=== PATIENT | female | born 1940 | race Caucasian/White ===

== ENCOUNTER 2020-03-09 10:21 | Outpatient (CLI) | payer MEDICARE, SELFPAY ==
[2020-03-09 11:07] LABS: Basophils Percent Auto 0.4 % (0.2-1.2); Eosinophils Absolute Auto 0.3 K/mm3 (0-0.3); Eosinophils Percent Auto 4.8 % (0-4.4); Hematocrit 39.4 % (37.0-47.0); Hemoglobin 12.9 g/dL (12.0-15.0); Hemoglobin A1C 6.4 % (<5.7); Immature Granulocyte Absolute 0.06 K/mm3 (0.00-0.031); Immature Granulocyte Percent A 0.9 % (0-0.5); Lymphocytes Absolute Auto 1.57 K/mm3 (0.9-3.2); Lymphocytes Percent Auto 22.4 % (18.3-44.2); Mean Corpuscular HGB Conc 32.7 g/dl (32-36); Mean Corpuscular Volume 91.6 fl (80-100); Mean Platelet Volume 9.8 fl (7.4-10.4); Monocytes Absolute Auto 0.6 K/mm3 (0.1-0.6); Monocytes Percent Auto 8.8 % (2.6-8.5); Neutrophils Absolute Auto 4.4 K/mm3 (1.3-6.7); Neutrophils Percent Auto 62.7 % (45.5-73.1); Platelet Count Result 184 k/mm3 (150-375)
[2020-03-09 11:09] LABS: Alanine Aminotransferase 14 U/L (4-35); Albumin Level 4.1 g/dL (3.5-5.1); Alkaline Phosphatase 95 U/L (38-126); Aspartate Amino Transferase 22 U/L (14-36); Bilirubin,Total 0.6 mg/dL (0.2-1.3); Blood Urea Nitrogen 15 mg/dL (7-17); Calcium 8.7 mg/dL (8.4-10.2); Carbon Dioxide 26 mmol/L (22-30); Chloride 107 mmol/L (98-107); Cholesterol 147 mg/dL (0-200); Estimated Glomerular Filt Rate > 60; Glucose 124 mg/dL (65-105); HDL Direct 57 mg/dL; Sodium 139 mmol/L (137-145); Triglycerides 93 mg/dL (<150)
[2020-03-09 11:20] LABS: LDL Cholesterol Direct 61 mg/dL
[2020-03-09 11:26] LABS: Creatinine Urine 50.3 mg/dL
[2020-03-09 11:30] LABS: MALB Creatinine Ratio 49.9 mg/g (0-30); Microalbumin Urine Random 25.1 mg/L (0-16.7)
== END 2020-03-09 10:22 | disposition home or self-care (01) ==
PROVIDERS: PCP Family Medicine; Visit Provider Family Medicine
DX: J44.9 Chronic obstructive pulmonary disease, unspecified (principal); E78.5 Hyperlipidemia, unspecified; E11.9 Type 2 diabetes mellitus without complications; I95.1 Orthostatic hypotension; E53.8 Deficiency of other specified B group vitamins; D50.9 Iron deficiency anemia, unspecified
CPT/HCPCS: 36415; 80053; 80061; 82043; 82607; 83036; 84443; 85025

== ENCOUNTER 2020-06-30 15:39 | Outpatient (CLI) | payer MEDICARE, SELFPAY ==
[2020-06-30 16:20] LABS: Basophils Percent Auto 0.3 % (0.2-1.2); Eosinophils Absolute Auto 0.4 K/mm3 (0-0.3); Eosinophils Percent Auto 4.8 % (0-4.4); Hematocrit 39.6 % (37.0-47.0); Immature Granulocyte Absolute 0.01 K/mm3 (0.00-0.031); Immature Granulocyte Percent A 0.1 % (0-0.5); Lymphocytes Absolute Auto 1.55 K/mm3 (0.9-3.2); Mean Corpuscular HGB Conc 32.8 g/dl (32-36); Mean Corpuscular Hemoglobin 29.3 pg (26-34); Mean Corpuscular Volume 89.4 fl (80-100); Mean Platelet Volume 10.3 fl (7.4-10.4); Monocytes Absolute Auto 0.8 K/mm3 (0.1-0.6); Monocytes Percent Auto 9.3 % (2.6-8.5); Neutrophils Absolute Auto 5.8 K/mm3 (1.3-6.7); Neutrophils Percent Auto 67.5 % (45.5-73.1); Platelet Count Result 194 k/mm3 (150-375); Red Blood Count 4.43 M/mm3 (4.2-5.4); Red Cell Distribution Width 14.1 % (11.5-14.5); White Blood Count 8.6 K/mm3 (4.5-10.0)
== END 2020-06-30 15:40 | disposition home or self-care (01) ==
PROVIDERS: PCP Family Medicine; Visit Provider Internal Medicine Medical Oncology
DX: D50.9 Iron deficiency anemia, unspecified (principal)
CPT/HCPCS: 36415; 82728; 85025

== ENCOUNTER 2020-09-26 14:06 | Outpatient (CLI) | payer MEDICARE, SELFPAY ==
[2020-09-26 15:02] LABS: Basophils Percent Auto 0.3 % (0.2-1.2); Eosinophils Absolute Auto 0.3 K/mm3 (0-0.3); Eosinophils Percent Auto 2.1 % (0-4.4); Hematocrit 42.9 % (37.0-47.0); Hemoglobin 14.3 g/dL (12.0-15.0); Immature Granulocyte Absolute 0.06 K/mm3 (0.00-0.031); Immature Granulocyte Percent A 0.5 % (0-0.5); Lymphocytes Absolute Auto 1.47 K/mm3 (0.9-3.2); Lymphocytes Percent Auto 12.1 % (18.3-44.2); Mean Corpuscular HGB Conc 33.3 g/dl (32-36); Mean Corpuscular Hemoglobin 29.7 pg (26-34); Mean Platelet Volume 9.7 fl (7.4-10.4); Monocytes Percent Auto 7.8 % (2.6-8.5); Neutrophils Absolute Auto 9.3 K/mm3 (1.3-6.7); Neutrophils Percent Auto 77.2 % (45.5-73.1); Platelet Count Result 188 k/mm3 (150-375); Red Blood Count 4.82 M/mm3 (4.2-5.4); Red Cell Distribution Width 14.8 % (11.5-14.5); White Blood Count 12.1 K/mm3 (4.5-10.0)
[2020-09-26 15:15] LABS: Alanine Aminotransferase 17 U/L (4-35); Albumin Level 4.1 g/dL (3.5-5.1); Alkaline Phosphatase 83 U/L (38-126); Anion Gap 9 mmol/L (8-16); Aspartate Amino Transferase 25 U/L (14-36); Bilirubin,Total 0.6 mg/dL (0.2-1.3); Blood Urea Nitrogen 14 mg/dL (7-17); Calcium 9.1 mg/dL (8.4-10.2); Carbon Dioxide 28 mmol/L (22-30); Chloride 105 mmol/L (98-107); Cholesterol 153 mg/dL (0-200); Estimated Glomerular Filt Rate > 60; Glucose 123 mg/dL (65-105); HDL Direct 68 mg/dL; Potassium 3.9 mmol/L (3.4-5.0); Sodium 142 mmol/L (137-145); Triglycerides 155 mg/dL (<150)
[2020-09-26 15:26] LABS: LDL Cholesterol Direct 50 mg/dL
[2020-09-26 16:28] LABS: Vitamin D 25 Hydroxy 16.1 ng/mL
[2020-09-26 17:18] LABS: Ferritin 9.79 ng/mL (11.1-264)
== END 2020-09-26 14:07 | disposition home or self-care (01) ==
PROVIDERS: PCP Family Medicine; Referring Provider Internal Medicine Medical Oncology; Visit Provider Nurse Practitioner
DX: E78.5 Hyperlipidemia, unspecified (principal); E11.9 Type 2 diabetes mellitus without complications; E55.9 Vitamin D deficiency, unspecified; E53.8 Deficiency of other specified B group vitamins; D50.9 Iron deficiency anemia, unspecified
CPT/HCPCS: 36415; 80053; 80061; 82306; 82607; 82728; 85025

== ENCOUNTER 2021-03-20 14:18 | Outpatient (CLI) | payer MEDICARE, SELFPAY ==
[2021-03-20 14:59] LABS: Basophils Percent Auto 0.4 % (0.2-1.2); Eosinophils Absolute Auto 0.3 K/mm3 (0-0.3); Hematocrit 39.6 % (37.0-47.0); Hemoglobin 12.9 g/dL (12.0-15.0); Immature Granulocyte Absolute 0.04 K/mm3 (0.00-0.031); Immature Granulocyte Percent A 0.4 % (0-0.5); Lymphocytes Absolute Auto 1.46 K/mm3 (0.9-3.2); Mean Corpuscular HGB Conc 32.6 g/dl (32-36); Mean Corpuscular Hemoglobin 29.3 pg (26-34); Mean Corpuscular Volume 89.8 fl (80-100); Mean Platelet Volume 9.9 fl (7.4-10.4); Monocytes Absolute Auto 0.7 K/mm3 (0.1-0.6); Neutrophils Absolute Auto 6.6 K/mm3 (1.3-6.7); Neutrophils Percent Auto 72.2 % (45.5-73.1); Platelet Count Result 191 k/mm3 (150-375); Red Blood Count 4.41 M/mm3 (4.2-5.4); Red Cell Distribution Width 14.1 % (11.5-14.5); White Blood Count 9.2 K/mm3 (4.5-10.0)
[2021-03-20 15:10] LABS: Alanine Aminotransferase 15 U/L (4-35); Albumin Level 4.1 g/dL (3.5-5.1); Alkaline Phosphatase 73 U/L (38-126); Anion Gap 9 mmol/L (8-16); Aspartate Amino Transferase 25 U/L (14-36); Bilirubin,Total 0.6 mg/dL (0.2-1.3); Blood Urea Nitrogen 15 mg/dL (7-17); Calcium 9.2 mg/dL (8.4-10.2); Carbon Dioxide 26 mmol/L (22-30); Chloride 107 mmol/L (98-107); Cholesterol 147 mg/dL (0-200); Estimated Glomerular Filt Rate > 60; Glucose 145 mg/dL (65-105); HDL Direct 73 mg/dL; Potassium 4.1 mmol/L (3.4-5.0); Sodium 142 mmol/L (137-145); Triglycerides 110 mg/dL (<150)
[2021-03-20 15:21] LABS: LDL Cholesterol Direct 43 mg/dL
[2021-03-20 16:06] LABS: Vitamin B12 > 1000.0 pg/mL (239-931)
[2021-03-20 16:34] LABS: Vitamin D 25 Hydroxy 54.7 ng/mL
== END 2021-03-20 14:19 | disposition home or self-care (01) ==
PROVIDERS: PCP Nurse Practitioner; Referring Provider Internal Medicine Medical Oncology; Visit Provider Nurse Practitioner
DX: E78.5 Hyperlipidemia, unspecified (principal); I10 Essential (primary) hypertension; E55.9 Vitamin D deficiency, unspecified; E53.8 Deficiency of other specified B group vitamins; D50.9 Iron deficiency anemia, unspecified
CPT/HCPCS: 36415; 80053; 80061; 82306; 82607; 82728; 85025

== ENCOUNTER 2021-03-29 16:08 | Outpatient (CLI) | payer MEDICARE, SELFPAY ==
[2021-03-29 16:35] LABS: Hemoglobin A1C 6.3 % (<5.7)
== END 2021-03-29 16:09 | disposition home or self-care (01) ==
PROVIDERS: PCP Nurse Practitioner; Visit Provider Nurse Practitioner
DX: R73.9 Hyperglycemia, unspecified (principal)
CPT/HCPCS: 36415; 83036

== ENCOUNTER 2021-04-05 15:28 | Outpatient (CLI) | payer MEDICARE, SELFPAY ==
--- NOTE | ~2021-04-05 | MM_ITS ---
EXAMINATION: MM screening reuben BI w shyla HISTORY: Screening mammogram TECHNIQUE: Craniocaudal and mediolateral oblique 3-D tomosynthesis images were obtained and synthetic 2-D images were generated. CAD analysis was submitted and interpreted. COMPARISON: 09/01/2019 diagnostic right mammogram and limited right breast ultrasound 08/13/2019, 03/03/2018, 02/27/2017 bilateral digital screening mammogram examinations BREAST PARENCHYMAL COMPOSITION: There are scattered areas of fibroglandular density. FINDINGS: Scattered bilateral benign calcifications. There is no evidence of suspicious mass, calcifi cation, or architectural distortion to suggest malignancy in either breast. There has been no suspici ous interval change. IMPRESSION: 1. No mammographic evidence of malignancy. 2. Recommend routine screening mammography in one year. BI-RADS Category 2: Benign finding(s). Reviewed, dictated and finalized at location A.
== END 2021-04-05 15:29 | disposition home or self-care (01) ==
LOC: ANHIMG 15:31
PROVIDERS: PCP Nurse Practitioner; Visit Provider Family Medicine
DX: Z12.31 Encounter for screening mammogram for malignant neoplasm of breast (principal)
CPT/HCPCS: 77063; 77067

== ENCOUNTER 2021-07-26 10:48 | Outpatient (CLI) | payer MEDICARE, SELFPAY ==
[2021-07-26 11:43] LABS: Alanine Aminotransferase 16 U/L (4-35); Albumin Level 4.5 g/dL (3.5-5.1); Alkaline Phosphatase 76 U/L (38-126); Anion Gap 8 mmol/L (8-16); Aspartate Amino Transferase 27 U/L (14-36); Bilirubin,Total 0.8 mg/dL (0.2-1.3); Blood Urea Nitrogen 13 mg/dL (7-17); Calcium 9.3 mg/dL (8.4-10.2); Carbon Dioxide 26 mmol/L (22-30); Chloride 107 mmol/L (98-107); Estimated Glomerular Filt Rate > 60; Glucose 137 mg/dL (65-110); Potassium 4.2 mmol/L (3.4-5.0); Sodium 141 mmol/L (137-145)
[2021-07-26 13:23] LABS: Hemoglobin A1C 6.2 % (<5.7)
== END 2021-07-26 10:49 | disposition home or self-care (01) ==
LOC: ANHLAB 10:49
PROVIDERS: PCP Nurse Practitioner; Visit Provider Family Medicine
DX: E11.9 Type 2 diabetes mellitus without complications (principal); I10 Essential (primary) hypertension
CPT/HCPCS: 36415; 80053; 83036

== ENCOUNTER 2021-08-02 15:31 | Outpatient (CLI) | payer MEDICARE, SELFPAY ==
--- NOTE | ~2021-08-02 | XR_ITS ---
XR chest 2V 08/02/2021 16:02 Indication: Chronic cough Procedure: 2 view chest Comparison: Comparison to multiple prior studies sequentially, with oldest reviewed study dated Andre rison to multiple prior studies sequentially, with oldest reviewed study dated 08/09/2008. . Findings: Heart size is normal. Bibasilar atelectasis/scarring. Heart size normal. Status post median sternotomy for CABG. No edema or pneumothorax. No acute osseous abnormality. There is a prosthetic h eart valve. Impression: 1: Linear bibasilar subsegmental atelectasis/scarring. Reviewed, dictated and finalized at location B. Impression: 1: Linear bibasilar subsegmental atelectasis/scarring.
== END 2021-08-02 15:32 | disposition home or self-care (01) ==
PROVIDERS: PCP Family Medicine; Visit Provider Family Medicine
DX: R05.3 Chronic cough (principal); Z95.2 Presence of prosthetic heart valve
CPT/HCPCS: 71046

== ENCOUNTER 2021-09-04 16:29 | Emergency (ER) | payer MEDICARE, SELFPAY ==
[2021-09-04 16:38] VITALS: BP 145/66; PULSE 86; RESP 16; TEMP 36.7; O2SAT 95
--- NOTE | 2021-09-04 16:46 | ED.FEMALEGU ---
HPI - Female Genitourinary General Chief complaint: Urogenital-Female Stated complaint: Female Urogenital Time Seen by Provider: 09/04/21 16:46 Source: patient Mode of arrival: ambulatory Limitations: no limitations History of Present Illness HPI Narrative: Mary Ann Reyes is a 80 yo female with a PMH of COPD, high cholesterol, GERD, HTN, difficulty sleeping, Ms. to [facility] with complaints of urinary tract infection which include frequency burning and spasm after urinating since Saturday. She has been drinking a lot of water, has taken Azo [facility] try and treat symptoms. She has urologist but called the office and so this holiday week and they would not be able to fit her into the schedule Related Data Home Medications Medication Instructions Recorded Confirmed Lactobacillus acidophilus 10 cell PO DAILY cap 11/19/19 02/21/21 billion cell capsule acetaminophen 500 mg tablet 500 mg PO Q6H PRN 11/19/19 02/21/21 aspirin 81 mg tablet,delayed 81 mg PO DAILY 11/19/19 02/21/21 release atorvastatin 20 mg tablet 20 mg PO DAILY 11/19/19 02/21/21 esomeprazole magnesium 20 mg 20 mg PO DAILY 11/19/19 02/21/21 capsule,delayed release cholecalciferol (vitamin D3) 50 50 mcg PO DAILY 07/24/21 07/24/21 mcg (2,000 unit) capsule mirabegron [Myrbetriq] mg PO 09/04/21 zolpidem 09/04/21 Allergies Allergy/AdvReac Type Severity Reaction Status Date / Time Penicillins Allergy Unknown Unknown Verified 02/25/20 13:07 Review of Systems Review of Systems: CONSTITUTIONAL: Denies fever, chills, sweats. EYES: Denies visual changes, redness, discharge. ENT: Denies rhinorrhea, congestion, sore throat, otalgia. CARDIOVASCULAR: Denies chest pain, palpitations, edema. RESPIRATORY: Denies dyspnea, wheezing, cough GASTROINTESTINAL: Denies abdominal pain, nausea, vomiting, diarrhea. GENITOURINARY: Has dysuria, hematuria, abnormal discharge SKIN: Denies rash or itching. NEUROLOGIC: Denies numbness, or focal weakness. PSYCHIATRIC: Denies anxiety or depression. [facility] Past Medical History Medical History Aortic stenosis 03/2014 Benign brain tumor COPD (chronic obstructive pulmonary disease) Diastolic dysfunction Dyslipidemia Essential (primary) hypertension External hemorrhoid GERD without esophagitis Hypertension Insomnia Iron deficiency Moderate aortic stenosis OAB (overactive bladder) Type 2 diabetes mellitus without complication, without long-term current use of insulin Vitamin B12 deficiency Surgical History Surgical History History of aortic valve replacement 04/2019 History of cataract surgery History of cholecystectomy 04/2014 History of right hemicolectomy 07/2008 Social History Social History Smoking status: Former smoker Tobacco type: cigarettes Second hand tobacco smoke exposure: No Smoking end date: 10/14/86 Alcohol intake: current Alcohol use details: 1 beer consumed weekly Substance use: never Substance use type: does not use Comments At time of signature, I agree with nursing past medical, surgical, social and family history. There is no relevant family history pertinent to the presenting complaint. Exam Narrative: GENERAL: This is a well-nourished, well-developed patient, in mild distress. HEAD: normocephalic, atraumatic. EYES: Sclera clear/white. Vision is grossly intact. EARS: External ears normal. Hearing grossly intact. NOSE: External nose normal without nasal discharge, nares without redness, no rhinorrhea. THROAT: Mucous membranes moist, NECK: Neck supple, CARDIOVASCULAR: Regular rate and rhythm without murmurs, gallops, or rubs. RESPIRATORY: Clear to auscultation. Breath sounds equal bilaterally. rhonchi on expiration. GASTROINTESTINAL: Abdomen soft, SKIN: warm, intact with no rodriguez
== END 2021-09-04 17:18 | disposition home or self-care (01) ==
PROVIDERS: Emergency Provider Nurse Practitioner; PCP Family Medicine
DX: N30.01 Acute cystitis with hematuria (principal); Z87.891 Personal history of nicotine dependence; J44.9 Chronic obstructive pulmonary disease, unspecified; E78.5 Hyperlipidemia, unspecified; I10 Essential (primary) hypertension; K21.9 Gastro-esophageal reflux disease without esophagitis; I35.0 Nonrheumatic aortic (valve) stenosis; E11.9 Type 2 diabetes mellitus without complications; Z79.4 Long term (current) use of insulin; E53.8 Deficiency of other specified B group vitamins
CPT/HCPCS: 81003; 87086; 87088; 99213; G0463

== ENCOUNTER 2022-01-24 13:55 | Emergency (ER) | payer MEDICARE, SELFPAY ==
[2022-01-24] VITALS (10 sets, daily range): BP systolic 116–156; BP diastolic 59–88; PULSE 78–80; RESP 16; TEMP 36.6; O2SAT 97–100
--- NOTE | 2022-01-24 14:46 | ED.RECABL ---
HPI - Recheck/Abnormal Lab/Rx General Chief Complaint: Recheck/Abnormal Lab/Rx Stated Complaint: abnormal kidney function Time Seen by Provider: 01/24/22 14:03 Source: patient, RN notes reviewed and old records reviewed Mode of arrival: ambulatory Limitations: no limitations History of Present Illness HPI narrative: This is an 81 year old female with history of anemia, COPD, and hypertension who presents for evaluation of abnormal labs. Patient was evaluated by PCP and she had routine labs 2 days ago. She was called today by PCP, and she was told to come to ER for decreased renal function. She denies any nausea, vomiting, diarrhea, chest pain, shortness of breath, weakness or dizziness. She states she was also told her hemoglobin in her labs were 8. She states she has only had 2 small episodes over past several months in which she had bright red blood with bowel movements. She denies melena. She reports he has had multiple colonscopies in the past for evaluation of anemia. She was cleared by her eyeglass frames inspector, Dr. Brandon, 1 year ago. Related Data Home Medications Medication Instructions Recorded Confirmed Lactobacillus acidophilus 10 cell PO DAILY cap 11/19/19 01/22/22 billion cell capsule acetaminophen 500 mg tablet 500 mg PO Q6H PRN 11/19/19 01/22/22 aspirin 81 mg tablet,delayed 81 mg PO DAILY 11/19/19 01/22/22 release cholecalciferol (vitamin D3) 50 50 mcg PO DAILY 07/24/21 01/22/22 mcg (2,000 unit) capsule esomeprazole magnesium 20 mg 40 mg PO DAILY cap 01/22/22 01/22/22 capsule,delayed release mecobalamin (vitamin B12) 1,000 1,000 mcg SUBLINGUAL 01/22/22 01/22/22 mcg disintegrating .everyotherday tablet tablet,sublingual Allergies Allergy/AdvReac Type Severity Reaction Status Date / Time Penicillins Allergy Unknown Unknown Verified 01/22/22 13:42 Review of Systems Review of Systems: All systems reviewed & are unremarkable except as noted in HPI and below ENT: Reports nasal congestion (chronic) Cardiovascular: Cardiovascular: Denies chest pain, Denies rapid heart rate and Denies radiating jaw, neck or arm pain Respiratory: Respiratory: Reports cough (chronic), Denies dyspnea and Denies wheezing Gastrointestinal: Gastrointestinal: Denies abdominal pain, Denies diarrhea, Denies nausea and Denies vomiting [facility] Past Medical History Medical History Aortic stenosis 03/2014 Benign brain tumor COPD (chronic obstructive pulmonary disease) Diastolic dysfunction Dyslipidemia Essential (primary) hypertension External hemorrhoid GERD without esophagitis Insomnia Iron deficiency Moderate aortic stenosis OAB (overactive bladder) Type 2 diabetes mellitus without complication, without long-term current use of insulin Vitamin B12 deficiency Surgical History Surgical History History of aortic valve replacement 04/2019 History of cataract surgery History of cholecystectomy 04/2014 History of right hemicolectomy 07/2008 Social History Social History Tobacco type: cigarettes Second hand tobacco smoke exposure: No Smoking end date: 10/14/86 Alcohol intake: current Alcohol use details: 1 beer consumed weekly Substance use: never Substance use type: does not use Exam Const: General: no acute distress and alert Orientation/consciousness: patient oriented x3 Eyes: EOM: EOMs intact bilaterally Chest: Chest palpation & inspection: normal inspection of the chest Resp: Effort & Inspection: normal respiratory effort, not labored and not tachypneic Auscultation: wheezes Cardio: Rate: regular rate Rhythm: regular rhythm Heart sounds: Murmur heart sound present systolic GI: GI Palp: Yes Soft to palpation, No Tenderness to palpation present (GI) and No Guarding due to palpation present (GI) Auscu
[2022-01-24 15:01] LABS: Basophils Percent Auto 0.4 % (0.2-1.2); Eosinophils Absolute Auto 0.2 K/mm3 (0-0.3); Eosinophils Percent Auto 2.5 % (0-4.4); Hematocrit 40.3 % (37.0-47.0); Hemoglobin 13.3 g/dL (12.0-15.0); Immature Granulocyte Absolute 0.05 K/mm3 (0.00-0.031); Immature Granulocyte Percent A 0.5 % (0-0.5); Lymphocytes Absolute Auto 1.48 K/mm3 (0.9-3.2); Lymphocytes Percent Auto 15.2 % (18.3-44.2); Mean Corpuscular Hemoglobin 29.4 pg (26-34); Mean Corpuscular Volume 89.2 fl (80-100); Mean Platelet Volume 9.9 fl (7.4-10.4); Monocytes Absolute Auto 0.9 K/mm3 (0.1-0.6); Monocytes Percent Auto 9.5 % (2.6-8.5); Neutrophils Percent Auto 71.9 % (45.5-73.1); Platelet Count Result 217 k/mm3 (150-375); Red Blood Count 4.52 M/mm3 (4.2-5.4); Red Cell Distribution Width 14.4 % (11.5-14.5); White Blood Count 9.7 K/mm3 (4.5-10.0)
[2022-01-24] MEDS: SODIUM CHLORIDE 0.9% IV 1,000 ML 999 ML IV CONT (15:09)
[2022-01-24 15:10] LABS: Alanine Aminotransferase 14 U/L (4-35); Alkaline Phosphatase 77 U/L (38-126); Anion Gap 8 mmol/L (8-16); Aspartate Amino Transferase 24 U/L (14-36); Bilirubin,Total 0.5 mg/dL (0.2-1.3); Blood Urea Nitrogen 15 mg/dL (7-17); Calcium 8.8 mg/dL (8.4-10.2); Carbon Dioxide 27 mmol/L (22-30); Chloride 103 mmol/L (98-107); Estimated CRCL calculation 60 ml/min; Estimated Glomerular Filt Rate > 60; Glucose 102 mg/dL (65-110); Potassium 3.9 mmol/L (3.4-5.0); Sodium 138 mmol/L (137-145)
[2022-01-24 15:14] LABS: INR 1.1; Prothrombin Time 13.3 Seconds (11.1-14.7)
[2022-01-24 15:15] LABS: Partial Thromboplastin Time 30.4 SECONDS (22.3-36.8)
[2022-01-24 15:38] LABS: Iron 75 ug/dL (37-170)
[2022-01-24 15:49] LABS: Percent Iron Saturation 20 % (20-50)
--- NOTE | 2022-01-30 07:46 | PC.NURSE ---
late entry 01/24/22 1609 ns infused
== END 2022-01-24 16:27 | disposition home or self-care (01) ==
PROVIDERS: Emergency Provider General Practice; PCP Family Medicine
DX: R94.4 Abnormal results of kidney function studies (principal); D50.9 Iron deficiency anemia, unspecified; J44.9 Chronic obstructive pulmonary disease, unspecified; E78.5 Hyperlipidemia, unspecified; I10 Essential (primary) hypertension; I35.0 Nonrheumatic aortic (valve) stenosis; E11.9 Type 2 diabetes mellitus without complications; K21.9 Gastro-esophageal reflux disease without esophagitis; E53.8 Deficiency of other specified B group vitamins; Z79.82 Long term (current) use of aspirin; Z95.2 Presence of prosthetic heart valve; Z98.49 Cataract extraction status, unspecified eye; Z90.49 Acquired absence of other specified parts of digestive tract; Z87.891 Personal history of nicotine dependence
CPT/HCPCS: 36415; 80053; 83540; 83550; 85025; 85610; 85730; 96360; 99283; J7030

== ENCOUNTER 2022-08-23 11:05 | Outpatient (CLI) | payer MEDICARE, SELFPAY ==
[2022-08-23 19:40] LABS: Basophils Percent Auto 0.5 % (0.2-1.2); Eosinophils Absolute Auto 0.3 K/mm3 (0-0.3); Eosinophils Percent Auto 2.9 % (0-4.4); Hematocrit 42.1 % (37.0-47.0); Hemoglobin 13.2 g/dL (12.0-15.0); Immature Granulocyte Absolute 0.03 K/mm3 (0.00-0.031); Immature Granulocyte Percent A 0.3 % (0-0.5); Lymphocytes Absolute Auto 1.75 K/mm3 (0.9-3.2); Lymphocytes Percent Auto 20.3 % (18.3-44.2); Mean Corpuscular HGB Conc 31.4 g/dl (32-36); Mean Corpuscular Hemoglobin 28.4 pg (26-34); Mean Corpuscular Volume 90.7 fl (80-100); Mean Platelet Volume 10.7 fl (7.4-10.4); Monocytes Absolute Auto 0.7 K/mm3 (0.1-0.6); Monocytes Percent Auto 7.5 % (2.6-8.5); Neutrophils Absolute Auto 5.9 K/mm3 (1.3-6.7); Neutrophils Percent Auto 68.5 % (45.5-73.1); Platelet Count Result 227 k/mm3 (150-375); Red Blood Count 4.64 M/mm3 (4.2-5.4); Red Cell Distribution Width 14.7 % (11.5-14.5); White Blood Count 8.6 K/mm3 (4.5-10.0)
[2022-08-23 19:43] LABS: Alanine Aminotransferase 17 U/L (6-35); Albumin Level 4.3 g/dL (3.5-5.1); Alkaline Phosphatase 74 U/L (38-126); Anion Gap 10 mmol/L (8-16); Aspartate Amino Transferase 24 U/L (14-36); Bilirubin,Total 0.6 mg/dL (0.2-1.3); Blood Urea Nitrogen 12 mg/dL (7-17); Carbon Dioxide 25 mmol/L (22-30); Chloride 105 mmol/L (98-107); Cholesterol 192 mg/dL (0-200); Estimated Glomerular Filt Rate > 60; Glucose 102 mg/dL (65-110); HDL Direct 63 mg/dL; Potassium 4.2 mmol/L (3.4-5.0); Sodium 140 mmol/L (137-145); Triglycerides 88 mg/dL (<150)
[2022-08-23 19:54] LABS: LDL Cholesterol Direct 89 mg/dL
[2022-08-23 20:01] LABS: Hemoglobin A1C 6.2 % (<5.7)
[2022-08-23 20:03] LABS: Vitamin D 25 Hydroxy 51.9 ng/mL
[2022-08-23 20:40] LABS: Vitamin B12 > 1000.0 pg/mL (239-931)
== END 2022-08-23 11:06 | disposition home or self-care (01) ==
LOC: ANHGOSHLAB 11:10
PROVIDERS: PCP Family Medicine; Visit Provider Family Medicine
DX: G47.00 Insomnia, unspecified (principal); E55.9 Vitamin D deficiency, unspecified; E78.5 Hyperlipidemia, unspecified; I10 Essential (primary) hypertension; R73.03 Prediabetes
CPT/HCPCS: 36415; 80053; 80061; 82306; 82607; 83036; 84443; 85025

== ENCOUNTER 2023-02-19 14:25 | Outpatient (CLI) | payer MEDICARE, SELFPAY ==
[2023-02-19 19:25] LABS: Basophils Absolute Auto 0.1 K/mm3 (0.0-0.1); Basophils Percent Auto 0.6 % (0.2-1.2); Eosinophils Absolute Auto 0.3 K/mm3 (0-0.3); Hematocrit 40.1 % (37.0-47.0); Hemoglobin 12.5 g/dL (12.0-15.0); Immature Granulocyte Absolute 0.05 K/mm3 (0.00-0.031); Immature Granulocyte Percent A 0.4 % (0-0.5); Lymphocytes Absolute Auto 1.79 K/mm3 (0.9-3.2); Lymphocytes Percent Auto 14.3 % (18.3-44.2); Mean Corpuscular HGB Conc 31.2 g/dl (32-36); Mean Corpuscular Hemoglobin 28.2 pg (26-34); Mean Corpuscular Volume 90.3 fl (80-100); Mean Platelet Volume 10.2 fl (7.4-10.4); Monocytes Absolute Auto 1.1 K/mm3 (0.1-0.6); Monocytes Percent Auto 9.1 % (2.6-8.5); Neutrophils Absolute Auto 9.2 K/mm3 (1.3-6.7); Neutrophils Percent Auto 73.6 % (45.5-73.1); Platelet Count Result 246 k/mm3 (150-375); Red Blood Count 4.44 M/mm3 (4.2-5.4); Red Cell Distribution Width 15.6 % (11.5-14.5); White Blood Count 12.5 K/mm3 (4.5-10.0)
[2023-02-19 20:06] LABS: Alanine Aminotransferase 17 U/L (6-35); Albumin Level 4.1 g/dL (3.5-5.1); Alkaline Phosphatase 76 U/L (38-126); Anion Gap 7 mmol/L (8-16); Aspartate Amino Transferase 41 U/L (14-36); Bilirubin,Total 0.6 mg/dL (0.2-1.3); Blood Urea Nitrogen 13 mg/dL (7-17); Calcium 8.6 mg/dL (8.4-10.2); Carbon Dioxide 29 mmol/L (22-30); Chloride 102 mmol/L (98-107); Estimated Glomerular Filt Rate > 60; Glucose 92 mg/dL (65-110); Potassium 3.8 mmol/L (3.4-5.0); Sodium 138 mmol/L (137-145)
== END 2023-02-19 14:26 | disposition home or self-care (01) ==
LOC: ANHGOSHLAB 14:26
PROVIDERS: PCP Family Medicine; Visit Provider Nurse Practitioner Family
DX: E11.9 Type 2 diabetes mellitus without complications (principal); I10 Essential (primary) hypertension
CPT/HCPCS: 36415; 80053; 83036; 85025

== ENCOUNTER 2023-03-05 14:36 | Outpatient (CLI) | payer MEDICARE, SELFPAY | END 2023-03-05 14:37 | disposition home or self-care (01) | LOC: ANHGOSHLAB 14:37 | PROVIDERS: PCP Family Medicine; Visit Provider Family Medicine | DX: R30.0 Dysuria (principal) | CPT/HCPCS: 87077; 87086; 87186 ==

== ENCOUNTER 2023-08-22 09:30 | Emergency (ER) | payer MEDICARE, SELFPAY ==
[2023-08-22 09:51] VITALS: BP 124/79; PULSE 85; RESP 16; TEMP 37.3; O2SAT 87
--- NOTE | 2023-08-22 10:20 | ED.EXTPRO ---
HPI - Extremity Problem General Chief complaint: Extremity Problem,Nontraumatic Stated complaint: R LEG SWELLING/REDNESS Time Seen by Provider: 08/22/23 10:25 Source: patient Mode of arrival: ambulatory Limitations: no limitations History of Present Illness HPI Narrative: 82-year-old female with hx COPD presented for complaint of right lower leg redness, swelling, and pain over the past week. Pain is to the calf and ozuna with touch. Reports redness to the ozuna has been increasing. Denies chest pain, palpitations, sob, dizziness, n/v/d/f/c. Not taking anything for pain. Hx TAVR, no anticoagulants currently. Related Data Home Medications Medication Instructions Recorded Confirmed Lactobacillus acidophilus 10 1 mmu cells PO DAILY 11/19/19 08/22/23 billion cell capsule (Probiotic) acetaminophen 500 mg tablet 500 mg PO Q6H PRN Pain 11/19/19 08/22/23 aspirin 81 mg tablet,delayed 81 mg PO DAILY 11/19/19 08/22/23 release (Adult Aspirin Regimen) esomeprazole magnesium 20 mg 40 mg PO DAILY 01/22/22 08/22/23 capsule,delayed release mecobalamin (vitamin B12) 1,000 1,000 mcg sublingual .everyotherday 01/22/22 08/22/23 mcg disintegrating tablet,sublingual cholecalciferol (vitamin D3) 25 25 mcg PO DAILY 08/21/22 08/22/23 mcg (1,000 unit) capsule loperamide 2 mg capsule 2 mg PO DAILY 08/21/22 08/22/23 Allergies Allergy/AdvReac Type Severity Reaction Status Date / Time Penicillins Allergy Unknown Unknown Verified 08/22/23 09:46 Review of Systems Review of Systems: CONSTITUTIONAL: Denies body aches, fever, chills EYES: Denies visual changes ENT: Denies rhinorrhea, congestion CARDIOVASCULAR: Reports right leg swelling denies chest pain, palpitations RESPIRATORY: Reports baseline cough, dyspnea. GASTROINTESTINAL: Denies abdominal pain, nausea, vomiting, or diarrhea. SKIN: Denies rash, itching, or wounds. MUSCULOSKELETAL: Reports chronic back pain, joint pain NEUROLOGIC: Denies headache, numbness, tingling, or weakness. All systems reviewed & are unremarkable except as noted in HPI and below PMFSH Past Medical History Medical History Aortic stenosis 03/2014 Benign brain tumor COPD (chronic obstructive pulmonary disease) Diastolic dysfunction Dyslipidemia Essential (primary) hypertension External hemorrhoid GERD without esophagitis Insomnia Iron deficiency Moderate aortic stenosis OAB (overactive bladder) Prediabetes Type 2 diabetes mellitus without complication, without long-term current use of insulin Vitamin B12 deficiency Surgical History Surgical History History of aortic valve replacement 04/2019 History of cataract surgery History of cholecystectomy 04/2014 History of right hemicolectomy 07/2008 Social History Social History Smoking status: Former smoker Tobacco type: cigarettes Second hand tobacco smoke exposure: No Smoking end date: 10/14/86 Alcohol intake: current Alcohol use details: 1 beer consumed weekly Substance use: never Substance use type: does not use Lack of Transportation: No Lack of Food: Never True Current Housing: I Have Housing Concerned About Future Housing: No Difficulty Paying Gas/Electric Bills: No Difficulty Paying for Meds: No Currently Unemployed: No Education: High School Diploma/GED Difficulty w/ Childcare or Family Care: No Living arrangements: with family Occupation/Education: retired Gender identity (if verbalized by the patient): Female Sexual Orientation (if Verbalized by the Patient): Straight or Heterosexual Agree to blood products: Yes Comments At time of signature, I have reviewed and agree with nursing past medical, surgical, social and family history unless otherwise noted. Please see nursing chart for further information. There is n
[2023-08-22 10:40] VITALS: O2SAT 92
[2023-08-22 10:42] VITALS: O2SAT 92
== END 2023-08-22 10:42 | disposition short-term general hospital (02) ==
PROVIDERS: Emergency Provider Nurse Practitioner Family; PCP Family Medicine
DX: M79.661 Pain in right lower leg (principal); R22.41 Localized swelling, mass and lump, right lower limb; Z87.891 Personal history of nicotine dependence; J44.9 Chronic obstructive pulmonary disease, unspecified; I10 Essential (primary) hypertension; K21.9 Gastro-esophageal reflux disease without esophagitis; E11.9 Type 2 diabetes mellitus without complications; E53.8 Deficiency of other specified B group vitamins; Z79.82 Long term (current) use of aspirin
CPT/HCPCS: 99212; G0463

== ENCOUNTER 2023-08-22 11:01 | Emergency (ER) | payer MEDICARE, SELFPAY ==
--- NOTE | ~2023-08-22 | US_ITS ---
EXAMINATION: US venous doppler LE RT DATE: 08/22/2023 12:37 INDICATION: Right lower limb pain and swelling TECHNIQUE: Grayscale ultrasound images without and with compression and Doppler ultrasound images of the right lower extremity veins were obtained. COMPARISON: None. FINDINGS: The visualized portions of right common femoral vein, profunda (deep) femoral vein, femoral vein, pop liteal vein, peroneal trunk, posterior tibial veins, peroneal veins, gastrocnemius vein and greater s aphenous vein outflow are patent. IMPRESSION: 1. No deep venous thrombosis in the right lower limb. Reviewed, dictated and finalized at location A. [employer]
[2023-08-22 11:12] VITALS: BP 117/58; PULSE 87; RESP 19; TEMP 37.3; O2SAT 95
--- NOTE | 2023-08-22 12:05 | ED.GENADULT ---
HPI - General Adult General Chief complaint: Extremity Problem,Nontraumatic Stated complaint: swollen extremity Time Seen by Provider: 08/22/23 11:11 History of Present Illness HPI narrative: Patient is an 82-year-old female who was referred to the ER from urgent care due to swelling to the right lower extremity. Over the last week she has had pain and swelling to the right calf and ozuna. There is mild erythema. No history of DVT. No known trauma. No fevers chills or sweats. She is without any chest pain or shortness of breath. Related Data Home Medications Medication Instructions Recorded Confirmed acetaminophen 500 mg tablet 500 mg PO Q6H PRN Pain 11/19/19 08/22/23 aspirin 81 mg tablet,delayed 81 mg PO DAILY 11/19/19 08/22/23 release (Adult Aspirin Regimen) esomeprazole magnesium 20 mg 40 mg PO DAILY 01/22/22 08/22/23 capsule,delayed release mecobalamin (vitamin B12) 1,000 1,000 mcg sublingual .everyotherday 01/22/22 08/22/23 mcg disintegrating tablet,sublingual cholecalciferol (vitamin D3) 25 25 mcg PO DAILY 08/21/22 08/22/23 mcg (1,000 unit) capsule loperamide 2 mg capsule 2 mg PO DAILY 08/21/22 08/22/23 Lactobacillus rhamnosus-Bifidobac. 1 cap PO DAILY 08/22/23 08/22/23 animalis 3 billion cell capsule ([employer] Allergies Allergy/AdvReac Type Severity Reaction Status Date / Time Penicillins Allergy Unknown Unknown Verified 08/22/23 09:46 Review of Systems Review of Systems: All systems reviewed & are unremarkable except as noted in HPI and below Constitutional: Constitutional: Denies chills and Denies fever(s) Cardiovascular: Cardiovascular: Denies chest pain, Denies rapid heart rate and Denies radiating jaw, neck or arm pain Respiratory: Respiratory: Denies cough, Denies dyspnea and Denies wheezing PMFSH Past Medical History Medical History Aortic stenosis 03/2014 Benign brain tumor COPD (chronic obstructive pulmonary disease) Diastolic dysfunction Dyslipidemia Essential (primary) hypertension External hemorrhoid GERD without esophagitis Insomnia Iron deficiency Moderate aortic stenosis OAB (overactive bladder) Prediabetes Type 2 diabetes mellitus without complication, without long-term current use of insulin Vitamin B12 deficiency Surgical History Surgical History History of aortic valve replacement 04/2019 History of cataract surgery History of cholecystectomy 04/2014 History of right hemicolectomy 07/2008 Social History Social History Smoking status: Former smoker Tobacco type: cigarettes Second hand tobacco smoke exposure: No Smoking end date: 10/14/86 Alcohol intake: current Alcohol use details: 1 beer consumed weekly Substance use: never Substance use type: does not use Lack of Transportation: No Lack of Food: Never True Current Housing: I Have Housing Concerned About Future Housing: No Difficulty Paying Gas/Electric Bills: No Difficulty Paying for Meds: No Currently Unemployed: No Education: High School Diploma/GED Difficulty w/ Childcare or Family Care: No Living arrangements: with family Occupation/Education: retired Gender identity (if verbalized by the patient): Female Sexual Orientation (if Verbalized by the Patient): Straight or Heterosexual Agree to blood products: Yes Exam Narrative: GENERAL: Well-appearing, well-nourished, and in no acute distress. HEAD: Normocephalic, atraumatic. EXTREMITIES: Normal range of motion. 2+ edema right lower extremity when compared to the left. Positive Homans' sign right calf. SKIN: Warm, dry, no rash. Erythema to the right ozuna and posterior calf. NEURO: Alert and oriented x3. PSYCH: Normal mood and affect. Course Course Emergency Course: Patient and son informed of results. D
== END 2023-08-22 13:28 | disposition home or self-care (01) ==
PROVIDERS: Emergency Provider Emergency Medicine; PCP Family Medicine
DX: L03.115 Cellulitis of right lower limb (principal); I35.0 Nonrheumatic aortic (valve) stenosis; J44.9 Chronic obstructive pulmonary disease, unspecified; I10 Essential (primary) hypertension; E78.5 Hyperlipidemia, unspecified; E11.9 Type 2 diabetes mellitus without complications; E53.8 Deficiency of other specified B group vitamins; N32.81 Overactive bladder; K21.9 Gastro-esophageal reflux disease without esophagitis; Z95.2 Presence of prosthetic heart valve; Z87.891 Personal history of nicotine dependence; Z98.49 Cataract extraction status, unspecified eye; Z90.49 Acquired absence of other specified parts of digestive tract; Z79.82 Long term (current) use of aspirin
CPT/HCPCS: 93971; 99284

== ENCOUNTER 2023-08-30 08:52 | Outpatient (CLI) | payer MEDICARE, SELFPAY ==
[2023-08-30 18:39] LABS: Basophils Absolute Auto 0.1 K/mm3 (0.0-0.1); Basophils Percent Auto 0.7 % (0.2-1.2); Eosinophils Absolute Auto 0.3 K/mm3 (0-0.3); Eosinophils Percent Auto 4.2 % (0-4.4); Hematocrit 38.6 % (37.0-47.0); Hemoglobin 12.1 g/dL (12.0-15.0); Immature Granulocyte Absolute 0.03 K/mm3 (0.00-0.031); Immature Granulocyte Percent A 0.4 % (0-0.5); Lymphocytes Absolute Auto 1.21 K/mm3 (0.9-3.2); Lymphocytes Percent Auto 15.8 % (18.3-44.2); Mean Corpuscular HGB Conc 31.3 g/dl (32-36); Mean Corpuscular Hemoglobin 26.4 pg (26-34); Mean Corpuscular Volume 84.3 fl (80-100); Monocytes Percent Auto 12.8 % (2.6-8.5); Neutrophils Absolute Auto 5.1 K/mm3 (1.3-6.7); Neutrophils Percent Auto 66.1 % (45.5-73.1); Platelet Count Result 225 k/mm3 (150-375); Red Blood Count 4.58 M/mm3 (4.2-5.4); Red Cell Distribution Width 16.5 % (11.5-14.5); White Blood Count 7.7 K/mm3 (4.5-10.0)
[2023-08-30 18:54] LABS: Alanine Aminotransferase 12 U/L (6-35); Albumin Level 3.7 g/dL (3.5-5.1); Alkaline Phosphatase 72 U/L (38-126); Anion Gap 10 mmol/L (8-16); Aspartate Amino Transferase 23 U/L (14-36); Bilirubin,Total 0.5 mg/dL (0.2-1.3); Blood Urea Nitrogen 11 mg/dL (7-17); Calcium 9.2 mg/dL (8.4-10.2); Carbon Dioxide 27 mmol/L (22-30); Chloride 102 mmol/L (98-107); Cholesterol 178 mg/dL (0-200); Estimated Glomerular Filt Rate > 60; Glucose 107 mg/dL (65-110); HDL Direct 50 mg/dL; Potassium 3.8 mmol/L (3.4-5.0); Sodium 139 mmol/L (137-145); Triglycerides 82 mg/dL (<150)
[2023-08-30 19:00] LABS: Vitamin D 25 Hydroxy 36.9 ng/mL
[2023-08-30 19:05] LABS: LDL Cholesterol Direct 94 mg/dL
[2023-08-30 20:17] LABS: Hemoglobin A1C 5.8 % (<5.7)
== END 2023-08-30 08:53 | disposition home or self-care (01) ==
PROVIDERS: PCP Family Medicine; Visit Provider Family Medicine
DX: E53.8 Deficiency of other specified B group vitamins (principal); Z00.00 Encounter for general adult medical examination without abnormal findings; I10 Essential (primary) hypertension; E78.5 Hyperlipidemia, unspecified; E55.9 Vitamin D deficiency, unspecified; E11.9 Type 2 diabetes mellitus without complications
CPT/HCPCS: 36415; 80053; 80061; 82306; 82607; 83036; 84443; 85025

== ENCOUNTER 2024-02-26 13:56 | Outpatient (CLI) | payer MEDICARE, SELFPAY ==
[2024-02-26 19:12] LABS: Hematocrit 40.6 % (37.0-47.0); Hemoglobin 12.2 g/dL (12.0-15.0); Mean Corpuscular Hemoglobin 26.2 pg (26-34); Mean Corpuscular Volume 87.3 fl (80-100); Mean Platelet Volume 10.1 fl (7.4-10.4); Platelet Count Result 301 k/mm3 (150-375); Red Blood Count 4.65 M/mm3 (4.2-5.4); Red Cell Distribution Width 17.2 % (11.5-14.5); White Blood Count 11.1 K/mm3 (4.5-10.0)
[2024-02-26 19:16] LABS: Iron 39 ug/dL (37-170)
[2024-02-26 19:25] LABS: Percent Iron Saturation 10 % (20-50)
[2024-02-26 19:30] LABS: Alanine Aminotransferase 12 U/L (6-35); Albumin Level 4.2 g/dL (3.5-5.1); Alkaline Phosphatase 79 U/L (38-126); Anion Gap 4 mmol/L (4-12); Aspartate Amino Transferase 27 U/L (14-36); Bilirubin,Total 0.5 mg/dL (0.2-1.3); Blood Urea Nitrogen 15 mg/dL (7-17); Calcium 8.9 mg/dL (8.4-10.2); Carbon Dioxide 30 mmol/L (22-30); Chloride 106 mmol/L (98-107); Cholesterol 192 mg/dL (0-200); Estimated Glomerular Filt Rate > 60; Glucose 95 mg/dL (65-110); HDL Direct 62 mg/dL; Potassium 3.8 mmol/L (3.4-5.0); Sodium 140 mmol/L (137-145); Triglycerides 109 mg/dL (<150)
[2024-02-26 19:42] LABS: LDL Cholesterol Direct 100 mg/dL
[2024-02-26 21:14] LABS: Hemoglobin A1C 5.9 % (<5.7)
== END 2024-02-26 13:57 | disposition home or self-care (01) ==
LOC: ANHGOSHLAB 13:57
PROVIDERS: PCP Family Medicine; Visit Provider Nurse Practitioner
DX: E55.9 Vitamin D deficiency, unspecified (principal); R73.03 Prediabetes; Z00.00 Encounter for general adult medical examination without abnormal findings; E53.8 Deficiency of other specified B group vitamins; E78.5 Hyperlipidemia, unspecified; I10 Essential (primary) hypertension; E61.1 Iron deficiency
CPT/HCPCS: 36415; 80053; 80061; 82306; 82607; 83036; 83540; 83550; 84443; 85027

== ENCOUNTER 2024-03-02 13:13 | Outpatient (CLI) | payer MEDICARE, SELFPAY ==
[2024-03-02 19:48] LABS: Hemoglobin 11.7 g/dL (12.0-15.0); Mean Corpuscular HGB Conc 30.8 g/dl (32-36); Mean Corpuscular Hemoglobin 26.5 pg (26-34); Mean Platelet Volume 9.8 fl (7.4-10.4); Platelet Count Result 273 k/mm3 (150-375); Red Blood Count 4.42 M/mm3 (4.2-5.4); Red Cell Distribution Width 16.9 % (11.5-14.5); White Blood Count 9.7 K/mm3 (4.5-10.0)
== END 2024-03-02 13:14 | disposition home or self-care (01) ==
PROVIDERS: PCP Family Medicine; Visit Provider Nurse Practitioner
DX: D72.829 Elevated white blood cell count, unspecified (principal)
CPT/HCPCS: 36415; 85027

== ENCOUNTER 2024-08-31 12:44 | Outpatient (CLI) | payer MEDICARE, SELFPAY ==
[2024-08-31 19:59] LABS: Basophils Absolute Auto 0.1 K/mm3 (0.0-0.1); Basophils Percent Auto 0.7 % (0.2-1.2); Eosinophils Absolute Auto 0.3 K/mm3 (0-0.3); Eosinophils Percent Auto 2.2 % (0-4.4); Hematocrit 38.2 % (37.0-47.0); Immature Granulocyte Absolute 0.05 K/mm3 (0.00-0.031); Immature Granulocyte Percent A 0.4 % (0-0.5); Lymphocytes Absolute Auto 1.52 K/mm3 (0.9-3.2); Lymphocytes Percent Auto 12.6 % (18.3-44.2); Mean Corpuscular HGB Conc 31.4 g/dl (32-36); Mean Corpuscular Hemoglobin 26.4 pg (26-34); Mean Platelet Volume 9.8 fl (7.4-10.4); Monocytes Absolute Auto 1.1 K/mm3 (0.1-0.6); Monocytes Percent Auto 9.1 % (2.6-8.5); Platelet Count Result 306 k/mm3 (150-375); Red Blood Count 4.55 M/mm3 (4.2-5.4); Red Cell Distribution Width 17.4 % (11.5-14.5); White Blood Count 12.1 K/mm3 (4.5-10.0)
[2024-08-31 20:35] LABS: Alanine Aminotransferase 11 U/L (6-35); Alkaline Phosphatase 81 U/L (38-126); Aspartate Amino Transferase 20 U/L (14-36); Bilirubin,Total 0.6 mg/dL (0.2-1.3); Blood Urea Nitrogen 10 mg/dL (7-17); Calcium 9.4 mg/dL (8.4-10.2); Carbon Dioxide 30 mmol/L (22-30); Cholesterol 177 mg/dL (0-200); Estimated Glomerular Filt Rate > 60; Glucose 105 mg/dL (65-110); HDL Direct 66 mg/dL; Triglycerides 89 mg/dL (<150)
[2024-08-31 20:41] LABS: LDL Cholesterol Direct 77 mg/dL
[2024-08-31 22:42] LABS: Vitamin D 25 Hydroxy 34.9 ng/mL
[2024-08-31 22:55] LABS: Thyroid Stimulating Hormone Reflex 0.354 uIU/mL (0.465-4.68)
[2024-09-01 00:01] LABS: Free T4 Free Thyroxine Reflex 1.37 ng/dL (0.78-2.19)
[2024-09-01 04:50] LABS: Hemoglobin A1C 6.1 % (<5.7)
[2024-09-01 06:05] LABS: Anion Gap 9 mmol/L (4-12); Chloride 101 mmol/L (98-107); Potassium 4.1 mmol/L (3.4-5.0); Sodium 140 mmol/L (137-145)
[2024-09-01 09:33] LABS: Total Triiodothyronine (T3) 1.15 NG/ML (0.97-1.69)
== END 2024-08-31 12:45 | disposition home or self-care (01) ==
PROVIDERS: PCP Family Medicine; Visit Provider Family Medicine
DX: E78.5 Hyperlipidemia, unspecified (principal); I10 Essential (primary) hypertension; E55.9 Vitamin D deficiency, unspecified; R73.03 Prediabetes; J44.9 Chronic obstructive pulmonary disease, unspecified; E53.8 Deficiency of other specified B group vitamins
CPT/HCPCS: 36415; 80053; 80061; 82306; 82607; 83036; 84439; 84443; 84480; 85025

== ENCOUNTER 2024-09-28 14:38 | Outpatient (RCR) | payer MEDICARE, SELFPAY ==
--- NOTE | 2024-09-28 15:44 | PTOPEVAL1 ---
Assessment and note entered by Benjy Marie, PT, DPT Evaluation Information Assessment Status Evaluation Diagnosis unsteadiness on feet, repeated falls Subjective Information Pt states she has some spinal cord compression affecting her RLE for the last ~5 years. She states she is moving in with her son soon and needs to be able to do the stairs. She reports no falls in the last year. Pt uses a WW and has been for several years. 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 Pt demonstrates decreased LE strength ceci, gait deviations, and decreased static standing balance. Pt relies heavily on her UE support for functional mobility. Her scores on the Tinetti, 2 min walk test, and 5xSTS all place her at an increased risk for falls. Skilled therapy services are indicated to address the deficits noted above , to improve LE strength, and to minimize fall risk. Plan of Care Interventions Electrical Stimulation,Gait Training,Hot Pack/Cold Pack,Manual Therapy,Neuro Re-education,Patient/ Caregiver Education,Therapeutic Activities, Therapeutic Exercise PT Services Indicated Yes Treatment Frequency and 2x/wk for 10 visits Duration These treatments will address the objective and functional deficits as defined above. The patient will be advanced safely and appropriately in order for the patient to progress towards his/her prior level of function. Additional exercises will be introduced and as well as a comprehensive home exercise program upon discharge, if needed, ?to ensure carryover of functional gains achieved in the clinic. This treatment plan has been reviewed and agreement upon by the patient.
--- NOTE | 2024-09-28 15:44 | OPREHPOC ---
Outpatient Therapy Plan of Care This is a Multidisciplinary Plan of Care that may contain components documented by all disciplines (PT, OT, and ST.) PT Problem 1 PT Problem #1 Knowledge Deficit PT Goal 1 Goal / Goal Update 1. Pt to be IND with issued HEP PT Problem 2 PT Problem #2 Impaired Gait PT Goal 1 Goal / Goal Update 1. Pt to improve 2 min walking distance from 140ft to 200ft 2. Pt to demonstrate R foot clearance 90% of the time. Target Visit 10 PT Problem 3 PT Problem #3 Impaired Strength PT Goal 1 Goal / Goal Update 1. Pt to improve 5xSTS time from 34s to 15s with UE support
--- NOTE | 2024-10-21 14:25 | PCPTNOTE ---
Patient called to cancel due to weather for therapy appointments on 10/21/24 and 10/23/24.
--- NOTE | 2024-10-23 08:13 | PCPTNOTE ---
Patient called to cancel all appointments stating she has been doing her home exercises and does not like to get out with the weather. Patient said she would call back with an update of how shes doing.
--- NOTE | 2024-11-03 13:18 | PTOPDC ---
Assessment and note entered by Benjy Marie, PT, DPT Evaluation Information Assessment Status Discharge - Pt Not Present Diagnosis unsteadiness on feet, repeated falls Subjective Information Pt initially cancelled all of her treatments after she was evaluated, states she is doing well and does not need therapy. Called and spoke with pt to follow up, states she is still doing her exercises and does not have any interest of coming back to therapy. Recommended fitness classes at [facility], gym, ect., pt states she will not do those. Assessment PT Clinical Summary Pt was evaluated on 09/28/24 and did not complete any follow up visits. She will be discharged at this time per her request.
== END 2024-11-03 15:23 | disposition home or self-care (01) ==
LOC: ANHGOSHPT 14:38
PROVIDERS: PCP Family Medicine; Visit Provider Family Medicine
DX: R29.6 Repeated falls (principal); R26.81 Unsteadiness on feet; R29.898 Other symptoms and signs involving the musculoskeletal system
CPT/HCPCS: 97110; 97161; 97530

== ENCOUNTER 2024-11-04 10:21 | Outpatient (CLI) | payer MEDICARE, SELFPAY ==
[2024-11-04 19:32] LABS: Basophils Absolute Auto 0.1 K/mm3 (0.0-0.1); Basophils Percent Auto 0.7 % (0.2-1.2); Eosinophils Absolute Auto 0.3 K/mm3 (0-0.3); Eosinophils Percent Auto 3.5 % (0-4.4); Hematocrit 36.2 % (37.0-47.0); Hemoglobin 10.7 g/dL (12.0-15.0); Immature Granulocyte Absolute 0.02 K/mm3 (0.00-0.031); Immature Granulocyte Percent A 0.2 % (0-0.5); Lymphocytes Absolute Auto 1.48 K/mm3 (0.9-3.2); Lymphocytes Percent Auto 17.6 % (18.3-44.2); Mean Corpuscular HGB Conc 29.6 g/dl (32-36); Mean Corpuscular Hemoglobin 24.4 pg (26-34); Mean Corpuscular Volume 82.5 fl (80-100); Mean Platelet Volume 9.5 fl (7.4-10.4); Monocytes Absolute Auto 0.8 K/mm3 (0.1-0.6); Monocytes Percent Auto 9.2 % (2.6-8.5); Neutrophils Absolute Auto 5.8 K/mm3 (1.3-6.7); Neutrophils Percent Auto 68.8 % (45.5-73.1); Platelet Count Result 249 k/mm3 (150-375); Red Blood Count 4.39 M/mm3 (4.2-5.4); Red Cell Distribution Width 17.2 % (11.5-14.5); White Blood Count 8.4 K/mm3 (4.5-10.0)
[2024-11-04 20:04] LABS: Alanine Aminotransferase 10 U/L (6-35); Albumin Level 3.8 g/dL (3.5-5.1); Alkaline Phosphatase 81 U/L (38-126); Anion Gap 9 mmol/L (4-12); Aspartate Amino Transferase 21 U/L (14-36); Bilirubin,Total 0.6 mg/dL (0.2-1.3); Blood Urea Nitrogen 11 mg/dL (7-17); Calcium 9.1 mg/dL (8.4-10.2); Carbon Dioxide 30 mmol/L (22-30); Chloride 101 mmol/L (98-107); Cholesterol 175 mg/dL (0-200); Estimated Glomerular Filt Rate > 60; Glucose 91 mg/dL (65-110); HDL Direct 58 mg/dL; Hypochromasia 1+; Platelet Estimate Adequate (Adequate); Potassium 3.9 mmol/L (3.4-5.0); Schistocytes None Seen; Sodium 140 mmol/L (137-145); Triglycerides 95 mg/dL (<150)
[2024-11-04 20:16] LABS: LDL Cholesterol Direct 88 mg/dL
[2024-11-04 20:58] LABS: Vitamin D 25 Hydroxy 40.7 ng/mL
[2024-11-04 21:12] LABS: Thyroid Stimulating Hormone Reflex 0.858 uIU/mL (0.465-4.68)
== END 2024-11-04 10:22 | disposition home or self-care (01) ==
LOC: ANHGOSHLAB 10:23
PROVIDERS: PCP Family Medicine; Visit Provider Family Medicine
DX: I10 Essential (primary) hypertension (principal); E55.9 Vitamin D deficiency, unspecified; J44.9 Chronic obstructive pulmonary disease, unspecified; Z00.00 Encounter for general adult medical examination without abnormal findings; R73.03 Prediabetes; E78.5 Hyperlipidemia, unspecified; E53.8 Deficiency of other specified B group vitamins
CPT/HCPCS: 36415; 80053; 80061; 82306; 82607; 83036; 84443; 85025

== ENCOUNTER 2024-11-20 10:13 | Outpatient (CLI) | payer MEDICARE, SELFPAY ==
--- NOTE | ~2024-11-20 | CT_ITS ---
Clinical indication:COPD COMPARISON:None TECHNIQUE: Multiple contiguous axial images of the chest were performed following the administration of intravenous contrast. FINDINGS: LUNG:Panlobular emphysematous disease is identified. Bibasilar pleural thickening (right greater than left) with adjacent compressive atelectasis. The remainder of the lungs are clear. MEDIASTINUM:No significant mediastinal lymphadenopathy is appreciated. HEART:The heart is enlarged, without pericardial effusion. SOFT TISSUES OF THE CHEST: Examination is limited secondary to the lack of body fat. BONES OF THE CHEST: Sternal wires and mediastinal clips are identified the wires are midline and inta ct. No acute rib fractures. No acute compression fractures. VISUALIZED PORTION OF THE UPPER ABDOMEN: The gallbladder is surgically absent. IMPRESSION: Panlobular emphysematous disease with bibasilar pleural thickening with adjacent compressive atelecta sis. Panlobular emphysema is also noted. Reviewed, dictated and finalized at location A. SPRING STRIP INSPECTOR IMPRESSION: Panlobular emphysematous disease with bibasilar pleural thickening with adjacen t compressive atelectasis. Panlobular emphysema is also noted.
--- OUTSIDE RECORDS SUMMARY | 2024-11-20 10:58 | XMS_ITS | Clinical Summary ---
Author Organization [facility] Address [address], [facility] [address] [place] [address] Phone Care Team Providers Care Tableau Lead Name Role Phone Jessie Acosta MD Primary Care Provider Moose Miller MD Unavailable [phone] Allergies Active Allergy Reactions Criticality Noted Date Comments Penicillins Anaphylaxis,Rash High 12/02/2017 Medications Fluticasone Furoate-Vilante rol (BREO ELLIPTA IN) take 1 Puff by inhalation daily. Active zolpidem (AMBIEN) 10 MG TabletIndicatio ns:takes one or one half Take 10 mg by mouth nightly as needed for Sleep. Indications: takes one or one half Active Fosinopril Sodium 40 MG Tablet Take 40 mg by mouth daily. Active esomeprazole (NexIUM) 40 MG Pack Take 40 mg by mouth daily as needed for Other (reflux). Active Probiotic Product (PROBIOTIC FORMULA PO) Take 1 Tab by mouth daily. Active IRON PO Take by mouth daily. Active albuterol (PROVENTIL HFA, VENTOLIN HFA) 108 (90 Base) MCG/ACT Aerosol Solution take 2 Puffs by inhalation every 4 hours as needed for Wheezing. Active oxybutynin (DITROPAN-XL) 10 MG TABLET SR 24 HR Take 10 mg by mouth daily. Active cyanocobalamin (VITAMIN B-12) 1000 MCG/ML Solution every 30 days. 2 8 Active chlorthalidone (HYGROTON) 50 MG Tablet Take 50 mg by mouth daily. Active levETIRAcetam (KEPPRA) 250 MG Tablet Take 250 mg by mouth. Active Melatonin 1 MG Tablet Take 10 mg by mouth nightly as needed. Active acetaminophen (TYLENOL) 500 MG Tablet Take 1,000 mg by mouth every 6 hours as needed for Mild or more severe pain. Active atorvastatin (LIPITOR) 20 MG Tablet TAKE 1 TABLET BY MOUTH AT NIGHT 1 Active lisinopril (PRINIVIL, ZESTRIL) 5 MG Tablet Take 5 mg by mouth daily. 1 Active aspirin 81 MG Chewable Tablet Take 81 mg by mouth daily. Active Cholecalciferol (VITAMIN D-3 PO) Take 5,000 mg of elemental calcium by mouth daily. Active Cyanocobalamin (B-12 PO) Take 1,000 mg by mouth. Every other day Active Family History Medical History Relation Name Comments Stroke Father Diabetes Mother Heart Attack Mother Breast Cancer Sister Colon Cancer Sister Diabetes Sister Relation Name Status Comments Father Mother Sister Social History Tobacco Use Types Packs/Day Years Used Date Smoking Tobacco: Former Cigarettes 2 30 0 12/02/1957 - 12/02/1987 Smokeless Tobacco: Never Tobacco Cessation:Counseling Given: Not Answered Comments:Quit 30 years ago Alcohol Use Standard Drinks/Week Comments Yes 0 (1 standard drink = 0.6 oz pur e alcohol) 1 beer monthly Comments No Sex and Gender Information Value Date Recorded Sex Assigned at Not on file Legal Sex Female 10:37 PM CDT Gender Identity Not on file Sexual Orientation Not on file 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 Industry 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 Job 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 Date 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 Not on file Not on file Last Filed Vital Signs Vital Sign Reading Time Taken Comments Blood Pressure 128/70 07/18/2023 2:34 PM CDT Pulse 102 07/18/2023 2:34 PM CDT Temperature 36.2 C (97.2 F) 07/18/2023 2:34 PM CDT Respiratory Rate 17 07/18/2023 2:34 PM CDT Oxygen Saturation 87% 07/18/2023 2:3 4 PM CDT Inhaled Oxygen Concentration - - Weight 61.9 kg (136 lb 8 oz) 07/18/2023 2:34 PM CDT BMI incorrect due to technical error Height 157.5 cm (5' 2 ) 07/18/2023 2:34 PM CDT BMI incorrect due to technical error Body Mass Index 24.97 07/18/2023 2:34 PM CDT Plan of Treatment Health Maintenance Due Date Last Done Comments DEXA Bone Density 1940 Hepatitis C Virus (HCV) Screening 1940 TdaP Immunization 1940 Respiratory Syncytial Virus (RSV) Immunization (Adult) (1 - 1-dose 75+ series) 2016 Zoster Immunization (2 of 2) 07/29/2018 06/03/2018 Influenza Immunization (#1) 06/14/202406/14, 07/24/2021, 06/28/2020, Additional history exists SARS-COV-2 Immunization ( season) 2024 06/27/2022, 01/23/2022, 08/08/2021, Additional history exists Pneumococcal Immunization (50+ years) Completed 07/17/2015, 07/26/2008 Pneumococcal Immunization Combined Discontinued 07/17/2015, 07/26/2008 DTaP/Tdap/Td Immunization Discontinued 10/14/2016, Hepatitis B Immunization Aged Out No longer eligible based on patient's age to complete this topic Meningococcal Immunization (ACWY) Aged Out No longer eligible based on patient's age to complete this topic Rotavirus Immunization Aged Out No lo nger eligible based on patient's age to complete this topic [facility] [place] [id number] Advance Directives * Full Code (Latest Code Status on File) Date Activated Date Inactivated Comments 02/06/2022 11:05 AM Care Teams Tableau Lead Relationship Specialty Start Date End Date Jessie Acosta MD PCP - General Family Medicine 12/05/17 Moose Miller MD [address] [place] [address] Consulting Physician Neurology 08/17/22
--- OUTSIDE RECORDS SUMMARY | 2024-11-20 10:58 | XMS_ITS | Encounter Summary ---
Author Organization [facility] Address [address] [facility] [address] [place] [address] Care Team Providers Care Photography Coordinator Name Role Phone Benjamin Soto Primary Care Provider [phone] Jessie Acosta MD Primary Care Provider Greg Brandon DO Unavailable [phone] Encounter Details Date Type Department Care Team (Late st Contact Info) Description 11/19/2016 Orders Only [facility] ProviderPresley MD [address] [place] [address] Social History Tobacco Use Types Packs/Day Years Used Date Smoking Tobacco: Never Assessed Comments Unknown Sex and Gender Information Value Date Recorded Sex Assigned at Not on file Legal Sex Female 9:43 AM BRUSHER TENDER Gender Identity Not on file Sexual Orientation Not on file documented as of this encounter Plan of Treatment Not on file documented as of this encounter Procedures Procedure Name Priority Date/Time Associated Diagnosis Comments CARDIOLOGY REPORT 11/19/2016 documented in this encounter Results * CARDIOLOGY REPORT (11/19/2016) Anatomical Region Laterality Modality Other Narrative 11/19/2016 Ordered by an unspecified provider. Historical Provider [facility] Final Result documented in this encounter Visit Diagnoses Not on filedocumented in this encounter Care Teams Photography Coordinator Relationship Specialty Start Date End Date Benjamin Soto [address] [place] [address] PCP - General 11/19/16 09/02/18 Jessie Acosta MD [address] [place] [address] [place] [address] PCP - General Family Practice 09/03/18 Greg Brandon DO [address] [place] [address] Medical Oncologist/Hematologis t Hematology and Oncology 06/03/19 documented as of this encounter
--- OUTSIDE RECORDS SUMMARY | 2024-11-20 10:58 | XMS_ITS | Clinical Summary ---
Author Organization [facility] [address] Address [address] [place] [address] Care Team Providers Care Ring Attacher Name Role Phone Jessie Acosta MD Primary Care Provider Greg Brandon DO Unavailable [phone] Allergies Active Allergy Reactions Criticality Noted Date Comments Penicillin G Rash Medium 09/10/2018 Penicillins Anaphylaxis,Rash High 12/02/2017 Medications Lactobac no.41-Bifidobac t no.7 70 mg (3 billion cell) capsule Take 1 tablet by mouth daily. Active zolpidem (AMBIEN) 10 mg tabletIndicatio ns:Sleep-Onset Insomnia Take 0.5-1 tablets (5-10 mg total) by mouth nightly as needed Active cyanocobalamin (Vitamin B-12) 1,000 mcg/mL injection Inject 1 mL (1,000 mcg total) into the muscle as instructed every 30 (thirty) days 8 Active albuterol HFA (PROVENTIL HFA,VENTOLIN HFA,PROAIR HFA) 90 mcg/actuation inhaler Inhale 1 puff every 4 (four) hours as needed Active fluticasone furoate-vilante roL (BREO ELLIPTA) 200-25 mcg/dose diskus inhaler Inhale 1 puff daily [address] (NexIUM) 20 mg capsule Take 2 capsules (40 mg total) by mouth daily before breakfast Active aspirin 81 mg enteric coated tablet Take 1 tablet (81 mg total) by mouth daily 30 tablet 11 9 Active docusate sodium (COLACE) 100 mg capsuleIndicati ons:constipatio n Take 1 capsule (100 mg total) by mouth 2 (two) times a day 9 Active Additional Information Patient not taking.Reported on 02/03/2024 acetaminophen (TYLENOL) 500 mg tablet Take 1 tablet (500 mg total) by mouth every 6 (six) hours as needed for pain Active cetirizine (ZyrTEC) 10 mg tablet Take 1 tablet (10 mg total) by mouth daily Active cholecalciferol (VITAMIN D-3) 50,000 unit capsule TAKE 1 CAPSULE BY MOUTH WEEKLY 0 Active lisinopriL (PRINIVIL,ZESTR [place]) 5 mg tablet 1 Active loperamide (IMODIUM) 2 mg capsule Take 1 capsule (2 mg total) by mouth 4 (four) times a day as needed for diarrhea Active Active Problems Problem Noted Date Diagnosed Date Palpitations 11/30/2019 Encounter for management of implanted device 02/2019 Postprocedural hypotension 06/01/2019 Chronic diastolic heart failure 06/01/2019 Postoperative atrial fibrillation (CMS/HCC) 05/14 S/P AVR 06/01/2019 Iron deficiency anemia 05/27/2019 Nonrheumatic aortic valve stenosis 11/17/2018 Labile hypertension 11/17/2018 COPD (chronic obstructive pulmonary disease) 01/2019 Encounter for other preprocedural examination Resolved Problems Problem Noted Date Diagnosed Date Resolved Date Idiopathic hypotension 11/30/201901/07 Aortic valve stenosis 04/23/20192021 Overview (04/23/2019): Added automatically from request for surgery [id number] Dyspnea on exertion 11/17/2018 01/08/20 22 Immunizations Name Administration Dates Next Due Influenza, Quadrivalent, Hig h Dose, Preservative Free, Intrr 06/28/2020 Influenza, Unspecified 06/14/2018 Moderna SARS-CoV-2 Monovalent Vaccination (12+ Y RS) 12/13/2020,11/10/2020 Pneumococcal Conjugate PCV 13 07/19/2015 Pneumococcal Polysaccharide PPV23 07/26/2008 Td, adsorbed 10/14/2016,11/05/2014 ZOSTER Recombinant 06/04/2018 Surgical History Surgery Date Site/Laterality Comments CHOLECYSTECTOMY APPENDECTOMY BRAIN SURGERY 10/14/2000 - 10/13/2001 for benign tumor TUBAL LIGATION COLONOSCOPY COLECTOMY colon resection d/t large polyps Medical History Medical History Date Comments Hypertension COPD (chronic obstructive pulmonary disease) (HC C) Aortic stenosis Heart murmur Cataract Syncope Dyspnea on exertion Vertigo GERD (gastroesophageal reflux disease) Irritable bowel syndrome Anemia History of transfusion 03/14/2019 Depression Anxiety 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 Family History Medical History Relation Name Comments Hypertension Father Stroke Father Diabetes Mother Heart failure Mother Hypertension Mother Relation Name Status Comments Father Mother Social History Tobacco Use Types Packs/Day Years Used Date Smoking Tobacco: Former Cigarettes 2 25 1 962 - 1986 Smokeless Tobacco: Never Tobacco Cessation:Counseling Given: Not Answered Alcohol Use Standard Drinks/Week Comments Yes 0 (1 standard drink = 0.6 oz pur e alcohol) social drinker Comments Unknown Sex and Gender Information Value Date Recorded Sex Assigned at Not on file Legal Sex Female 9:43 AM CCO & PRESIDENT Gender Identity Not on file Sexual Orientation Not on file 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 Not on file Not on fi le Obstetrics History Last Filed Vital Signs Vital Sign Reading Time Taken Comments Blood Pressure 120/64 02/03/2024 9:59 AM CDT Pulse 77 02/03/2024 9:59 AM CDT Temperature 36.4 C (97.6 F) 11/09/2019 1:33 PM CCO & PRESIDENT Respiratory Rate 16 11/02/2019 10:52 AM CCO & PRESIDENT Oxygen Saturation 92% 02/03/2024 9:59 AM CDT Inhaled Oxygen Concentration - - Weight 55.8 kg (123 lb) 02/03/2024 9:59 AM CDT Height 160 cm (5' 3 ) 02/03/2024 9:59 AM CDT Body Mass Index 21.79 02/03/2024 9:59 AM CDT Plan of Treatment Health Maintenance Due Date Last Done Comments Depression Screening 1941 Fall Risk Assessment 1941 Osteoporosis Screening-Bone Density Scan 1941 Hepatitis B Screening 1959 Well Visit 65+ 2006 DTaP/Tdap/Td Vaccine (1 - Tdap) 10/15/2016 7, 11/05/2014 Zoster Vaccine (2 of 2) 07/30/2018 06/04/2018 Covid-19 Vaccine ( season) 06/14/202411/2020, 11/10/2020 Influenza Vaccine (#1) 2024 06/28/2020, 2017 Pneumococcal vaccine 65+ Completed 07/19/2015, 07/14 Medical Devices Implanted Type Area Small Arms Repairer Device Identifier Shelf Expiration Date Model / Serial / Lot Bob [employer] [id number] Inspiris Resilia Leaflet Sewing Ring 21mm Valve Aortic Bovine - [id number] - [id number] Implanted:Qty: 1 on 05/01/2019 by Doc Schneider MD at [facility] N/A: Heart Bob [employer] 11/04/2020 [id number] / [id number] / Kls-Alfonso Lp -- Drill-Free; Maxdrive Od2.3 Mm L11 Mm Self Retaining; Lock Sternal - [id number] Implanted:Qty: 4 on 05/01/2019 by Doc Schneider MD at [facility] N/A: Sternum Kls-Alfonso Lp -11 / / s-Alfonso Lp 025-48 Titanium 1.8mm 4 Hole Sternal Straight Plate Bone Midline - [id number] Implanted:Qty: 1 on 05/01/2019 by Doc Schneider MD at [facility] N/A: Sternum Kls[employer]Alfonso Lp [id number] / / [place] [address] MEDICARE [employer] MEDICARE [facility] MEDICARE SUPPLEMENT INSURANCE MEDICARE SOLUTIONS Advance Directives For more information, please contact: [phone] * Full Code (Latest Code Status on File) Date Activated Date Inactivated Comments 05/01/2019 3:47 PM 05/07/2019 7:53 PM Care Teams Ring Attacher Relationship Specialty Start Date End Date Jessie Acosta MD PCP - General Family Practice 09/03/18 Greg Brandon DO [address] [place] [address] Medical Oncologist/Wooden Barrel Mechanic Hematology and Oncology 06/03/19
--- OUTSIDE RECORDS SUMMARY | 2024-11-20 10:58 | XMS_ITS | Referral Summary ---
Author Organization [facility] Address [address] [facility] [place] [address] Care Team Providers Care Cullet Trucker Name Role Phone Jessie Acosta MD Primary Care Provider Source Comments [facility],non-owned Affiliates and Associated Physician Practices is amultiple site organization consisting of ambulatory clinics and hospital sitesin [place], [place], [place] and [place]. This disclosure is being madepursuant to the Care Everywhere program and may not contain all information available regarding this patient. Last updated 18.[facility] Allergies Active Allergy Reactions Criticality Noted Date Comments Penicillin G Rash Medium 09/10/2018 Penicillins Rash Medium 12/02/2017 Medications * Be aware that medications may not be up to date on this document. Alwaysverify current medications with the patient. Medication Sig Dispensed Refills Start Date End Date Status esomeprazole (NEXIUM) 40 MG capsule Take 40 mg by mouth daily before breakfast Activ e Probiotic Product (PROBIOTIC DAILY PO) Active ferrous sulfate 325 (65 FE) MG tablet Take 325 mg by mouth daily with food Active melatonin 1 MG tablet Take 1 mg by mouth at bedtime Active zolpidem (AMBIEN) 10 MG tablet Take 10 mg by mouth nightly as needed Active oxybutynin CR 24hr (DITROPAN-XL) 10 MG tablet Take 10 mg by mouth once daily Active chlorthalidone (HYGROTON) 25 MG tablet Take 25 mg by mouth once daily Active fosinopril (MONOPRIL) 40 MG tablet Take 40 mg by mouth once daily Active cyanocobalamin (VITAMIN B-12) 0.01 MCG/ML injection Inject subcutaneously once Active fluticasone-vilant monse (BREO ELLIPTA) 200-25 MCG/INH inhaler Inhale 1 puff by mouth once daily Active albuterol HFA (PROVENTIL;VENTOLI N;PROAIR) 108 (90 Base) MCG/ACT inhaler Inhale 2 puffs by mouth every 6 hours as needed Active levETIRAcetam (KEPPRA) 250 MG tablet Take 250 mg by mouth every 12 hours as needed Active Active Problems Problem Noted Date Diagnosed Date Meningioma 03/31/2019 Social History Tobacco Use Types Packs/Day Years Used Date Smoking Tobacco: Former Cigarettes 2 30 Smokeless Tobacco: Never Tobacco Cessation:Counseling Given: No Alcohol Use Standard Drinks/Week Comments Yes 0 (1 standard drink = 0.6 oz pur e alcohol) 1-2 DRINKS A MONTH Sex and Gender Information Value Date Recorded Sex Assigned at Not on file Gender Identity Not on file Sexual Orientation Not on file Last Filed Vital Signs Vital Sign Reading Time Taken Comments Blood Pressure 96/50 03/31/2019 1:50 PM CDT Q Pulse 67 03/31/2019 1:50 PM CDT Temperature 36.8 C (98.3 F) 03/31/2019 1:50 PM CDT Respiratory Rate - - Oxygen Saturation - - Inhaled Oxygen Concentration - - Weight 83.9 kg (185 lb) 03/31/2019 1:50 PM CDT Height 160 cm (5' 3 ) 03/31/2019 1:50 PM CDT Body Mass Index 32.77 03/31/2019 1:50 PM CDT Plan of Treatment Not on file Care Teams Cullet Trucker Relationship Specialty Start Date End Date Jessie Acosta MD [address] [place] [address] PCP - General 03/31/19
--- OUTSIDE RECORDS SUMMARY | 2024-11-20 10:58 | XMS_ITS | Clinical Summary ---
Author Organization [facility] Address [address] [facility] [place] [address] Care Team Providers Care Dragsaw Operator Name Role Phone Jessie Acosta MD Primary Care Provider Source Comments [facility],non-owned Affiliates and Associated Physician Practices is amultiple site organization consisting of ambulatory clinics and hospital sitesin [place], [place], [place] and [place]. This disclosure is being madepursuant to the Care Everywhere program and may not contain all information available regarding this patient. Last updated 18.[facility] Allergies Active Allergy Reactions Criticality Noted Date [...] Problem Noted Date Diagnosed Date Meningioma 03/31/2019 Family History Relation Name Status Comments Father Mother Social [...] 03/31/2019 1:50 PM CDT Plan of Treatment Health Maintenance Due Date Last Done Comments BONE DENSITY TESTING 1940 MEDICARE AWV 12 MONTHS 1940 DTAP/TDAP/TD VACCINES (1 - Tdap) 1960 PNEUMOCOCCAL VACCINE 50+ (1 of 1 - PCV) 1991 ZOSTER VACCINE (1 of 2) 1991 Respiratory Syncytial Virus (RSV) Vaccine Pt: or over 60 yrs (1 - 1-dose 75+ series) 2016 COVID-19 VACCINE ( - 2023-2 5 season) 2024 INFLUENZA VACCINE (#1) 2024 DEPRESSION SCREENING 10/14/2024 HEPATITIS B VACCINE Aged Out No longe r eligible based on patient's age to complete this topic HIB VACCINE Aged Out No longer eligi ble based on patient's age to complete this topic HPV VACCINE Aged Out No longer eligi ble based on patient's age to complete this topic MENINGOCOCCAL (Group B) VACCINE Aged Out No longer eligible based on patient's age to complete this topic MENINGOCOCCAL VACCINE Aged Out No gely tonya eligible based on patient's age to complete this topic Care Teams Dragsaw Operator Relationship Specialty Start Date End Date Jessie Acosta MD [address] [place] [id number] PCP - General 03/31/19
--- OUTSIDE RECORDS SUMMARY | 2024-11-20 10:58 | XMS_ITS | Patient Health Summary ---
Author Organization [facility] Address [address] [place] [address] Care Team Providers Care Biological Sciences Instructor Name Role Phone Jessie Acosta MD Primary Care Provider Note from [facility],non-owned Affiliates and Associated Physician Practices is amultiple site organization consisting of ambulatory clinics and hospital sitesin [place], [place], [place] and [place]. This disclosure is being madepursuant to the Care Everywhere program and may not contain all information available regarding this patient. Last updated 18.[facility] Allergies * Penicillin G(Rash) -Medium Criticality * Penicillins(Rash) -Medium Criticality Medications * Be aware that medications may not be up to date on this document. Alwaysverify current medications with the patient. * esomeprazole (NEXIUM) 40 MG capsule Take 40 mg by mouth daily before breakfast * Probiotic Product (PROBIOTIC DAILY PO) * ferrous sulfate 325 (65 FE) MG tablet Take 325 mg by mouth daily with food * melatonin 1 MG tablet Take 1 mg by mouth at bedtime * zolpidem (AMBIEN) 10 MG tablet Take 10 mg by mouth nightly as needed * oxybutynin CR 24hr (DITROPAN-XL) 10 MG tablet Take 10 mg by mouth once daily * chlorthalidone (HYGROTON) 25 MG tablet Take 25 mg by mouth once daily * fosinopril (MONOPRIL) 40 MG tablet Take 40 mg by mouth once daily * cyanocobalamin (VITAMIN B-12) 0.01 MCG/ML injection Inject subcutaneously once * fluticasone-vilanterol (BREO ELLIPTA) 200-25 MCG/INH inhaler Inhale 1 puff by mouth once daily * albuterol HFA (PROVENTIL;VENTOLIN;PROAIR) 108 (90 Base) MCG/ACT inhaler Inhale 2 puffs by mouth every 6 hours as needed * levETIRAcetam (KEPPRA) 250 MG tablet Take 250 mg by mouth every 12 hours as needed Active Problems Problem Noted Date Diagnosed Date [...] Mass Index 32.77 03/31/2019 1:50 PM CDT Procedures * GROSS + MICRO EXAM(Performed 07/31/2001) Results * GROSS + MICRO EXAM (07/31/2001 12:17 PM CDT) Result CASE NUMBER [id number] Comment: ORDERING PHYSICIAN COTY MANDUJANO SPECIMEN TYPE Brain Mass Date 07/31/2001 Physician Zaira Mandujano Gross Description The specimen is received in a formalin-filled container labeled with the patient's name and brain tumor . The tissue consists of a nodular well-circumscribed and encapsulated mass attached to a pink membranous tissue that is consistent with meninges. The nodular lesion measures 2.5 x 2 x 1.5 cm. The tissue is serially sectioned and livestock sales representative portions are submitted in a single cassette. AE/bk Microscopic Exam The brain tumor sections show a round well circumscribed mass of whorled bundles of small innocuous appearing spindle cells attached to the dura and with multiple psammomatous calcifications. 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 No malignant features are seen. Correlation with clinical history and radiologic appearance is suggested. Ab/ Diagnosis I. Brain tumor , resection A. Histologic features consistent with meningioma. Ab Document Control Associate [facility] Pathologist Alfredo Henson M.D. [place]. 08/01/2001 1224 <1> CPT code 29900 MISCELLANEOUS SAMPLES / Unknown 07/31/2001 12:17 PM CDT 07/31/2001 12:17 PM CDT Historical Provider LAB - PATHOLOGY/C YTOLOGY ORDERABLES Care Teams Biological Sciences Instructor Relationship Specialty Start Date End Date Jessie Acosta MD [address] [place] [phone] PCP - General 03/31/19
--- OUTSIDE RECORDS SUMMARY | 2024-11-20 10:59 | XMS_ITS | Referral Summary ---
Author Organization [facility] [address] Address [address] [place] [address] Care Team Providers Care Qa Architect Name Role Phone Jessie Acosta MD Primary Care Provider Greg Brandon DO Unavailable [phone] Allergies Active Allergy Reactions Criticality Noted Date [...] (04/23/2019): Added automatically from request for surgery [id number] Dyspnea on exertion 11/17/2018 01/08/20 22 Immunizations Name Administration Dates Next Due Influenza, Quadrivalent, Hig h Dose, Preservative Free, Intrr 06/28/2020 Influenza, Unspecified 06/14/2018 Moderna SARS-CoV-2 Monovalent Vaccination (12+ Y RS) 12/13/2020,11/10/2020 Pneumococcal Conjugate PCV 13 07/19/2015 Pneumococcal Polysaccharide PPV23 07/26/2008 Td, adsorbed 10/14/2016,11/05/2014 ZOSTER Recombinant 06/04/2018 Social History Tobacco Use Types Packs/Day Years [...] on file Legal Sex Female 9:43 AM CHIEF GROWTH OFFICER Gender Identity Not on file Sexual Orientation Not on file Occupation Industry 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 Job End Date 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 Not on file Not on fi le Last Filed Vital Signs Vital Sign Reading Time Taken Comments Blood Pressure 120/64 02/03/2024 9:59 AM CDT Pulse 77 02/03/2024 9:59 AM CDT Temperature 36.4 C (97.6 F) 11/09/2019 1:33 PM CHIEF GROWTH OFFICER Respiratory Rate 16 11/02/2019 10:52 AM CHIEF GROWTH OFFICER Oxygen Saturation 92% 02/03/2024 9:59 AM CDT Inhaled Oxygen Concentration - - Weight 55.8 kg (123 lb) 02/03/2024 9:59 AM CDT Height 160 cm (5' 3 ) 02/03/2024 9:59 AM CDT Body Mass Index 21.79 02/03/2024 9:59 AM CDT Plan of Treatment Not on file Medical Devices Implanted Type Area Keno Writer/Runner Device Identifier Shelf Expiration Date Model / Serial / Lot Bob Lifesciences [id number] Inspiris Resilia Leaflet Sewing Ring 21mm Valve Aortic Bovine - [id number] - [id number] Implanted:Qty: 1 on 05/01/2019 by Doc Schneider MD at [facility] N/A: Heart Bob [employer]iences 11/04/2020 [id number] / [id number] / [facility] --11 Drill-Free; Maxdrive Od2.3 Mm L11 Mm Self Retaining; Lock Sternal - [id number] Implanted:Qty: 4 on 05/01/2019 by Doc Schneider MD at [facility] N/A: Sternum [facility] 24-023-11 / / [facility] 24-025-48 Titanium 1.8mm 4 Hole Sternal Straight Plate Bone Midline - [id number] Implanted:Qty: 1 on 05/01/2019 by Doc Schneider MD at [facility] N/A: Omi HurtadoAlfonso 24-025-48 / / Insurance MEDICARE [employer] MEDICARE [employer] MEDICARE CIGNA MEDICARE SUPPLEMENT INSURANCE MEDICARE SOLUTIONS Advance Directives For more information, please contact: [phone] * Full Code (Latest Code Status on File) Date Activated Date Inactivated Comments 05/01/2019 3:47 PM 05/07/2019 7:53 PM Care Teams Qa Architect Relationship Specialty Start Date End Date Jessie Acosta MD PCP - General Family Practice 09/03/18 Greg Brandon DO [address] [place] [address] Medical Oncologist/[place] Hematology and Oncology 06/03/19
== END 2024-11-20 10:14 | disposition home or self-care (01) ==
PROVIDERS: PCP Family Medicine; Visit Provider Family Medicine
DX: J44.9 Chronic obstructive pulmonary disease, unspecified (principal); R09.02 Hypoxemia; J43.1 Panlobular emphysema
CPT/HCPCS: 71260; Q9967

== ENCOUNTER 2024-12-08 13:50 | Outpatient (CLI) | payer MEDICARE, SELFPAY ==
--- OUTSIDE RECORDS SUMMARY | 2024-12-08 15:59 | XMS_ITS | Referral Summary ---
Author Organization [facility] [place] [address] Address [address] [place] [address] Care Team Providers Care Outreach And Education Social Worker Name Role Phone Jessie Acosta MD Primary Care Provider Greg Brandon DO Unavailable [phone] Allergies Active Allergy Reactions Criticality Noted Date [...] (04/23/2019): Added automatically from request for surgery [id number] Dyspnea on exertion 11/17/2018 01/08/20 22 Immunizations Immunization Administration Dates Next Due Influenza, Quadrivalent, Hig [...] on file Legal Sex Female 9:43 AM DIRECTOR OF DISTRIBUTION Gender Identity Not on file Sexual Orientation Not on file 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 Industry 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 Job End Date 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 on file Not on fi le Last Filed Vital Signs Vital Sign Reading Time Taken Comments Blood Pressure 120/64 02/03/2024 9:59 AM CDT Pulse 77 02/03/2024 9:59 AM CDT Temperature 36.4 C (97.6 F) 11/09/2019 1:33 PM DIRECTOR OF DISTRIBUTION Respiratory Rate 16 11/02/2019 10:52 AM DIRECTOR OF DISTRIBUTION Oxygen Saturation 92% 02/03/2024 9:59 AM CDT Inhaled Oxygen Concentration - - Weight 55.8 kg (123 lb) 02/03/2024 9:59 AM CDT Height 160 cm (5' 3 ) 02/03/2024 9:59 AM CDT Body Mass Index 21.79 02/03/2024 9:59 AM CDT Plan of Treatment Not on file Medical Devices Implanted Type Area Press Operator Carbon Blocks Device Identifier Shelf Expiration Date Model / Serial / Lot Bob [employer]iences [id number] Inspiris Resilia Leaflet Sewing Ring 21mm Valve Aortic Bovine - [id number] - [id number] Implanted:Qty: 1 on 05/01/2019 by Doc Schneider MD at [facility] N/A: Heart Bob [employer] 11/04/2020 [id number] / [id number] / [facility] --11 Drill-Free; Maxdrive Od2.3 Mm L11 Mm Self Retaining; Lock Sternal - [id number] Implanted:Qty: 4 on 05/01/2019 by Doc Schneider MD at [facility] N/A: Sternum [facility] 24-023-11 / / [facility] 24-025-48 Titanium 1.8mm 4 Hole Sternal Straight Plate Bone Midline - [id number] Implanted:Qty: 1 on 05/01/2019 by Doc Schneider MD at [facility] N/A: Omi HurtadoAlfonso 24-025-48 / / Insurance MEDICARE [employer] MEDICARE [employer] MEDICARE CIGNA MEDICARE SUPPLEMENT INSURANCE MEDICARE SOLUTIONS Advance Directives For more information, please contact: [phone] * Full Code (Latest Code Status on File) Date Activated Date Inactivated Comments 05/01/2019 3:47 PM 05/07/2019 7:53 PM Care Teams Outreach And Education Social Worker Relationship Specialty Start Date End Date Jessie Acosta MD PCP - General Family Practice 09/03/18 Greg Brandon DO [address] [place] [address] Medical Oncologist/Commercial Litigation Paralegal Hematology and Oncology 06/03/19
--- OUTSIDE RECORDS SUMMARY | 2024-12-08 15:59 | XMS_ITS | Encounter Summary ---
Author Organization [facility] Address [address] [place] [address] Care Team Providers Care Veterans' Counselor Name Role Phone Benjamin Soto Primary Care Provider [phone] Jessie Acosta MD Primary Care Provider Greg Brandon DO Unavailable [phone] Encounter Details Date Type Department Care Team (Late st Contact Info) Description 11/19/2016 Orders Only [facility] ProviderPresley MD [address] [place] [address] Social History Tobacco Use Types Packs/Day Years Used Date Smoking Tobacco: Never Assessed Comments Unknown Sex and Gender Information Value Date Recorded Sex Assigned at Not on file Legal Sex Female 9:43 AM REVIEW NURSE Gender Identity Not on file Sexual Orientation [...] on filedocumented in this encounter Care Teams Veterans' Counselor Relationship Specialty Start Date End Date Benjamin Soto [address] [place] [address] PCP - General 11/19/16 09/02/18 Jessie Acosta MD [address] [place] [address] [place] [address] PCP - General Family Practice 09/03/18 Greg Brandon DO [address] [place] [address] Medical Oncologist/Hematologis t Hematology and Oncology 06/03/19 documented as of this encounter
--- OUTSIDE RECORDS SUMMARY | 2024-12-08 15:59 | XMS_ITS | Clinical Summary ---
Author Organization [facility] [place] [address] Address [address] [place] [address] Care Team Providers Care Manager Monitoring Name Role Phone Jessie Acosta MD Primary Care Provider Greg Brandon DO Unavailable [phone] Allergies Active Allergy Reactions Criticality Noted Date [...] (04/23/2019): Added automatically from request for surgery [id number] Dyspnea on exertion 11/17/2018 01/08/20 22 Immunizations [...] on file Legal Sex Female 9:43 AM FIRE MARSHAL Gender Identity Not on file Sexual Orientation Not on file Occupation Industry 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 Job End Date 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 Not on file Not on fi le Obstetrics History Last Filed Vital Signs Vital Sign Reading Time Taken Comments Blood Pressure 120/64 02/03/2024 9:59 AM CDT Pulse 77 02/03/2024 9:59 AM CDT Temperature 36.4 C (97.6 F) 11/09/2019 1:33 PM FIRE MARSHAL Respiratory Rate 16 11/02/2019 10:52 AM FIRE MARSHAL Oxygen Saturation 92% 02/03/2024 9:59 AM CDT [...] 07/19/2015, 07/14 Medical Devices Implanted Type Area Hvac/R Service Technician Device Identifier Shelf Expiration Date Model / Serial / Lot Bob [employer]iences [id number] Inspiris Resilia Leaflet Sewing Ring 21mm Valve Aortic Bovine - [id number] - [id number] Implanted:Qty: 1 on 05/01/2019 by Doc Schneider MD at [facility] N/A: Heart Bob [employer] 11/04/2020 [id number] / [id number] / [employer] -- Drill-Free; Maxdrive Od2.3 Mm L11 Mm Self Retaining; Lock Sternal - [id number] Implanted:Qty: 4 on 05/01/2019 by Doc Schneider MD at [facility] N/A: Sternum [employer] -11 / / s-[employer]p 025-48 Titanium 1.8mm 4 Hole Sternal Straight Plate Bone Midline - [id number] Implanted:Qty: 1 on 05/01/2019 by Doc Schneider MD at [facility] N/A: Sternum [employer] 24-025-48 / / Insurance MEDICARE [facility] MEDICARE Address: [facility] [address] [place] [address] MEDICARE [employer] [facility] MEDIC[facility] Address: [address] [address] [place] [address] MEDICARE [facility] MEDICARE SUPPLEMENT INSURANCE MEDICARE SOLUTIONS Advance Directives For more information, please contact: [phone] * Full Code (Latest Code Status on File) Date Activated Date Inactivated Comments 05/01/2019 3:47 PM 05/07/2019 7:53 PM Care Teams Manager Monitoring Relationship Specialty Start Date End Date Jessie Acosta MD PCP - General Family Practice 09/03/18 Greg Brandon DO [address] [place] [address] Medical Oncologist/Operator [employer] Hematology and Oncology 06/03/19
--- OUTSIDE RECORDS SUMMARY | 2024-12-08 15:59 | XMS_ITS | Referral Summary ---
Author Organization [email or web address] Address [address] [place] [address] Care Team Providers Care Precast Concrete Ironworker Name Role Phone Jessie Acosta MD Primary Care Provider Source Comments [email or web address],non-owned Affiliates and Associated Physician Practices is amultiple site organization consisting of ambulatory clinics and hospital sitesin [place], [place], [place] and [place]. This disclosure is being madepursuant to the Care Everywhere program and may not contain all information available regarding this patient. Last updated 18.[email or web address] Allergies Active Allergy Reactions Criticality Noted Date [...] of Treatment Not on file Care Teams Precast Concrete Ironworker Relationship Specialty Start Date End Date Jessie Acosta MD [address] [place] [address] PCP - General 03/31/19
--- OUTSIDE RECORDS SUMMARY | 2024-12-08 15:59 | XMS_ITS | Clinical Summary ---
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
--- OUTSIDE RECORDS SUMMARY | 2024-12-08 15:59 | XMS_ITS | Patient Health Summary ---
Author Organization [facility] Address [address] [place] [address] Care Team Providers Care Ground Water Technician Name Role Phone Jessie Acosta MD Primary Care Provider Note from [facility],non-owned Affiliates and Associated Physician Practices is amultiple site organization consisting of ambulatory clinics and hospital sitesin [place], [place], [place] and [place]. This disclosure is being madepursuant to the Care Everywhere program and may not contain all information available regarding this patient. Last updated 18.[facility] Allergies * Penicillin G(Rash) -Medium Criticality [...] cm. The tissue is serially sectioned and field support representative portions are submitted in a single [...] A. Histologic features consistent with meningioma. Ab Offc Spec [facility] [place] Alfredo Henson M.D. [place]. 08/01/2001 1224 <1> CPT code 29592 MISCELLANEOUS SAMPLES / Unknown 07/31/2001 12:17 PM CDT 07/31/2001 12:17 PM CDT Historical Provider LAB - PATHOLOGY/C YTOLOGY ORDERABLES Care Teams Ground Water Technician Relationship Specialty Start Date End Date Jessie Acosta MD [address] [place] [phone] PCP - General 03/31/19
--- OUTSIDE RECORDS SUMMARY | 2024-12-08 15:59 | XMS_ITS | Clinical Summary ---
Author Organization [facility] Address [address] [facility] [place] [address] Care Team Providers Care Shearing Shed Hand Name Role Phone Jessie Acosta MD Primary Care Provider Source Comments [facility],non-owned Affiliates and Associated Physician Practices is amultiple site organization consisting of ambulatory clinics and hospital sitesin [place], [place], [place] and [place]. This disclosure is being madepursuant to the Care Everywhere program and may not contain all information available regarding this patient. Last updated 18.[facility] Allergies Active Allergy Reactions Criticality Noted Date [...] age to complete this topic Care Teams Shearing Shed Hand Relationship Specialty Start Date End Date Jessie Acosta MD [address] [place] [id number] PCP - General 03/31/19
[2024-12-08 19:22] LABS: Basophils Absolute Auto 0.1 K/mm3 (0.0-0.1); Basophils Percent Auto 0.7 % (0.2-1.2); Eosinophils Absolute Auto 0.2 K/mm3 (0-0.3); Eosinophils Percent Auto 1.9 % (0-4.4); Hematocrit 34.2 % (37.0-47.0); Hemoglobin 9.9 g/dL (12.0-15.0); Immature Granulocyte Absolute 0.05 K/mm3 (0.00-0.031); Immature Granulocyte Percent A 0.4 % (0-0.5); Immature Platelet Fraction Pct 2.6 % (0.9-11.2); Lymphocytes Absolute Auto 1.37 K/mm3 (0.9-3.2); Lymphocytes Percent Auto 12.1 % (18.3-44.2); Mean Corpuscular HGB Conc 28.9 g/dl (32-36); Mean Corpuscular Hemoglobin 23.7 pg (26-34); Mean Corpuscular Volume 81.8 fl (80-100); Mean Platelet Volume 10.9 fl (7.4-10.4); Neutrophils Absolute Auto 8.6 K/mm3 (1.3-6.7); Neutrophils Percent Auto 75.9 % (45.5-73.1); Platelet Count Result 282 k/mm3 (150-375); Red Blood Count 4.18 M/mm3 (4.2-5.4); Red Cell Distribution Width 18.2 % (11.5-14.5); White Blood Count 11.3 K/mm3 (4.5-10.0)
[2024-12-08 19:38] LABS: Hypochromasia 1+; Ovalocytes 1+; Platelet Estimate Adequate (Adequate); Schistocytes None Seen
[2024-12-08 21:31] LABS: Iron 31 ug/dL (37-170)
[2024-12-08 21:41] LABS: Percent Iron Saturation 7 % (20-50)
[2024-12-08 22:07] LABS: Ferritin 5.61 ng/mL (11.1-264)
== END 2024-12-08 13:51 | disposition home or self-care (01) ==
LOC: ANHGOSHLAB 13:52
PROVIDERS: PCP Family Medicine; Visit Provider Family Medicine
DX: D64.9 Anemia, unspecified (principal); R09.02 Hypoxemia
CPT/HCPCS: 36415; 82728; 83540; 83550; 85025; 85055

== ENCOUNTER 2025-02-08 11:37 | Outpatient (CLI) | payer MEDICARE, SELFPAY ==
[2025-02-08 12:11] LABS: Basophils Absolute Auto 0.1 K/mm3 (0.0-0.1); Basophils Percent Auto 0.5 % (0.2-1.2); Eosinophils Absolute Auto 0.3 K/mm3 (0-0.3); Eosinophils Percent Auto 3.2 % (0-4.4); Hematocrit 38.8 % (37.0-47.0); Hemoglobin 11.7 g/dL (12.0-15.0); Immature Granulocyte Absolute 0.03 K/mm3 (0.00-0.031); Immature Granulocyte Percent A 0.3 % (0-0.5); Lymphocytes Absolute Auto 1.12 K/mm3 (0.9-3.2); Lymphocytes Percent Auto 11.9 % (18.3-44.2); Mean Corpuscular HGB Conc 30.2 g/dl (32-36); Mean Corpuscular Hemoglobin 25.9 pg (26-34); Mean Corpuscular Volume 85.8 fl (80-100); Mean Platelet Volume 9.3 fl (7.4-10.4); Monocytes Absolute Auto 0.9 K/mm3 (0.1-0.6); Monocytes Percent Auto 9.7 % (2.6-8.5); Neutrophils Percent Auto 74.4 % (45.5-73.1); Platelet Count Result 273 k/mm3 (150-375); Red Blood Count 4.52 M/mm3 (4.2-5.4); Red Cell Distribution Width 23.8 % (11.5-14.5); White Blood Count 9.4 K/mm3 (4.5-10.0)
[2025-02-08 12:45] LABS: Anisocytosis 1+; Hypochromasia 1+; Platelet Estimate Adequate (Adequate); Schistocytes None Seen
--- OUTSIDE RECORDS SUMMARY | 2025-02-08 13:37 | XMS_ITS | Clinical Summary ---
Author Organization [facility] Address [address] [place] [address] Care Team Providers Care Steamer Operator Name Role Phone Jessie Acosta MD Primary Care Provider Source Comments [facility],non-owned Affiliates and Associated Physician Practices is amultiple site organization consisting of ambulatory clinics and hospital sitesin [place], [place], [place] and [place]. This disclosure is being madepursuant to the Care Everywhere program and may not contain all information available regarding this patient. Last updated 18.[facility] Allergies Active Allergy Reactions Criticality Noted Date Comments Penicillin G Rash Medium 09/10/2018 Penicillins Rash Medium 12/02/2017 Medications * Be aware that medications may not be up to date on this document. Alwaysverify current medications with the patient. esomeprazole (NEXIUM) 40 MG capsule Take 40 mg by mouth daily before breakfast Active Probiotic Product (PROBIOTIC DAILY PO) Active ferrous [...] 0.01 MCG/ML injection Inject subcutaneously once Active fluticasone-vi lanterol (BREO ELLIPTA) 200-25 MCG/INH inhaler Inhale 1 puff by mouth once daily Active albuterol HFA (PROVENTIL;ALVIN TOLIN;PROAIR) 108 (90 Base) MCG/ACT inhaler Inhale 2 [...] pur e alcohol) 1-2 DRINKS A MONTH Comments No Sex and Gender Information Value Date Recorded Sex Assigned at Not on file Legal Sex Female 6:23 AM BRIDGE INSTRUCTOR Gender Identity Not on file Sexual Orientation [...] VACCINE ( - 2023-2 5 season) 2024 DEPRESSION SCREENING 10/14/2024 INFLUENZA VACCINE (Season Ended) 2025 HEPATITIS B VACCINE Aged Out No longe r eligible based on patient's age to complete this topic HIB VACCINE Aged Out No longer eligi ble based on patient's age to complete this topic HPV VACCINE Aged Out No longer eligi ble based on patient's age to complete this topic MENINGOCOCCAL (Group B) VACC INE SHARED DECISION-MAKING Aged Out No longer eligibl e based on patient's age to complete this topic MENINGOCOCCAL GROUPS A/C/Y/W VACCINE Aged Out No longer eligible b ased on patient's age to complete this topic Insurance MEDICARE Care Teams Steamer Operator Relationship Specialty Start Date End Date Jessie Acosta MD [address] [place] [address] PCP - General 03/31/19
--- OUTSIDE RECORDS SUMMARY | 2025-02-08 13:37 | XMS_ITS | Clinical Summary ---
Author Organization [facility] [place] [address] Address [address] [place] [address] Care Team Providers Care Sports Equipment Racker Name Role Phone Jessie Acosta MD Primary Care Provider Greg Brandon DO Unavailable [phone] Allergies Active Allergy Reactions Criticality Noted Date Comments Penicillin G Rash Medium 09/10/2018 Penicillins Anaphylaxis,Rash High 12/02/2017 Medications Lactobac no.41-Bifidoba ct no.7 70 mg (3 billion cell) capsule Take 1 tablet by mouth daily. Active zolpidem (AMBIEN) 10 mg tabletIndicati ons:Sleep-Onse t Insomnia Take 0.5-1 tablets (5-10 mg total) by mouth nightly as needed Active albuterol HFA (PROVENTIL HFA,VENTOLIN HFA,PROAIR HFA) 90 mcg/actuation inhaler Inhale 1 puff every 4 (four) hours as needed Active esomeprazole DR (NexIUM) 20 mg capsule Take 2 capsules (40 mg total) by mouth daily before breakfast Active aspirin 81 mg enteric coated tablet Take 1 tablet (81 mg total) by mouth daily 30 tablet 11 05/08/20 19 Active docusate sodium (COLACE) 100 mg capsuleIndicat ions:constipat ion Take 1 capsule (100 mg total) by mouth 2 (two) times a day 05/07/20 19 Active acetaminophen (TYLENOL) 500 mg tablet Take 1 tablet (500 mg total) by mouth every 6 (six) hours as needed for pain Active cholecalcifero l (VITAMIN D-3) 50,000 unit capsule TAKE 1 CAPSULE BY MOUTH WEEKLY 09/27/20 20 Active lisinopriL (PRINIVIL,ZEST RIL) 5 mg tablet 10/24/19 21 Active loperamide (IMODIUM) 2 mg capsule Take 1 capsule (2 mg total) by mouth 4 (four) times a day as needed for diarrhea Active loratadine 10 mg capsule Take by mouth Activ e Trelegy Ellipta 200-62.5-25 mcg inhaler 12/29/19 25 Active cyanocobalamin (Vitamin B-12) 1,000 mcg/mL injection Inject 1 mL (1,000 mcg total) into the muscle as instructed every 30 (thirty) days 11/20/19 18 025 Discontinued(No longer taking - Do not display on AVS) fluticasone furoate-vilant Ryan (BREO ELLIPTA) 200-25 mcg/dose diskus inhaler Inhale 1 puff daily 11/14/19 18 025 Discontinued cetirizine (ZyrTEC) 10 mg tablet Take 1 tablet (10 mg total) by mouth daily 025 Discontinued(No longer taking - Do not display on AVS) Active Problems Problem Noted Date Diagnosed Date Palpitations 11/30/2019 Encounter for management of implanted device 02/2019 Postprocedural hypotension 06/01/2019 Chronic diastolic heart failure 06/01/2019 Postoperative atrial fibrillation 06/01/2019 S/P AVR 06/01/2019 Iron deficiency anemia 05/27/2019 Nonrheumatic aortic valve stenosis 11/17/2018 Labile hypertension 11/17/2018 COPD (chronic obstructive pulmonary disease) 01/2019 Encounter for other preprocedural examination Resolved Problems Problem Noted Date Diagnosed Date Resolved Date Idiopathic hypotension 11/30/201901/07 Aortic valve stenosis 04/23/20192021 Overview (04/23/2019): Added automatically from request for surgery [id number] Dyspnea on exertion 11/17/2018 01/08/20 22 Encounters Date Type Department Care Team Description 02/08/2025 11:00 AM CDT Office Visit [facility] Cardiology [address] [facility] [address] [place] [address] Chica Branch MD S/P AVR (Primary Dx); Postoperative atrial fibrillation (HCC); Labile hypertension; Chronic diastolic heart failure (HCC); Palpitations 01/13/2025 12:45 PM CDT Infusion [facility] [place] at [address] [phone] Iron deficiency anemia due to chronic blood loss (Primary Dx); Iron deficiency anemia, unspecified iron deficiency anemia type 01/13/2025 12:15 PM CDT Lab [facility] [place] at [address] [address] Iron deficiency anemia, unspecified iron deficiency anemia type 01/06/2025 12:45 PM CDT Infusion [facility] at [address] [phone] Iron deficiency anemia due to chronic blood loss (Primary Dx); Iron deficiency anemia, unspecified iron deficiency anemia type 12/30/2024 12:45 PM CDT Infusion [facility] at [address] [phone] Iron deficiency anemia due to chronic blood loss (Primary Dx); Iron deficiency anemia, unspecified iron deficiency anemia type 12/25/2024 11:30 AM CDT Office Visit [facility] Oncology [address] [place] [address] [address] [place] [address] Greg Brandon, Iron deficiency anemia, unspecified iron deficiency anemia type (Primary Dx) from Last 3 Months Immunizations Immunization Administration Dates Next Due Influenza, [...] 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 Monthly or less 12/25/2024 Q2: How many drinks containi ng alcohol do you have on a typical day when you are drinking? 1 or 2 12/25/2024 Q3: How often do you have si x or more drinks on one occasion? 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 Not on file Not on fi le Obstetrics History Last Filed Vital Signs Vital Sign Reading Time Taken Comments Blood Pressure 116/54 02/08/2025 11:13 AM CDT Pulse 78 02/08/2025 11:13 AM CDT Temperature 36.7 C (98 F) 01/13/2025 2:33 PM CDT Respiratory Rate 20 01/13/2025 2:33 PM CDT Oxygen Saturation 89% 02/08/2025 11:13 AM CDT Inhaled Oxygen Concentration - - Weight 52.2 kg (115 lb) 02/08/2025 11:13 AM CDT Height 160 cm (5' 3 ) 02/08/2025 11:13 AM CDT Body Mass Index 20.37 02/08/2025 11:13 AM CDT Plan of Treatment Health Maintenance Due Date Last Done Comments Depression Screening 1941 Fall Risk Assessment 1941 Osteoporosis Screening-Bone Density Scan 1941 Hepatitis B Screening 1959 Well Visit 65+ 2006 DTaP/Tdap/Td Vaccine (1 - Tdap) 10/15/2016 7, 11/05/2014 Zoster Vaccine (2 of 2) 07/30/2018 06/04/2018 Covid-19 Vaccine (3 - season) 06/14/202411/2020, 11/10/2020 Influenza Vaccine (Season Ended) 2025 06/28/20 20, 06/14/2018 Pneumococcal vaccine 65+ Completed 07/19/2015, 07/14 Medical Devices Implanted Type Area Gis Database Administrator Device Identifier Shelf Expiration Date Model / Serial / Lot Bob Lifesciences [id number] Inspiris Resilia Leaflet Sewing Ring 21mm Valve Aortic Bovine - [id number] - [id number] Implanted:Qty: 1 on 05/01/2019 by Doc Schneider MD at [facility] N/A: Heart [employer] 11/04/2020 [id number] / [id number] / [facility] 24-023-11 Drill-Free; Maxdrive Od2.3 Mm L11 Mm Self Retaining; Lock Sternal - [id number] Implanted:Qty: 4 on 05/01/2019 by Doc Schneider MD at [facility] N/A: Sternum [facility] 24-023-11 / / [facility] 24-025-48 Titanium 1.8mm 4 Hole Sternal Straight Plate Bone Midline - [id number] Implanted:Qty: 1 on 05/01/2019 by Doc Schneider MD at [facility] N/A: [facility] 24-025-48 / / Procedures Procedure Name Priority Date/Time Associated Diagnosis Comments DIFFERENTIAL AUTO Routine 01/13/2025 12: 42 PM CDT Iron deficiency anemia, unspecified iron deficiency anemia type CBC WITH AUTO DIFFERENTIAL Routine 01/13/2025 12:42 PM CDT Iron deficiency anemia, unspecified iron deficiency anemia type from Last 3 Months Results * (ABNORMAL) Differential, auto (01/13/2025 12:42 PM CDT) Pathologist [facility] Neutrophil abs 8.88(H) 1.50 - 6.50 K/cumm Comment:Testing performed by : [address] [address] Imm gran abs 0.07 0.00 - 0.10 K/cumm JARRETT Comment:Testing performed by : [address] [address] Lymphocyte abs 1.17 0.80 - 3.30 K/cumm JARRETT Comment:Testing performed by : [address] [address] Monocyte abs 0.94(H) 0.20 - 0.80 K/cumm JARRETT Comment:Testing performed by : [address] [address] Eosinophil abs 0.35 0.00 - 0.50 K/cumm JARRETT Comment:Testing performed by : [address] [address] Basophil abs 0.07 0.00 - 0.10 K/cumm [facility] Comment:Testing performed by : [address] [address] Neutrophil pct 77.4 % [facility] Comment: Interpretive Data Percent cell count reference ranges are not reported, since discordance with absolute values may lead to misinterpretation of CBC data. Current Interpretive Data was last revised on 2018. Testing performed by: [address] [address] Imm gran pct 0.6 % [facility] Comment: Interpretive Data Percent cell count reference ranges are not reported, since discordance with absolute values may lead to misinterpretation of CBC data. Current Interpretive Data was last revised on 2018. Testing performed by: [address] [address] Lymphocyte pct 10.2 % [facility] Comment: Interpretive Data Percent cell count reference ranges are not reported, since discordance with absolute values may lead to misinterpretation of CBC data. Current Interpretive Data was last revised on 2018. Testing performed by: [address] [place]., [address] Monocyte pct 8.2 % JARRETT Comment: Interpretive Data Percent cell count reference ranges are not reported, since discordance with absolute values may lead to misinterpretation of CBC data. Current Interpretive Data was last revised on 2018. Testing performed by: [address] [address] Eosinophil pct 3.0 % JARRETT Comment: Interpretive Data Percent cell count reference ranges are not reported, since discordance with absolute values may lead to misinterpretation of CBC data. Current Interpretive Data was last revised on 2018. Testing performed by: [address] [address] Basophil pct 0.6 % JARRETT Comment: Interpretive Data Percent cell count reference ranges are not reported, since discordance with absolute values may lead to misinterpretation of CBC data. Current Interpretive Data was last revised on 2018. Testing performed by: [address] [address] Blood 01/13/2025 12:4 2 PM CDT 01/13/2025 12:44 PM CDT Greg Brandon DO LAB BLOOD ORDERABLES Final R esult JARRETT [address] [facility] Department [place] [address] * (ABNORMAL) CBC with auto differential (01/13/2025 12:42 PM CDT) WBC 11.48(H) 3.80 - 9.90 K/cumm Comment:Testing performed by : [address] [address] Hgb 10.7(L) 11.9 - 15.5 g/dL JARRETT MCKAY Comment:Testing performed by : [address] [address] Hct 34.8(L) 35.6 - 45.5 % JARRETT Comment:Testing performed by : [address] [address] Plt 358 150 - 400 K/cumm JARRETT Comment:Testing performed by : [address] [address] MPV 9.3 9.1 - 12.3 fL JARRETT Comment:Testing performed by : [address] [address] RBC 4.40 3.90 - 5.20 M/cumm JARRETT Comment:Testing performed by : [address] [address] MCV 79.1(L) 81.3 - 96.4 fL JARRETT Comment:Testing performed by : [address] [address] MCH 24.3(L) 27.1 - 33.3 pg JARRETT Comment:Testing performed by : [address] [address] MCHC 30.7(L) 32.3 - 35.7 g/dL JARRETT Comment:Testing performed by : [address] [address] RDW CV 22.8(H) 11.1 - 14.9 % JARRETT Comment:Testing performed by : [address] [address] RDW SD 64.1(H) 35.7 - 48.1 fL JARRETT Comment:Testing performed by : [address] [address] NRBC abs 0.00 0.00 - 0.01 K/cumm JARRETT Comment:Testing performed by : [address] [address] ANC Prelim 8.88(H) 1.50 - 6.50 K/cumm JARRETT Comment: Interpretive Data The rapid ANC is a preliminary automated count and may vary from the final ANC (Neut Abs) reported in the WBC differential that follows. Current interpretive data was last revised 2024. Testing performed by: [address] [address] Blood 01/13/2025 12:4 2 PM CDT 01/13/2025 12:44 PM CDT us Greg Brandon DO LAB BLOOD ORDERABLES Final R esult [facility] [address] [facility] [place] [address] from Last 3 Months Insurance [facility] Address: [place] [id number] [facility] Address: [address] [address] [place] [address] [facility] MEDICARE SUPPLEMENT INSURANCE [facility] MEDICARE ADVANTAGE [facility] Address: [address] [address] [place] [address] Advance Directives For more information, please contact: [phone] * Full Code (Latest Code Status on File) Date Activated Date Inactivated Comments 05/01/2019 3:47 PM 05/07/2019 7:53 PM Care Teams Sports Equipment Racker Relationship Specialty Start Date End Date Jessie Acosta MD PCP - General Family Practice 09/03/18 Greg Brandon DO [address] [place] [address] Medical Oncologist/Registered Associate Hematology and Oncology 06/03/19
--- OUTSIDE RECORDS SUMMARY | 2025-02-08 13:37 | XMS_ITS | Referral Summary ---
Author Organization [facility] [place] [address] [facility] [address] Address [address] [place] [address] Care Team Providers Care Instrument Designer Name Role Phone Jessie Acosta MD Primary Care Provider Greg Brandon DO Unavailable Encounters Date Type Department Care Team Description 02/08/2025 11:00 AM CDT Office Visit [facility] Cardiology [address] [place] [address] Chica Branch MD S/P AVR (Primary Dx); Postoperative atrial fibrillation (HCC); Labile hypertension; Chronic diastolic heart failure (HCC); Palpitations 01/13/2025 12:15 PM CDT Lab [facility] at [address] [address] Iron deficiency anemia, unspecified iron deficiency anemia type 01/13/2025 12:45 PM CDT Infusion [facility] at [address] [place] [address] Iron deficiency anemia due to chronic blood loss (Primary Dx); Iron deficiency anemia, unspecified iron deficiency anemia type 01/06/2025 12:45 PM CDT Infusion [facility] at [address] [place] [address] Iron deficiency anemia due to chronic blood loss (Primary Dx); Iron deficiency anemia, unspecified iron deficiency anemia type 12/30/2024 12:45 PM CDT Infusion [facility] at [address] [place] [address] Iron deficiency anemia due to chronic blood loss (Primary Dx); Iron deficiency anemia, unspecified iron deficiency anemia type 12/25/2024 11:30 AM CDT Office Visit [facility] Physicians [facility] Oncology [address] [place] [address] [address] [place] [address] Greg Brandon DO Iron deficiency anemia, unspecified iron deficiency anemia type (Primary Dx) from Last 3 Months Allergies Active Allergy Reactions Criticality Noted Date [...] (04/23/2019): Added automatically from request for surgery [id number] Dyspnea on exertion 11/17/2018 01/08/20 22 Immunizations [...] Former Cigarettes 2 25 1 962 - 1987 Smokeless Tobacco: Never Tobacco Cessation:Counseling Given: Not [...] on file Legal Sex Female 9:43 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 N/A: Heart [employer] 11/04/2020 [id number] / [id number] / [employer] 24-023-11 Drill-Free; Maxdrive Od2.3 Mm L11 Mm Self Retaining; Lock Sternal - [id number] Implanted:Qty: 4 on 05/01/2019 by Doc Schneider MD at [facility] N/A: Sternum [facility] 24-023-11 / / [facility] 025-48 Titanium 1.8mm 4 Hole Sternal Straight Plate Bone Midline - [id number] Implanted:Qty: 1 on 05/01/2019 by Doc Schneider MD at [facility] N/A: Sternum [facility] 24-025-48 / / Procedures Procedure Name Priority Date/Time Associated Diagnosis Comments DIFFERENTIAL AUTO Routine 01/13/2025 12: 42 PM CDT Iron deficiency anemia, unspecified iron deficiency anemia type CBC WITH AUTO DIFFERENTIAL Routine 01/13/2025 12:42 PM CDT Iron deficiency anemia, unspecified iron deficiency anemia type from Last 3 Months Results * (ABNORMAL) Differential, auto (01/13/2025 12:42 PM CDT) Neutrophil abs 8.88(H) 1.50 - 6.50 K/cumm Comment:Testing performed by : [address] [address] Imm gran abs 0.07 0.00 - 0.10 K/cumm JARRETT Comment:Testing performed by : [address] [address] Lymphocyte abs 1.17 0.80 - 3.30 K/cumm JARRETT Comment:Testing performed by : [address] [address] Monocyte abs 0.94(H) 0.20 - 0.80 K/cumm JARRETT Comment:Testing performed by : [address] [address] Eosinophil abs 0.35 0.00 - 0.50 K/cumm JARRETT Comment:Testing performed by : [address] [address] Basophil abs 0.07 0.00 - 0.10 K/cumm JARRETT Comment:Testing performed by : [address] [address] Neutrophil pct 77.4 % JARRETT Comment: Interpretive Data Percent cell count reference ranges are not reported, since discordance with absolute values may lead to misinterpretation of CBC data. Current Interpretive Data was last revised on 2018. Testing performed by: [address] [address] Imm gran pct 0.6 % [facility] Comment: Interpretive Data Percent cell count reference ranges are not reported, since discordance with absolute values may lead to misinterpretation of CBC data. Current Interpretive Data was last revised on 2018. Testing performed by: [address] [address] Lymphocyte pct 10.2 % [facility] Comment: Interpretive Data Percent cell count reference ranges are not reported, since discordance with absolute values may lead to misinterpretation of CBC data. Current Interpretive Data was last revised on 2018. Testing performed by: [address] [address] Monocyte pct 8.2 % [facility] Comment: Interpretive Data Percent cell count reference ranges are not reported, since discordance with absolute values may lead to misinterpretation of CBC data. Current Interpretive Data was last revised on 2018. Testing performed by: [address] [address] Eosinophil pct 3.0 % [facility] Comment: Interpretive Data Percent cell count reference ranges are not reported, since discordance with absolute values may lead to misinterpretation of CBC data. Current Interpretive Data was last revised on 2018. Testing performed by: [address] [address] Basophil pct 0.6 % [facility] Comment: Interpretive Data Percent cell count reference ranges are not reported, since discordance with absolute values may lead to misinterpretation of CBC data. Current Interpretive Data was last revised on 2018. Testing performed by: [address] [address] Blood 01/13/2025 12:4 2 PM CDT 01/13/2025 12:44 PM CDT us Greg Brandon DO LAB BLOOD ORDERABLES Final R esult JARRETT [address] [facility] Department [place] [address] * (ABNORMAL) CBC with auto differential (01/13/2025 12:42 PM CDT) WBC 11.48(H) 3.80 - 9.90 K/cumm Comment:Testing performed by : [address] [address] Hgb 10.7(L) 11.9 - 15.5 g/dL JARRETT Comment:Testing performed by : [address] [address] Hct 34.8(L) 35.6 - 45.5 % JARRETT Comment:Testing performed by : [address] [address] Plt 358 150 - 400 K/cumm JARRETT Comment:Testing performed by : [address] [address] MPV 9.3 9.1 - 12.3 fL JARRETT Comment:Testing performed by : [address] [address] RBC 4.40 3.90 - 5.20 M/cumm JARRETT Comment:Testing performed by : [address] [address] MCV 79.1(L) 81.3 - 96.4 fL JARRETT Comment:Testing performed by : [address] [address] MCH 24.3(L) 27.1 - 33.3 pg JARRETT Comment:Testing performed by : [address] [address] MCHC 30.7(L) 32.3 - 35.7 g/dL JARRETT Comment:Testing performed by : [address] [address] RDW CV 22.8(H) 11.1 - 14.9 % JARRETT Comment:Testing performed by : [address] [address] RDW SD 64.1(H) 35.7 - 48.1 fL JARRETT MCKAY Comment:Testing performed by : [facility], [address] [place] [address]., [address] NRBC abs 0.00 0.00 - 0.01 K/cumm JARRETT MCKAY Comment:Testing performed by : [facility], [address] [place] [address]., [address] ANC Prelim 8.88(H) 1.50 - 6.50 K/cumm JARRETT MCKAY Comment: Interpretive Data The rapid ANC is a preliminary automated count and may vary from the final ANC (Neut Abs) reported in the WBC differential that follows. Current interpretive data was last revised 2024. Testing performed by: [facility], [address] [place] [address]., [address] Blood 01/13/2025 12:4 2 PM CDT 01/13/2025 12:44 PM CDT Greg Brandon DO LAB BLOOD ORDERABLES Final R esult MARILYNJACOB [address] [facility] Department [place] [address] from Last 3 Months Insurance [facility] MEDICARE AD[facility]ANTAGE [facility] Address: [facility] [address] [place] [address] [facility] MEDICARE ADVANTAGE MEDICARE [facility] MEDICARE SUPPLEMENT INSURANCE [facility] MEDICARE ADVANTAGE Advance Directives For more information, please contact: [phone] * Full Code (Latest Code Status on File) Date Activated Date Inactivated Comments 05/01/2019 3:47 PM 05/07/2019 7:53 PM Care Teams Instrument Designer Relationship Specialty Start Date End Date Jessie Acosta MD PCP - General Family Practice 09/03/18 Greg Brandon DO [address] [place] [address] Medical Oncologist/Accounts Receivable Collector Hematology and Oncology 06/03/19
--- OUTSIDE RECORDS SUMMARY | 2025-02-08 13:37 | XMS_ITS | Clinical Summary ---
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
--- OUTSIDE RECORDS SUMMARY | 2025-02-08 13:37 | XMS_ITS | Encounter Summary ---
Author Organization [facility] Address [address] [facility] [address] [place] [address] Care Team Providers Care Bending Frame Operator Name Role Phone Benjamin Soto Primary Care Provider [phone] Jessie Acosta MD Primary Care Provider Greg Brandon DO Unavailable [phone] Encounter Details Date Type Department Care Team (Late st Contact Info) Description 11/19/2016 Orders Only [facility] ProviderPresley MD [address] [place] [address] Social History Tobacco Use Types Packs/Day Years Used Date Smoking Tobacco: Never Assessed Comments Unknown Sex and Gender Information Value Date Recorded Sex Assigned at Not on file Legal Sex Female 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
--- OUTSIDE RECORDS SUMMARY | 2025-02-08 13:37 | XMS_ITS | Encounter Summary ---
Author Organization [facility] Healthcare Address [address] [place] [address] Care Team Providers Care Base Engineer Name Role Phone Jessie Acosta MD Primary Care Provider Greg Brandon DO Unavailable [phone] Reason for Referral * Cardiology (Routine) - Authorized Specialty Diagnoses / Procedures Referred By Contac t Referred To Contact Diagnoses S/P AVR Chronic diastolic heart failure (HCC) Procedures Transthoracic Echo (TTE) Complete W Doppler/CF Chica Branch MD [facility] [address] [address] Phone: tel: fax: [facility] Cardiology [address] [place] [phone] Phone: tel: fax: Referral ID Status Reason Start Date Expiration Date V isits Requested Visits Authorized [id number] Authorized 02/08/2025 03/10/2026 1 1 Reason for Visit * Reason Comments Atrial Fibrillation Aortic Stenosis Heart Failure Valve Disorder Hypertension Annual f/u Encounter Details Date Type Department Care Team (Late st Contact Info) Description 02/08/2025 11:00 AM CDT Office Visit [facility] Cardiology [address] [place] [phone] Chica Branch MD [address] [facility] [address] [place] [address] S/P AVR (Primary Dx); Postoperative atrial fibrillation (HCC); Labile hypertension; Chronic diastolic heart failure (HCC); Palpitations Social History Tobacco Use Types Packs/Day Years Used Date Smoking Tobacco: Former Cigarettes 2 - 1986 Smokeless Tobacco: Never Alcohol Use Standard Drinks/Week Comments Yes 0 [...] on file Legal Sex 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 Gender Identity Not on file Sexual Orientation Not on file Occupation Industry 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 Job End Date 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 [employer] Not on file Not on file Not on fi le documented as of this encounter Last Filed Vital Signs Vital Sign Reading Time Taken Comments Blood Pressure 116/54 02/08/2025 11:13 AM CDT Pulse 78 02/08/2025 11:13 AM CDT Temperature - - Respiratory Rate - - Oxygen Saturation 89% 02/08/2025 11:13 AM CDT Inhaled Oxygen Concentration - - Weight 52.2 kg (115 lb) 02/08/2025 11:13 AM CDT Height 160 cm (5' 3 ) 02/08/2025 11:13 AM CDT Body Mass Index 20.37 02/08/2025 11:13 AM CDT documented in this encounter Progress Notes * Chica Branch MD - 02/08/2025 11:00 AM CDT [facility] CHIEF COMPLAINT Chief Complaint Patient presents with Atrial Fibrillation Aortic Stenosis Heart Failure Valve Disorder Hypertension Annual f/u HPI Mary Ann Choe is a 84 y.o. female with past medical history of hypertension, hyperlipidemia, COPD, GERD, anemia due to iron deficiency and vitamin B deficiency(normal upper and lower scopes), aortic stenosis, chronic back pain and urge incontinence was referred to our clinic for evaluation for aortic stenosis. Apparently underwent an echocardiogram on September 10, 2018 that shows moderate to severe aortic stenosis with valve area 1.06cm2 and mean gradient 28. Ejection fraction more than 70%. She denies chest pain but admits to some dyspnea on exertion for the last couple years specially going up hill. Denies dizziness, syncope, orthopnea, paroxysmal nocturnal dyspnea. Admits to some bilateral lower limb edema. 06/01/2019. Returns for follow-up appointment with her son on her . Since last visit apparently patient had episode of syncope and injured her right ankle. It was thought to be arrhythmogenic. She was referred for TAVR evaluation and was found to be low risk for TAVR and then underwent aorticvalve replacement by on May 01, 2019 using mini sternotomy and using 20. 1 bioprosthetic aortic valve. Postoperatively developed paroxysmal atrial fibrillation and was started on Eliquis andamiodarone. She was discharged home with physical therapy. Postoperatively also she was hypotensiveAnd was started on midodrine 5 mg t.i.d. Recently underwent event monitor that shows 5 episodes of atrial fibrillation. Today complains of generalized fatigability but denies, shortness of breath, ort hopnea, paroxysmal nocturnal dyspnea, dizziness, syncope. She does have swelling in the right lowerextremity intermittently and related to injury in the right ankle. She also complains of pain in the are sternal wound. 07/13/2019. Returns for follow-up appointment. Denies chest pain, shortness of breath, lower limb edema, orthopnea, paroxysmal nocturnal dyspnea, dizziness, syncope. She gained some 6 lb since last visit. 09/21/2019. Returns for follow-up appointment with her son. Underwent event monitor in July 2019 and did not show atrial fibrillation. Denies chest pain, shortness of breath, orthopnea, paroxysmal nocturnal dyspnea, dizziness, syncope, lower limb edema. She has lost 5 lb since last visit. She started walking daily. Her has Parkinson disease and now he is in [place]. 11/30/2019. Returns for follow-up appointment with her son. She called our office in September 2019 complaining of increasing palpitations and event monitor was arranged. The event monitor showed frequent premature ventricular contractions 1% of the total beats. No atrial fibrillation. She reports at that time when she had the palpitations she was very stressed out because her was visitingthe emergency room very frequently. Her is much better now and she is less stressed. Palpitations resolved. Denies chest pain, lower limb edema, orthopnea, paroxysmal nocturnal dyspnea, dizziness, syncope. 06/06/2020. Returns for follow-up appointment with her son. Denies chest pain, shortness of breath,palpitations, lower limb edema, dizziness, syncope. 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 12/12/2020-Returns for follow-up appointment with her son. Denies chest pain, shortness of breath, dizziness, syncope, lower limb edema. She is no longer taking Lasix and midodrine and was started onlisinopril 5 mg daily by PCP. Blood pressure today 104/60. She ambulates using a cane. 01/04/2022. Returns for follow-up appointment. She ambulates using a walker. Interestingly she mentions to me that she had a lot of dental work and did not take antibiotic prophylaxis??. I was surprised about this finding. She denies lower extremity edema, chest pain, dizziness, syncope. She lost about from 15 lb compared to last visit on attributes it to dental problems with inability to eat andshe with food properly. Denies fever, chills. She also reports unsteady gait and apparently was given referral to Neurology and was told that there could be recurrence of brain tumor. She did have brain tumor in the past. She will undergo brain MRI to further evaluate. 01/07/2023-returns for follow-up appointment accompanied by her son. Lost 10 lb compared to last year because of chief issues. Denies chest pain, shortness of breath, lower extremity edema, dizziness, syncope. Ambulates with a walker 02/03/2024-returns for follow-up appointment. She is here accompanied by her son. She did lose 40 lb compared to last visit. She states that she has poor dentures and she has been busy taking care ofher who has Parkinson. She does have stable cough and dyspnea on exertion unchanged from before. Denies lower extremity edema, dizziness or syncope, chest pain 02/08/2025-returns for follow-up appointment. She lost 8 lb compared to last visit. She is not eating as much. Her back in August. She has stable dyspnea on exertion unchanged from before. Denies chest pain, lower extremity edema, palpitations, dizziness or syncope. 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 Syncope Vertigo Past Surgical History: Procedure Laterality Date APPENDECTOMY BRAIN SURGERY 2000 for benign tumor CHOLECYSTECTOMY COLECTOMY colon resection d/t large polyps COLONOSCOPY TUBAL LIGATION Social History Tobacco Use Smoking status: Former Smoker Packs/day: 2.00 Years: 25.00 Pack years: 50.00 Quit date: 1986 Years since quittin.2 Smokeless tobacco: Never Used Substance Use Topics Alcohol use: Yes Comment: social drinker Drug use: No Family History Problem Relation Age of Onset Heart failure Mother Diabetes Mother Hypertension Mother Stroke Father Hypertension Father MEDICATIONS HOME MEDICATIONS : acetaminophen (TYLENOL) 500 mg tablet albuterol HFA (PROVENTIL HFA,VENTOLIN HFA,PROAIR HFA) 90 mcg/actuation inhaler aspirin 81 mg enteric coated tablet cholecalciferol (VITAMIN D-3) 50,000 unit capsule docusate sodium (COLACE) [address] (NexIUM) 20 mg capsule Lactobac no.41-Bifidobact no.7 70 mg (3 billion cell) capsule lisinopriL (PRINIVIL,ZESTRIL) 5 mg tablet loperamide (IMODIUM) 2 mg capsule loratadine 10 mg capsule Trelegy Ellipta 200-62.5-25 mcg inhaler zolpidem (AMBIEN) 10 mg tablet cetirizine (ZyrTEC) 10 mg tablet cyanocobalamin (Vitamin B-12) 1,000 mcg/mL injection fluticasone furoate-vilanteroL (BREO ELLIPTA) 200-25 mcg/dose diskus inhaler ALLERGIES Allergies Allergen Reactions Penicillins Anaphylaxis and Rash Penicillin G Rash REVIEW OF SYSTEMS Review of Systems Constitutional: Positive for malaise/fatigue and weight loss. Negative for chills and fever. HENT: Negative for congestion and sore throat. Eyes: Negative for blurred vision and double vision. Cardiovascular: Positive for dyspnea on exertion. Negative for chest pain, claudication, leg swelling, near-syncope, orthopnea, palpitations, paroxysmal nocturnal dyspnea and syncope. Respiratory: Positive for cough. Negative for hemoptysis, shortness of breath, snoring, sputum production and wheezing. Endocrine: Negative for cold intolerance and polyuria. Hematologic/Lymphatic: Negative for bleeding problem. Does not bruise/bleed easily. Skin: Positive for color change. Negative for itching and rash. Musculoskeletal: Positive for joint pain. Negative for back pain and joint swelling. Gastrointestinal: Negative for abdominal pain, diarrhea, nausea and vomiting. Genitourinary: Negative for dysuria, frequency and hematuria. Neurological: Positive for loss of balance and numbness. Negative for focal weakness, headaches andlight-headedness. Psychiatric/Behavioral: Negative for depression. The patient is not nervous/anxious. Allergic/Immunologic: Negative for environmental allergies and hives. PHYSICAL EXAM There were no vitals taken for this visit. There is no height or weight on file to calculate BMI. Physical Exam Constitutional: General: She is not in acute distress. Appearance: She is well-developed. HENT: Head: Normocephalic and atraumatic. Right Ear: External ear normal. Left Ear: External ear normal. Eyes: General: No scleral icterus. Left eye: No discharge. Conjunctiva/sclera: Conjunctivae normal. Neck: Thyroid: No thyromegaly. Cardiovascular: Rate and Rhythm: Normal rate and regular rhythm. Heart sounds: Murmur heard. No friction rub. No gallop. Comments: Soft grade 2/6 ejection systolic murmur right 2nd intercostal space Pulmonary: Effort: Pulmonary effort is normal. No respiratory distress. Breath sounds: Rales present. Comments: Bilateral crackles at the bases Chest: Chest wall: No tenderness. Abdominal: General: There is no distension. Palpations: Abdomen is soft. There is no mass. Tenderness: There is no abdominal tenderness. Musculoskeletal: General: No tenderness or deformity. Cervical back: Normal range of motion and neck supple. Comments: spider veins. Skin: General: Skin is warm. Findings: No erythema or rash. Neurological: Mental Status: She is alert and oriented to person, place, and time. Cranial Nerves: No cranial nerve deficit. Motor: No abnormal muscle tone. Psychiatric: Judgment: Judgment normal. LABS AND OTHER DIAGNOSTIC TESTS Lab Results Component Value Date WBC 11.48 (H) 01/13/2025 HGB 10.7 (L) 01/13/2025 HCT 34.8 (L) 01/13/2025 MCV 79.1 (L) 01/13/2025 Chemistry Component Value Date/Time SODIUM 141 05/07/2019 0538 POTASSIUM 4.1 05/07/2019 0538 CHLORIDE 102 05/07/2019 0538 CO2 29 05/07/2019 0538 BUNSER 23 05/07/2019 0538 CREATININE 0.93 05/07/2019 0538 GLUCOSE 102 05/07/2019 0538 Component Value Date/Time CALCIUM 8.4 (L) 05/07/2019 0538 Lipid panel November 17, 2010 HDL 43 and triglyceride 189. Lipid panel January 04, 2022 shows LDL 47, HDL 62, triglycerides 83 and total cholesterol 125 EKG 11/17/2018: Sinus rhythm. No ischemic changes. Echo August 2018.ejection fraction 70%, impaired relaxation, moderate LVH, mild left atrial enlargement, mild mitral regurg calcification, trivial MR, moderate to severe aortic stenosis with peak gradient 56, mean gradient 28 and valve area 1.06 cm2, mild aortic regurgitation. Echo May 2019. Mild concentric left ventricular hypertrophy. Impaired diastolic relaxation Grade I. Ejection fraction is visually estimated at 60-65 %.There is mild enlargement of left atrium. Mild mitral annular calcification. Aortic valve not well visualized. Peak gradient of 26.0 mmHg. Mean gradient of 13.0 mmHg. Valve area of 1.61 cm2. Trace aortic valve regurgitation. Gradients normal for valve type and size. Mild tricuspid regurgitation. Ten day event monitor May 2019. Atrial fibrillation detected with a burden 4% Ten day event monitor July 2019. No atrial fibrillation. Ten day event monitor September 2019. Total of 5000 beats of PVCs corresponding to 1% of the total beats. No atrial fibrillation. Echo January 2023Normal left ventricular systolic function. No focal wall motion abnormalities. Normal left ventricular size. Mild concentric left ventricular hypertrophy. Paradoxical septal motion consistent with post pericardectomy status. Impaired diastolic relaxation Grade I. Ejection fraction is measured at 59 %. Aortic valve not well visualized. No aortic regurgitation. Normal appearing aortic valve prosthesis leaflets not well visualized. Gradients normal for valve type and size. Normal appearance of the tricuspid valve. Mild pulmonary hypertension based on right ventricular systolic pressure. Estimated peak RVSP is 44 mmHg. Trivial regurgitation in the tricuspid valve. Normal sinus rhythm. ASSESSMENT Diagnoses and all orders for this visit: S/P AVR (Primary) Postoperative atrial fibrillation (HCC) Labile hypertension Chronic diastolic heart failure (HCC) Palpitations PLAN/RECOMMENDATIONS -in regards to palpitations, on physical exam today heart rhythm is regular. She did have postoperative atrial fibrillation that has resolved. -in regards for the diastolic heart failure, appears to be euvolemic and compensated. -in regards for Labile hypertension, continue lisinopril 10 mg daily. Blood pressure today 116/54. -in regards for the AVR, echocardiogram 2018 shows normal gradients across aortic valve. Continue aspirin. Repeat echocardiogram January 2023 shows normal functioning aortic valve bioprosthesis. Repeatechocardiogram in 1 year from now. In regards to hyperlipidemia Lipid panel done today January 04, 2022 shows LDL 47, HDL 62, triglycerides 83 and total cholesterol 125. He has no longer on Lipitor 20 mg Follow up in the office in One year Chica Branch MD documented in this encounter Plan of Treatment Scheduled Orders Name Type Priority Associated Diagnoses Order Schedule Transthoracic Echo (TTE) Complete W Doppler/CF Echocardiography Routine S/P AVR Chronic diastolic heart failure (HCC) Expected: 02/08/2026, Expires: 05/10/2026 documented as of this encounter Visit Diagnoses Diagnosis S/P AVR- Primary Postoperative atrial fibrillation (HCC) Labile hypertension Chronic diastolic heart failure (HCC) Chronic diastolic heart failure Palpitations documented in this encounter Discontinued Medications Medication Sig Discontinue Reason Start Date End Da te fluticasone furoate-vilanteroL (BREO ELLIPTA) 200-25 mcg/dose diskus inhaler Inhale 1 puff daily 11/14/2017 02/08/2025 cetirizine (ZyrTEC) 10 mg tablet Take 1 tablet (10 mg total) by mouth daily No longer taking - Do not display on AVS 02/08/2025 cyanocobalamin (Vitamin B-12) 1,000 mcg/mL injection Inject 1 mL (1,000 mcg total) into the muscle as instructed every 30 (thirty) days No longer taking - Do not display on AVS 11/20/2017 02/08/2025 documented as of this encounter Historical Medications * This list may reflect changes made after this encounter. Medication Sig Dispense Quantity Refills Last Filled Start D ate End Date Treleamanda Ellipta 200-62.5-25 mcg inhaler 12/28/2024 added in this encounter Care Teams Base Engineer Relationship Specialty Start Date End Date Jessie Acosta MD PCP - General Family Practice 09/03/18 Greg Brandon DO [address] [place] [id number] Medical Oncologist/Frozen Food Department Manager Hematology and Oncology 06/03/19 documented as of this encounter
== END 2025-02-08 11:38 | disposition home or self-care (01) ==
PROVIDERS: PCP Family Medicine; Referring Provider Family Medicine; Visit Provider Internal Medicine Medical Oncology
DX: D50.9 Iron deficiency anemia, unspecified (principal)
CPT/HCPCS: 36415; 85025

== ENCOUNTER 2025-04-27 12:36 | Outpatient (CLI) | payer MEDICARE, SELFPAY ==
--- OUTSIDE RECORDS SUMMARY | 2025-04-27 12:42 | XMS_ITS | Encounter Summary ---
Author Organization [facility] Address [address] [facility] [address] [place] [address] Care Team Providers Care Sole Buffer Name Role Phone Benjamin Soto Primary Care Provider [phone] Jessie Acosta MD Primary Care Provider Greg Brandon DO Unavailable [phone] Encounter Details Date Type Department Care Team (Late st Contact Info) Description 11/19/2016 Orders Only [facility] ProviderPresley MD [address] [place] [address] Social History Tobacco Use Types Packs/Day Years Used Date Smoking Tobacco: Never Assessed Comments Unknown Sex and Gender Information Value Date Recorded Sex Assigned at Not on file 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
--- OUTSIDE RECORDS SUMMARY | 2025-04-27 12:42 | XMS_ITS | Referral Summary ---
Author Organization [facility] [address] [facility] [address] Address [address] [place] [address] Care Team Providers Care Analog Circuit Designer Name Role Phone Jessie Acosta MD Primary Care Provider Greg Brandon DO Unavailable [phone] Encounters Date Type Department Care Team Description 02/17/2025 Documentation [facility] Oncology [address] [facility] [address] [place] [address] Greg Brandon DO 02/17/2025 Telephone [facility] Oncology [address] [facility] [address] [place] [address] Tisha Lang CMA 02/08/2025 11:00 AM CDT Office Visit [facility] Cardiology [address] [facility] [address] [place] [address] Chica Branch MD S/P AVR (Primary Dx); Postoperative atrial fibrillation (HCC); Labile hypertension; Chronic diastolic heart failure (HCC); Palpitations from Last 3 Months Allergies Active Allergy [...] 2 (two) times a day 9 Active acetaminophen (TYLENOL) 500 mg tablet Take 1 tablet (500 mg total) by mouth every 6 (six) hours as needed for pain Active cholecalciferol (VITAMIN D-3) 50,000 unit capsule TAKE 1 CAPSULE BY MOUTH WEEKLY 0 Active lisinopriL (PRINIVIL,ZESTR [place]) 5 mg tablet 1 Active loperamide (IMODIUM) 2 mg capsule Take 1 capsule (2 mg total) by mouth 4 (four) times a day as needed for diarrhea Active loratadine 10 mg capsule Take by mouth Activ e Trelegy Ellipta 200-62.5-25 mcg inhaler 5 Active Active Problems Problem Noted Date Diagnosed [...] (04/23/2019): Added automatically from request for surgery [id number] Dyspnea on exertion 11/17/2018 01/08/20 22 Immunizations [...] on file 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 N/A: Heart [employer] 11/04/2020 [id number] / [id number] / [facility] Drill-Free; Maxdrive Od2.3 Mm L11 Mm Self Retaining; Lock Sternal - [id number] Implanted:Qty: 4 on 05/01/2019 by Doc Schneider MD at [facility] N/A: [place] [facility] / / [facility] Titanium 1.8mm 4 Hole Sternal Straight Plate Bone Midline - [id number] Implanted:Qty: 1 on 05/01/2019 by Doc Schneider MD at [facility] N/A: [facility] [facility] / / Insurance [facility] MEDICARE ADVANTAGE [facility] MEDIC[facility] Address: [facility] [address] [place] [address] [facility] MEDICARE ADVANTAGE [facility] MEDIC[facility] Address: [address] [address] [place] [address] MEDICARE FOR[facility]LY [facility] MEDICARE SUPPLEMENT INSURANCE [facility] MEDICARE ADVANTAGE [facility] MEDIC[facility] Address: [address] [address] [place] [address] Advance Directives For more information, please contact: [phone] * Full Code (Latest Code Status on File) Date Activated Date Inactivated Comments 05/01/2019 3:47 PM 05/07/2019 7:53 PM Care Teams Analog Circuit Designer Relationship Specialty Start Date End Date Jessie Acosta MD PCP - General Family Practice 09/03/18 Greg Brandon DO [address] [place] [id number] Medical Oncologist/Head Field Hockey Coach Hematology and Oncology 06/03/19
--- OUTSIDE RECORDS SUMMARY | 2025-04-27 12:42 | XMS_ITS | Clinical Summary ---
Author Organization [facility] [address] Address [address] [place] [address] Care Team Providers Care Retail Management Keyholder Name Role Phone Jessie Acosta MD Primary Care Provider Greg Brandon DO Unavailable [phone] Allergies Active Allergy Reactions Criticality Noted Date [...] (04/23/2019): Added automatically from request for surgery [id number] Dyspnea on exertion 11/17/2018 01/08/20 22 Encounters Date Type Department Care Team Description 02/17/2025 Documentation [facility] Oncology [address] [place] [address] [address] [place] [address] Greg Brandon DO 02/17/2025 Telephone [facility] Oncology [address] [place] [address] [address] [place] [phone] Tisha Lang CMA 02/08/2025 11:00 AM CDT Office Visit [facility] Cardiology [address] [facility] [[email or web address] [address] [place] [address] Chica Branch MD S/P AVR (Primary Dx); Postoperative atrial fibrillation (HCC); Labile hypertension; Chronic diastolic heart failure (HCC); Palpitations from Last 3 Months Immunizations Immunization Administration [...] Used Date Smoking Tobacco: Former Cigarettes 2 1986 Smokeless Tobacco: Never Tobacco Cessation:Counseling Given: [...] on file Legal Sex Female 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 Gender Identity Not on file Sexual Orientation Not on file Occupation Industry 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 Job End Date 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 N/A: Heart Bob Lifesciences 11/04/2020 [id number] / [id number] / [facility] -023-11 Drill-Free; Maxdrive Od2.3 Mm L11 Mm Self Retaining; Lock Sternal - [id number] Implanted:Qty: 4 on 05/01/2019 by Doc Schneider MD at [facility] N/A: Sternum [facility] 24-023-11 / / [facility] 24-025-48 Titanium 1.8mm 4 Hole Sternal Straight Plate Bone Midline - [id number] Implanted:Qty: 1 on 05/01/2019 by Doc Schneider MD at [facility] N/A: Sternum [facility] 24-025-48 / / Insurance [facility] MEDICARE Address: [place] [address] UHC MEDICARE ADVANTAGE MEDICARE CIGNA MEDICARE SUPPLEMENT INSURANCE [facility] MEDICARE ADVANTAGE Advance Directives For more information, please contact: [phone] * Full Code (Latest Code Status on File) Date Activated Date Inactivated Comments 05/01/2019 3:47 PM 05/07/2019 7:53 PM Care Teams Retail Management Keyholder Relationship Specialty Start Date End Date Jessie Acosta MD PCP - General Family Practice 09/03/18 Greg Brandon DO [address] [place] [address] Medical Oncologist/Account Manager [employer] Hematology and Oncology 06/03/19
--- OUTSIDE RECORDS SUMMARY | 2025-04-27 12:42 | XMS_ITS | Clinical Summary ---
Author Organization [facility] [employer] Address [address] [place] [address] Care Team Providers Care Bait Digger Name Role Phone Jessie Acosta MD Primary Care Provider Source Comments [facility] [employer],non-owned Affiliates and Associated Physician Practices is amultiple site organization consisting of ambulatory clinics and hospital sitesin [place], [place], [place] and [place]. This disclosure is being madepursuant to the Care Everywhere program and may not contain all information available regarding this patient. 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 Gender Identity Not on file Sexual Orientation [...] 1:50 PM CDT Height 160 cm (5' 3) 03/31/2019 1:50 PM CDT Body Mass Index 32.77 03/31/2019 1:50 PM CDT Plan of Treatment Health Maintenance Due Date Last Done Comments BONE DENSITY TESTING 1941 DTAP/TDAP/TD VACCINES (1 - Tdap) 1960 PNEUMOCOCCAL VACCINE 50+ (1 of 1 - PCV) 1991 ZOSTER VACCINE (1 of 2) 1991 Respiratory Syncytial Virus (RSV) Vaccine Pt: or over 60 yrs (1 - 1-dose 75+ series) 2016 COVID-19 VACCINE ( - 2023-2 5 season) 2024 DEPRESSION SCREENING 10/14/2024 INFLUENZA VACCINE (#1) 2025 HEPATITIS B VACCINE Aged Out No [...] complete this topic Insurance MEDICARE Care Teams Bait Digger Relationship Specialty Start Date End Date Jessie Acosta MD [address] [place] [address] PCP - General 03/31/19
--- OUTSIDE RECORDS SUMMARY | 2025-04-27 12:42 | XMS_ITS | Clinical Summary ---
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 Not [...] to technical error Height 157.5 cm (5' 2) 07/18/2023 2:34 PM CDT BMI incorrect due to technical error Body Mass Index 24.97 07/18/2023 2:34 PM CDT Plan of Treatment Health Maintenance Due Date Last Done Comments DEXA Bone Density 1940 Hepatitis C Virus (HCV) Screening 1940 TdaP Immunization 1941 Respiratory Syncytial Virus (RSV) Immunization (Adult) (1 - 1-dose 75+ series) 2016 Zoster Immunization (2 of 2) 07/29/2018 06/03/2018 SARS-COV-2 Immunization ( season) 2024 06/27/2022, 01/23/2022, 08/08/2021, Additional history exists Influenza Immunization (#1) 06/14/202506/14, 07/24/2021, 06/28/2020, Additional history exists Pneumococcal Immunization (50+ years) Completed 07/17/2015, 07/26/2008 Pneumococcal Immunization Combined Discontinued 07/17/2015, 07/26/2008 DTaP/Tdap/Td Immunization Discontinued 10/14/2016, Hepatitis B Immunization Aged Out No longer eligible based on patient's age to complete this topic Human Papillomavirus (HPV) Immunization Aged Out No longer eligible based on patient's age to complete this topic Meningococcal Immunization (ACWY) Aged Out No longer eligible based on patient's age to complete this topic Rotavirus Immunization Aged Out No lo nger eligible based on patient's age to complete this topic Insurance MEDICARE [facility] Advance Directives * Full Code (Latest Code Status on File) Date Activated Date Inactivated Comments 02/06/2022 11:05 AM Care Teams Business Segment Manager Relationship Specialty Start Date End Date Jessie Acosta MD PCP - General Family Medicine 12/05/17 Moose Miller MD [address] [place] [address] Consulting Physician Neurology 08/17/22
[2025-04-27 15:02] LABS: Hematocrit 43.3 % (37.0-47.0); Hemoglobin 13.3 g/dL (12.0-15.0); Immature Granulocyte Percent A 0.3 % (0-0.5); Lymphocytes Absolute Auto 1.32 K/mm3 (0.9-3.2); Mean Corpuscular HGB Conc 30.7 g/dl (32-36); Mean Corpuscular Hemoglobin 28.2 pg (26-34); Mean Corpuscular Volume 91.9 fl (80-100); Nucleated Red Blood Cells Absolute Auto 0.000 K/mm3 (0.0-0.012); Nucleated Red Blood Cells Perc 0.0 % (0.0-0.2); Platelet Count Result 280 k/mm3 (150-375); Red Blood Count 4.71 M/mm3 (4.2-5.4); White Blood Count 9.2 K/mm3 (4.5-10.0)
[2025-04-27 15:06] LABS: Iron 47 ug/dL (37-170)
[2025-04-27 15:08] LABS: Alanine Aminotransferase 13 U/L (6-35); Albumin Level 4.0 g/dL (3.5-5.1); Alkaline Phosphatase 68 U/L (38-126); Anion Gap 9 mmol/L (4-12); Aspartate Amino Transferase 36 U/L (14-36); Bilirubin,Total 0.4 mg/dL (0.2-1.3); Blood Urea Nitrogen 9 mg/dL (7-17); Calcium 9.4 mg/dL (8.4-10.2); Carbon Dioxide 28 mmol/L (22-30); Chloride 104 mmol/L (98-107); Estimated Glomerular Filt Rate > 60; Glucose 120 mg/dL (65-110); Potassium 3.6 mmol/L (3.4-5.0); Sodium 141 mmol/L (137-145); Total Protein 8.1 g/dL (6.3-8.2)
[2025-04-27 15:16] LABS: Percent Iron Saturation 14 % (20-50)
[2025-04-27 15:17] LABS: Hemoglobin A1C 5.9 % (<5.7)
[2025-04-27 15:48] LABS: Ferritin 22.20 ng/mL (11.1-264)
[2025-04-27 16:20] LABS: Vitamin B12 733.0 pg/mL (239-931)
== END 2025-04-27 12:37 | disposition home or self-care (01) ==
LOC: ANHGOSHLAB 12:38
PROVIDERS: PCP Family Medicine; Visit Provider Family Medicine
DX: D64.9 Anemia, unspecified (principal); I10 Essential (primary) hypertension; R73.03 Prediabetes
CPT/HCPCS: 36415; 80053; 82607; 82728; 82746; 83036; 83540; 83550; 85025

== ENCOUNTER 2025-05-14 11:24 | Outpatient (CLI) | payer MEDICARE, SELFPAY ==
--- OUTSIDE RECORDS SUMMARY | 2025-05-14 11:27 | XMS_ITS | Clinical Summary ---
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
--- OUTSIDE RECORDS SUMMARY | 2025-05-14 11:27 | XMS_ITS | Clinical Summary ---
Author Organization [facility] [employer] Address [address] [facility] [place] [address] Care Team Providers Care Gas Well Drilling Manager Name Role Phone Jessie Acosta MD Primary Care Provider Source Comments [facility] [employer],non-owned Affiliates and Associated Physician Practices is amultiple site organization consisting of ambulatory clinics and hospital sitesin [place], [place], [place] and [place]. This disclosure is being madepursuant to the Care Everywhere program and may not contain all information available regarding this patient. 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
--- OUTSIDE RECORDS SUMMARY | 2025-05-14 11:27 | XMS_ITS | Clinical Summary ---
Author Organization [facility] [address] Address [address] [place] [address] Care Team Providers Care Radio Technician Name Role Phone Jessie Acosta MD Primary Care Provider Greg Brandon DO Unavailable [phone] Allergies Active Allergy Reactions Criticality Noted Date [...] (04/23/2019): Added automatically from request for surgery [id number] Dyspnea on exertion 11/17/2018 01/08/20 22 Encounters Date Type Department Care Team Description 04/28/2025 Orders Only [facility] Oncology [address] [place] [address] [address] [place] [address] ProviderPresley MD 02/17/2025 Documentation [facility] Oncology [address] [place] [address] [address] [place] [address] Greg Brandon DO 02/17/2025 Telephone [facility] Oncology [address] [place] [address] [address] [place] [address] Tisha Lang CMA from Last 3 Months Immunizations Immunization Administration [...] Comments Hypertension COPD (chronic obstructive pulmonary disease) Aortic stenosis Heart murmur Cataract Syncope Dyspnea on exertion Vertigo GERD (gastroesophageal reflux disease) Irritable bowel syndrome Anemia History of transfusion 03/14/2019 Depression Anxiety 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 Asthma Family History Medical History Relation Name [...] on file Legal Sex Female 9: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 Gender Identity Not on file Sexual Orientation Not on file Occupation Industry 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 Job End Date 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 [...] 07/19/2015, 07/14 Medical Devices Implanted Type Area Weapons Mechanic Device Identifier Shelf Expiration Date Model / Serial / Lot Bob Lifesciences [id number] Inspiris Resilia Leaflet Sewing Ring 21mm Valve Aortic Bovine - [id number] - [id number] Implanted:Qty: 1 on 05/01/2019 by Doc Schneider MD at [facility] N/A: Heart Bob [employer]esciences 11/04/2020 [id number] / [id number] / [employer] 24-023-11 Drill-Free; Maxdrive Od2.3 Mm L11 Mm Self Retaining; Lock Sternal - [id number] Implanted:Qty: 4 on 05/01/2019 by Doc Schneider MD at [facility] N/A: Sternum [employer] 24-023-11 / / [employer] -025-48 Titanium 1.8mm 4 Hole Sternal Straight Plate Bone Midline - [id number] Implanted:Qty: 1 on 05/01/2019 by Doc Schneider MD at [facility] N/A: Sternum [employer] 24-025-48 / / Procedures Procedure Name Priority Date/Time Associated Diagnosis Comments CMP Routine 04/27/2025 8:59 AM CDT from Last 3 Months Results * CMP (04/27/2025 8:59 AM CDT) us Historical Provider LAB BLOOD ORDERABLES Kerline l Result from Last 3 Months Insurance UHC MEDICARE ADVANTAGE [facility] MEDICARE SUPPLEMENT INSURANCE [facility] MEDICARE ADVANTAGE Advance Directives For more information, please contact: [phone] * Full Code (Latest Code Status on File) Date Activated Date Inactivated Comments 05/01/2019 3:47 PM 05/07/2019 7:53 PM Care Teams Radio Technician Relationship Specialty Start Date End Date Jessie Acosta MD PCP - General Family Practice 09/03/18 Greg Brandon DO [address] [place] [address] Medical Oncologist/Stroboroma Operator Hematology and Oncology 06/03/19
--- OUTSIDE RECORDS SUMMARY | 2025-05-14 11:27 | XMS_ITS | Referral Summary ---
Author Organization [facility] [address] Address [address] [place] [address] Care Team Providers Care Analytics Manager Name Role Phone Jessie Acosta MD Primary Care Provider Greg Bradnon DO Unavailable [phone] Encounters Date Type Department Care Team Description 04/28/2025 Orders Only [facility] Oncology [address] [place] [address] [address] [place] [address] ProviderPresley MD 02/17/2025 Documentation [facility] Oncology [address] [place] [address] [address] [place] [address] Greg Brandon DO 02/17/2025 Telephone [facility] Oncology [address] [place] [address] [address] [place] [address] Tisha Lang, POWDER BLENDER AND POURER from Last 3 Months Allergies Active Allergy [...] (04/23/2019): Added automatically from request for surgery [id number] Dyspnea on exertion 11/17/2018 01/08/20 22 Immunizations [...] on file Legal Sex Female 9: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 Gender Identity Not on file Sexual Orientation Not on file Occupation Industry 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 Job End Date 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 [...] on file Medical Devices Implanted Type Area Box Storage Worker Device Identifier Shelf Expiration Date Model / Serial / Lot Bob Lifesciences [id number] Inspiris Resilia Leaflet Sewing Ring 21mm Valve Aortic Bovine - [id number] - [id number] Implanted:Qty: 1 on 05/01/2019 by Doc Schneider MD at [facility] N/A: Heart Bob Lif[employer]iences 11/04/2020 [id number] / [id number] / [facility] --11 Drill-Free; Maxdrive Od2.3 Mm L11 Mm Self Retaining; Lock Sternal - [id number] Implanted:Qty: 4 on 05/01/2019 by Doc Schneider MD at [facility] N/A: Sternum [facility] -11 / / [facility] -48 Titanium 1.8mm 4 Hole Sternal Straight Plate Bone Midline - [id number] Implanted:Qty: 1 on 05/01/2019 by Doc Schneider MD at [facility] N/A: Sternum [facility] -025-48 / / Procedures Procedure Name Priority Date/Time Associated Diagnosis Comments CMP Routine 04/27/2025 8:59 AM CDT from Last 3 Months Results * CMP (04/27/2025 8:59 AM CDT) us Historical Provider LAB BLOOD ORDERABLES Kerline l Result from Last 3 Months Insurance UHC MEDICARE ADVANTAGE [facility] Address: [address] [address] UHC MEDICARE ADVANTAGE [facility] MEDICARE Address: [address] [address] [place] [address] MEDICARE [facility] MEDICARE SUPPLEMENT INSURANCE [facility] MEDICARE ADVANTAGE [facility]ICARE Address: [facility] [address] [place] [address] Advance Directives For more information, please contact: [phone] * Full Code (Latest Code Status on File) Date Activated Date Inactivated Comments 05/01/2019 3:47 PM 05/07/2019 7:53 PM Care Teams Analytics Manager Relationship Specialty Start Date End Date Jessie Acosta MD PCP - General Family Practice 09/03/18 Greg Brandon DO [address] [place] [address] Medical Oncologist/Supply Assistant Hematology and Oncology 06/03/19
--- OUTSIDE RECORDS SUMMARY | 2025-05-14 11:27 | XMS_ITS | Encounter Summary ---
Author Organization [facility] Address [address] [facility] [address] [place] [address] Care Team Providers Care Cut Order Hand Name Role Phone Benjamin Soto Primary Care Provider [phone] Jessie Acosta MD Primary Care Provider Greg Brandon DO Unavailable [phone] Encounter Details Date Type Department Care Team (Late st Contact Info) Description 11/19/2016 Orders Only [facility] ProviderPresley MD [address] [place] [address] Social History Tobacco Use Types Packs/Day Years Used Date Smoking Tobacco: Never Assessed Comments Unknown Sex and Gender Information Value Date Recorded Sex Assigned at Not on file Legal Sex Female 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
[2025-05-14 14:46] LABS: Hematocrit 41.2 % (37.0-47.0); Hemoglobin 12.9 g/dL (12.0-15.0); Immature Granulocyte Percent A 0.5 % (0-0.5); Immature Reticulocyte Fraction 14.2 % (3.0-15.9); Lymphocytes Absolute Auto 1.27 K/mm3 (0.9-3.2); Mean Corpuscular HGB Conc 31.3 g/dl (32-36); Mean Corpuscular Hemoglobin 29.2 pg (26-34); Mean Corpuscular Volume 93.2 fl (80-100); Nucleated Red Blood Cells Absolute Auto 0.000 K/mm3 (0.0-0.012); Nucleated Red Blood Cells Perc 0.0 % (0.0-0.2); Platelet Count Result 227 k/mm3 (150-375); Red Blood Count 4.42 M/mm3 (4.2-5.4); Reticulocyte Hemoglobin Conten 32.7 pg (28.2-36.6); Reticulocytes Absolute 0.06 10^6/uL (0.02-0.10); White Blood Count 6.3 K/mm3 (4.5-10.0)
[2025-05-14 15:19] LABS: Iron 32 ug/dL (37-170)
[2025-05-14 15:29] LABS: Percent Iron Saturation 10 % (20-50)
[2025-05-14 16:01] LABS: Ferritin 22.90 ng/mL (11.1-264)
== END 2025-05-14 11:25 | disposition home or self-care (01) ==
LOC: ANHGOSHLAB 11:25
PROVIDERS: PCP Family Medicine; Visit Provider Internal Medicine Medical Oncology
DX: D50.9 Iron deficiency anemia, unspecified (principal)
CPT/HCPCS: 36415; 82728; 83540; 83550; 85025; 85046

== ENCOUNTER 2025-08-20 13:04 | Outpatient (CLI) | payer MEDICARE, SELFPAY ==
--- OUTSIDE RECORDS SUMMARY | 2025-08-20 13:11 | XMS_ITS | Encounter Summary ---
Author Organization [facility] Address [address] [facility] [address] [place] [address] Care Team Providers Care Staff Rn Name Role Phone Benjamin Soto Primary Care Provider [phone] Jessie Acosta MD Primary Care Provider Greg Brandon DO Unavailable [phone] Encounter Details Date Type Department Care Team (Late st Contact Info) Description 11/19/2016 Orders Only [facility] ProviderPresley MD [address] [place] [address] Social History Tobacco Use Types Packs/Day Years Used Date Smoking Tobacco: Never Assessed Comments Unknown Sex and Gender Information Value Date Recorded Sex Assigned at Not on file 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
--- OUTSIDE RECORDS SUMMARY | 2025-08-20 13:11 | XMS_ITS | Clinical Summary ---
Author Organization [facility] [employer] Address [address] [facility] [place] [address] Care Team Providers Care Principal Database Developer Name Role Phone Jessie Acosta MD Primary Care Provider Source Comments [facility] [employer],non-owned Affiliates and Associated Physician Practices is amultiple site organization consisting of ambulatory clinics and hospital sitesin [place], [place], [place] and [place]. This disclosure is being madepursuant to the Care Everywhere program and may not contain all information available regarding this patient. 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
--- OUTSIDE RECORDS SUMMARY | 2025-08-20 13:11 | XMS_ITS | Clinical Summary ---
Author Organization [facility] Address [address], 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 [...] Virus (HCV) Screening 1940 TdaP Immunization 1940 Medicare Initial AWV [id number] 11/14/2007 Respiratory Syncytial Virus (RSV) Immunization (Adult) (1 - 1-dose 75+ series) 2016 Zoster Immunization (2 of 2) 07/29/2018 06/03/2018 Influenza Immunization (#1) 06/14/202506/14, 07/24/2021, 06/28/2020, Additional history exists SARS-COV-2 Immunization (2024- season) 2025 06/27/2022, 01/23/2022, 08/08/2021, Additional history exists Pneumococcal [...] to complete this topic Insurance [facility]IC[facility] Advance Directives * Full Code (Latest Code Status on File) Date Activated Date Inactivated Comments 02/06/2022 11:05 AM Care Teams Statue Carver Relationship Specialty Start Date End Date Jessie Acosta MD PCP - General Family Medicine 12/05/17 Moose Miller MD [address] [place] [address] Consulting Physician Neurology 08/17/22
--- OUTSIDE RECORDS SUMMARY | 2025-08-20 13:11 | XMS_ITS | Clinical Summary ---
Author Organization [facility] [place] [address] Address [address] [place] [address] Care Team Providers Care Diploma Maker Name Role Phone Jessie Acosta MD Primary Care Provider Greg Brandon DO Unavailable [phone] Allergies Active Allergy Reactions Criticality Noted Date [...] a day as needed for diarrhea Active Trelegy Ellipta 200-62.5-25 mcg inhaler 5 Active azelastine (ASTELIN) 137 mcg (0.1 %) nasal spray 5 Active fluticasone propionate (FLONASE) 50 mcg/actuation nasal spray USE 2 SPRAY(S) IN EACH NOSTRIL ONCE DAILY 5 Active loratadine (CLARITIN) 10 mg tablet Take 1 tablet (10 mg total) by mouth daily 5 Active Active Problems Problem Noted Date [...] (04/23/2019): Added automatically from request for surgery [id number] Dyspnea on exertion 11/17/2018 01/08/20 22 Encounters Date Type Department Care Team Description 05/21/2025 2:45 PM CDT Office Visit [facility] [address] [place] [address] [address] [place] [address] Greg Brandon, Iron deficiency anemia, [...] on file Legal Sex Female 9:43 AM MEDICAL RECORDS ADMINISTRATOR Gender Identity Not on file Sexual Orientation Not on file Occupation Industry 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 Job End Date 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 Not on fi le Last Filed Vital Signs Vital Sign Reading Time Taken Comments Blood Pressure 129/83 05/21/2025 2:57 PM CDT Pulse 85 05/21/2025 2:57 PM CDT Temperature 36.6 C (97.8 F) 05/21/2025 2:57 PM CDT Respiratory Rate 18 05/21/2025 2:57 PM CDT Oxygen Saturation 90% 05/21/2025 2:5 7 PM CDT Inhaled Oxygen Concentration - - Weight 51.3 kg (113 lb 1.5 oz) 05/21/20 25 2:57 PM CDT with shoes Height 160 cm (5' 3) 02/08/2025 11:13 AM CDT Body Mass Index 20.03 02/08/2025 11:13 AM CDT Plan of Treatment Health Maintenance Due Date Last Done Comments Depression Screening 1941 Fall Risk Assessment 1941 Osteoporosis Screening-Bone Density Scan 1941 Hepatitis B Screening 1959 Well Visit 65+ 2006 DTaP/Tdap/Td Vaccine (1 - Tdap) 10/15/2016 7, 11/05/2014 Zoster Vaccine (2 of 2) 07/30/2018 06/04/2018 Covid-19 Vaccine (3 - season) 06/14/202511/2020, 11/10/2020 Influenza Vaccine (#1) 2025 06/28/2020, 2017 Pneumococcal vaccine 65+ Completed 07/19/2015, 07/14 Medical Devices Implanted Type Area Bottle Capping Machine Operator Device Identifier Shelf Expiration Date Model / Serial / Lot [employer] [id number] Inspiris Resilia Leaflet Sewing Ring 21mm Valve Aortic Bovine - [id number] - [id number] Implanted:Qty: 1 on 05/01/2019 by Doc Schneider MD at [facility] N/A: Heart [employer] 11/04/2020 [id number] / [id number] / [facility] - Drill-Free; Maxdrive Od2.3 Mm L11 Mm Self Retaining; Lock Sternal - [id number] Implanted:Qty: 4 on 05/01/2019 by Doc Schneider MD at [facility] N/A: [place] [facility] [id number] / / [facility] - Titanium 1.8mm 4 Hole Sternal Straight Plate Bone Midline - [id number] Implanted:Qty: 1 on 05/01/2019 by Doc Schneider MD at [facility] N/A: [facility] -48 / / Insurance [facility] MEDICARE [facility]ANT[facility] Address: [id number] [place] [address] UHC MEDICARE ADVANTAGE MEDICARE [id number] MEDICARE SUPPLEMENT INSURANCE [facility] MEDICARE [facility] Address: [address] [address] [place] [address] Advance Directives For more information, please contact: [phone] * Full Code (Latest Code Status on File) Date Activated Date Inactivated Comments 05/01/2019 3:47 PM 05/07/2019 7:53 PM Care Teams Diploma Maker Relationship Specialty Start Date End Date Jessie Acosta MD PCP - General Family Practice 09/03/18 Greg Brandon DO [address] [place] [id number] Medical Oncologist/Mine Exploration Engineer Hematology and Oncology 06/03/19
[2025-08-20 17:42] LABS: Hematocrit 36.2 % (37.0-47.0); Hemoglobin 11.2 g/dL (12.0-15.0); Immature Granulocyte Percent A 0.4 % (0-0.5); Lymphocytes Absolute Auto 1.32 K/mm3 (0.9-3.2); Mean Corpuscular HGB Conc 30.9 g/dl (32-36); Mean Corpuscular Hemoglobin 28.1 pg (26-34); Mean Corpuscular Volume 90.7 fl (80-100); Nucleated Red Blood Cells Absolute Auto 0.000 K/mm3 (0.0-0.012); Nucleated Red Blood Cells Perc 0.0 % (0.0-0.2); Platelet Count Result 263 k/mm3 (150-375); Red Blood Count 3.99 M/mm3 (4.2-5.4); White Blood Count 8.0 K/mm3 (4.5-10.0)
[2025-08-20 17:50] LABS: Iron 30 ug/dL (37-170)
[2025-08-20 17:59] LABS: Percent Iron Saturation 7 % (20-50)
[2025-08-20 18:31] LABS: Ferritin 6.37 ng/mL (11.1-264)
== END 2025-08-20 13:05 | disposition home or self-care (01) ==
LOC: ANHGOSHLAB 13:05
PROVIDERS: PCP Family Medicine; Visit Provider Internal Medicine Medical Oncology
DX: D50.9 Iron deficiency anemia, unspecified (principal)
CPT/HCPCS: 36415; 82728; 83540; 83550; 85025

== ENCOUNTER 2025-10-04 15:08 | Outpatient (CLI) | payer MEDICARE, SELFPAY ==
--- NOTE | ~2025-10-04 | XR_ITS ---
XR chest 2V 10/04/2025 15:43 Indication: Hypoxemia. No edema. COPD. Procedure: 2 view chest Comparison: Comparison to multiple prior studies sequentially, with oldest reviewed study dated 08/09/2008. 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 There is patchy bilateral airspace disease. Small pleural effusions. No pneumothorax. No acute osseous abnormality. There are cholecystectomy clips. Impression: 1: Patchy diffuse bilateral airspace disease which may represent edema or pneumonia. 2: Small pleural effusions. Reviewed, dictated and finalized at location O. ICE DESK AGENT Impression: 1: Patchy diffuse bilateral airspace disease which may represent edema or pneum onia. 2: Small pleural effusions.
== END 2025-10-04 15:09 | disposition home or self-care (01) ==
LOC: GOSHIMG 15:09
PROVIDERS: PCP Family Medicine; Visit Provider Family Medicine
DX: R09.02 Hypoxemia (principal); J90 Pleural effusion, not elsewhere classified; R91.8 Other nonspecific abnormal finding of lung field
CPT/HCPCS: 71046

== ENCOUNTER 2025-10-04 15:10 | Outpatient (CLI) | payer MEDICARE, SELFPAY ==
--- OUTSIDE RECORDS SUMMARY | 2025-10-04 16:49 | XMS_ITS | Clinical Summary ---
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[employer] Not on file Not [...] complete this topic Human Papillomavirus (HPV) Immunization (No Doses Required) Completed Meningococcal Immunization (ACWY) Aged Out No longer eligible based on patient's age to complete this topic Rotavirus Immunization Aged Out No lo nger eligible based on patient's age to complete this topic [id number] Advance Directives * Full Code (Latest Code Status on File) Date Activated Date Inactivated Comments 02/06/2022 11:05 AM Care Teams Charge Master Specialist Relationship Specialty Start Date End Date Jessie Acosta MD PCP - General Family Medicine 12/05/17 Moose Miller MD [address] [place] [id number] Consulting Physician Neurology 08/17/22
--- OUTSIDE RECORDS SUMMARY | 2025-10-04 16:49 | XMS_ITS | Clinical Summary ---
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 Active zolpidem (AMBIEN) 10 mg tabletIndicatio ns:Sleep-Onset Insomnia Take 1 tablet (10 mg total) by mouth nightly as needed Active albuterol HFA (PROVENTIL HFA,VENTOLIN HFA,PROAIR HFA) 90 mcg/actuation inhaler Inhale 1 puff every 4 (four) hours as needed Active esomeprazole DR (NexIUM) 20 mg capsule Take 1 capsule (20 mg total) by mouth daily before breakfast Active aspirin 81 mg enteric coated tablet Take 1 tablet (81 mg total) by mouth daily 30 tablet 11 05/08/20 026 Active acetaminophen (TYLENOL) 500 mg tablet Take 1 tablet (500 mg total) by mouth every 6 (six) hours as needed for pain Active lisinopriL (PRINIVIL,ZESTR IL) 5 mg tablet Take 1 tablet (5 mg total) by mouth daily 10/24/19 21 Active loperamide (IMODIUM) 2 mg capsule Take 1 capsule (2 mg total) by mouth 4 (four) times a day as needed for diarrhea Active Trelegy Ellipta 200-62.5-25 mcg inhaler Inhale 1 puff daily 12/29/19 25 Active azelastine (ASTELIN) 137 mcg (0.1 %) nasal spray Administer 1 spray into each nostril daily as needed for rhinitis 05/04/20 25 Active fluticasone propionate (FLONASE) 50 mcg/actuation nasal spray Administer 1 spray into each nostril daily as needed for allergies 05/10/20 25 Active loratadine (CLARITIN) 10 mg tablet Take 1 tablet (10 mg total) by mouth daily 03/01/20 25 Active cholecalciferol (VITAMIN D-3) 2000 unit tablet Take 1 tablet (2,000 Units total) by mouth nightly Active benzonatate (TESSALON) 100 mg capsuleIndicati ons:Cough Take 1 capsule (100 mg total) by mouth 3 (three) times a day as needed for cough 20 capsule 09/24/20 25 Active guaiFENesin ER (MUCINEX) 600 mg 12 hr tablet Take 1 tablet (600 mg total) by mouth 2 (two) times a day for 7 days 14 tablet 09/24/20 25 Active predniSONE (DELTASONE) 10 mg tabletIndicatio ns:COPD Exacerbation 40 mg daily for 3 days, 30 mg daily for 3 days, 20 mg daily for 3 days, 10 mg daily for 3 days 30 tablet 09/24/20 25 Active cefuroxime (CEFTIN) 500 mg tabletIndicatio ns:Pneumonia, Community Acquired Take 1 tablet (500 mg total) by mouth 2 (two) times a day 4 tablet 09/25/20 25 Active docusate sodium (COLACE) 100 mg capsuleIndicati ons:constipatio n Take 1 capsule (100 mg total) by mouth 2 (two) times a day 05/07/20 025 Discontinued cholecalciferol (VITAMIN D-3) 50,000 unit capsule TAKE 1 CAPSULE BY MOUTH WEEKLY 09/27/20 025 Discontinued(A lternate therapy) cholecalciferol (VITAMIN D-3) 3,000 unit tablet Take 1 tablet (3,000 Units total) by mouth nightly 025 Discontinued(A lternate therapy) Active Problems Problem Noted Date Diagnosed Date Multifocal pneumonia 09/24/2025 Hypoxia 09/21/2025 Assessment & Plan (09/23/2025 3:16 PM RESEARCH/PROGRAM DIRECTOR): Multifocal pneumonia Suspected COPD exacerbation. Hx of COPD/pulmonary hypertension/iron-deficiency anemia Shortness of the breath is likely secondary to Multifocal pneumonia, COPD exacerbation could be congestive heart failure. Hx of COPD/pulmonary hypertension/iron-deficiency anemia -Patient was started on Rocephin and azithromycin, day 3. Will continue antibiotic for total 5 days. If patient does well will switch to p.o. antibiotic from tomorrow Continue bronchodilator DuoNeb, Symbicort Pneumo antigen is negative. Ordered Legionella and mycoplasma sputum culture and blood culture blood culture is so far negative. -Continuous monitoring SpO2 with telemetry -Continue oxygen. Patient is requiring 1 L oxygen. -Wean O2 for an SpO2 greater than or equal to 92% -Solu-Medrol with 40 mg q.day -Check urine strep -Viral panel negative -Anemia stable HFpEF Previous echo on 2022 showed normal ejection fraction with grade 1 diastolic dysfunction. Mildly elevated pro BNP Repeat echocardiogram Strict I&O Repeat echocardiogram showed diastolic dysfunction. Systolic function is within normal limits. I will give 1 dose of Lasix Hx of aortic stenosis s/p AVR HTN Continue aspirin Continue lisinopril Insomnia Patient stated that Remeron did not work. She wants her Ambien. Started on Ambien p.r.n. Seasonal allergies Continue Claritin Continue Flonase GERD Continue Protonix daily- Insomnia. I will increase Ambien to 10 mg as per patient's request. Assessment & Plan (09/22/2025 1:37 PM RESEARCH/PROGRAM DIRECTOR): Multifocal pneumonia Suspected COPD exacerbation. Hx of COPD/pulmonary hypertension/iron-deficiency anemia Shortness of the breath is likely secondary to Multifocal pneumonia, COPD exacerbation could be congestive heart failure. Hx of COPD/pulmonary hypertension/iron-deficiency anemia -Patient was started on Rocephin and azithromycin, day 2. Will continue antibiotic for total 5 days. Continue bronchodilator DuoNeb, Symbicort Pneumo antigen is negative. Ordered Legionella and mycoplasma sputum culture and blood culture blood culture is so far negative. -Continuous monitoring SpO2 with telemetry -Continue oxygen -Wean O2 for an SpO2 greater than or equal to 92% -Solu-Medrol with 40 mg q.day -Check urine strep -Viral panel negative -Anemia stable HFpEF Previous echo on 2022 showed normal ejection fraction with grade 1 diastolic dysfunction. Mildly elevated pro BNP Repeat echocardiogram Strict I&O Hx of aortic stenosis s/p AVR HTN Continue aspirin Continue lisinopril Insomnia Patient stated that Remeron did not work. She wants her Ambien. Started on Ambien p.r.n. Seasonal allergies Continue Claritin Continue Flonase GERD Continue Protonix daily- Assessment & Plan (09/21/2025 6:36 PM RESEARCH/PROGRAM DIRECTOR): Multifocal pneumonia Hx of COPD/pulmonary hypertension/iron-deficiency anemia -Start Rocephin -Start azithromycin -Start DuoNebs t.i.d. -Start Symbicort -Continuous monitoring SpO2 with telemetry -Continue oxygen -Wean O2 for an SpO2 greater than or equal to 92% -Blood cultures obtained -Start Solu-Medrol 125 mg x 1 now follows with 40 mg q.day -Check urine strep -Viral panel negative -Anemia stable HFpEF Mildly elevated pro BNP Repeat echocardiogram Strict I&O Hx of aortic stenosis s/p AVR HTN Palpitations 11/30/2019 Encounter for management of implanted [...] (04/23/2019): Added automatically from request for surgery [id number] Dyspnea on exertion 11/17/2018 01/08/20 22 Encounters Date Type Department Care Team Description 09/21/2025 1:37 PM RESEARCH/PROGRAM DIRECTOR - 09/24/2025 5:27 PM RESEARCH/PROGRAM DIRECTOR Hospital Encounter [place] [id number] [facility] [address] [place] [id number] Annmarie Estrella MD Gursahani, Kamal, MD Chowdhury, Farhanaz, MD Acute respiratory failure with hypoxia (HCC) (Primary Dx); Hypoxia Discharge Disposition: Discharge to home or self care 09/21/2025 12:45 PM RESEARCH/PROGRAM DIRECTOR Infusion [facility] [place] at [address] [place] [address] Iron deficiency anemia, unspecified iron deficiency anemia type (Primary Dx); Iron deficiency anemia due to chronic blood loss 09/14/2025 12:45 PM RESEARCH/PROGRAM DIRECTOR Infusion [facility] [place] at [address] [place] [address] Iron deficiency anemia, unspecified iron deficiency anemia type (Primary Dx); Iron deficiency anemia due to chronic blood loss 08/30/2025 Telephone [facility] On[facility] [address] [place] [phone] Tisha Lang CMA 08/30/2025 Orders Only [facility] Oncology [address] [place] [phone] Nely Eagle, STEPHANIE 08/27/2025 2:15 PM RESEARCH/PROGRAM DIRECTOR Office Visit [facility] Oncology [address] [place] [address] [address] [place] [address] Greg Brandon, Iron deficiency anemia due to chronic blood loss (Primary Dx); Iron deficiency anemia, unspecified iron deficiency anemia type from Last 3 Months Immunizations Immunization Administration [...] 0.6 oz pur e alcohol) social drinker Social Connection and Isolation Panel Answer Date Recorded In a typical week, how many times do you talk on the phone with family, friends, or neighbors? More than three times a week 09/22/2025 How often do you get togethe r with friends or relatives? More than three times a week 09/22/2025 Attends [employer] Services More than 4 times per year 09/22/2025 Active Member of Clubs or Organizations No 09/22/2025 Attends Club or Organization Meetings Never 09/22/2025 Marital Status 09/22/2025 AUDIT-C Answer Date Recorded Frequency of Alcohol Consumption Not on file 08/27/2025 Q2: How many drinks containi ng alcohol do you have on a typical day when you are drinking? Patient does not drink Frequency of Binge Drinking Not on file 08/14 Overall Financial Resource Strain (CARDIA) Answe r Date Recorded How hard is it for you to pa y for the very basics like food, housing, medical care, and heating? Not hard at all 09/22/2025 Hunger Vital Sign Answer Date Recorded Within the past 12 months, y ou worried that your food would run out before you got the money to buy more. Never true 09/22/20 25 Within the past 12 months, t he food you bought just didn't last and you didn't have money to get more. Never true 09/22/2025 PRAPARE - Transportation Answer Date Re corded In the past 12 months, has l ack of transportation kept you from medical appointments or from getting medications? No 09/13 In the past 12 months, has l ack of transportation kept you from meetings, work, or from getting things needed for daily living? No 09/22/2025 Housing Stability Vital Sign Answer Jamin e Recorded In the last 12 months, was t here a time when you were not able to pay the mortgage or rent on time? No 09/22/2025 In the past 12 months, how m any times have you moved where you were living? 0 09/22/2025 At any time in the past 12 m [facility], were you homeless or living in a intermediate (including now)? No 09/22/2025 [facility] Utilities Answer Date Recorded In the past 12 months has th e electric, gas, oil, or water company threatened to shut off services in your home? No 09/22/2025 Personal Safety Answer Date Recorded Have you ever been in or are you currently in a harmful physical or emotional relationship or is someone making you feel afraid or unsafe? 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 Not on file Not on fi le Last Filed Vital Signs Vital Sign Reading Time Taken Comments Blood Pressure 141/64 09/24/2025 3:29 PM RESEARCH/PROGRAM DIRECTOR Pulse 87 09/24/2025 3:29 PM RESEARCH/PROGRAM DIRECTOR Temperature 36.9 C (98.4 F) 09/24/2025 3:29 PM RESEARCH/PROGRAM DIRECTOR Respiratory Rate 18 09/24/2025 3:29 PM RESEARCH/PROGRAM DIRECTOR Oxygen Saturation 87% 09/24/2025 3:27 PM RESEARCH/PROGRAM DIRECTOR Inhaled Oxygen Concentration - - Weight 55.5 kg (122 lb 6.4 oz) 09/24/2025 4:10 A M RESEARCH/PROGRAM DIRECTOR Height 154.9 cm (5' 1) 09/21/2025 7:39 PM RESEARCH/PROGRAM DIRECTOR Body Mass Index 23.13 09/21/2025 7:39 PM RESEARCH/PROGRAM DIRECTOR Plan of Treatment Health Maintenance Due Date Last Done Comments Depression Screening 1940 Osteoporosis Screening-Bone Density Scan 1941 Hepatitis B Screening 1959 Well Visit 65+ 2006 DTaP/Tdap/Td Vaccine (1 - Tdap) 10/15/2016 7, 11/05/2014 Zoster Vaccine (3 of 3) 07/30/2018 06/04/2018, 06/03 Covid-19 Vaccine (2024-2 6 season) 2025 01/23/2022, 08/08/2021, 12/13/2020, Additional history exists Influenza Vaccine (#1) 2025 0, 08/07/2018, 06/14/2018 Fall Risk Assessment 09/23/2026 09/23/2025 Pneumococcal vaccine 65+ Completed 07/19/2015, 07/14 Medical Devices Implanted Type 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 [employer] Maintenance Device Identifier Shelf Expiration Date Model / Serial / Lot [employer] [id number] Inspiris Resilia Leaflet Sewing Ring 21mm Valve Aortic Bovine - [id number] - [id number] Implanted:Qty: 1 on 05/01/2019 by Doc Schneider MD at [facility] N/A: Heart [employer] 11/04/2020 [id number] / [id number] / [facility] 24-023-11 Drill-Free; Maxdrive Od2.3 Mm L11 Mm Self Retaining; Lock Sternal - [id number] Implanted:Qty: 4 on 05/01/2019 by Doc Schneider MD at [facility] N/A: Sternum [facility] 24-023-11 / / [facility] 24-025-48 Titanium 1.8mm 4 Hole Sternal Straight Plate Bone Midline - [id number] Implanted:Qty: 1 on 05/01/2019 by Doc Schneider MD at [facility] N/A: Sternum [facility] 24-025-48 / / Procedures Procedure Name Priority Date/Time Associated Diagnosis Comments HOME O2 EVAL (DESATURATION SCREEN) Routine 09/24/2025 10:00 AM RESEARCH/PROGRAM DIRECTOR EGFR Routine 09/24/2025 5:16 AM RESEARCH/PROGRAM DIRECTOR DIFFERENTIAL AUTO Routine 09/24/2025 5:1 6 AM RESEARCH/PROGRAM DIRECTOR BASIC METABOLIC PANEL Routine 09/24/2025 5:16 AM RESEARCH/PROGRAM DIRECTOR CBC WITH AUTO DIFFERENTIAL Routine 09/24/2025 5:16 AM RESEARCH/PROGRAM DIRECTOR LEGIONELLA ANTIGEN, URINE Routine 09/23/2025 6:04 AM RESEARCH/PROGRAM DIRECTOR EGFR Routine 09/23/2025 4:19 AM RESEARCH/PROGRAM DIRECTOR DIFFERENTIAL AUTO Routine 09/23/2025 4:1 9 AM RESEARCH/PROGRAM DIRECTOR CBC WITH AUTO DIFFERENTIAL Routine 09/23/2025 4:19 AM RESEARCH/PROGRAM DIRECTOR BASIC METABOLIC PANEL Routine 09/23/2025 4:19 AM RESEARCH/PROGRAM DIRECTOR MYCOPLASMA PNEUMONIAE PCR Routine 09/22/2025 10:26 PM RESEARCH/PROGRAM DIRECTOR AEROBIC CULTURE AND GRAM STAIN Routine 09/22/2025 10:26 PM RESEARCH/PROGRAM DIRECTOR TRANSTHORACIC ECHO (TTE) COMPLETE W DOPPLER/CF W CONTRAST Routine 09/22/2025 12:45 PM RESEARCH/PROGRAM DIRECTOR EGFR Routine 09/22/2025 5:22 AM RESEARCH/PROGRAM DIRECTOR DIFFERENTIAL AUTO Routine 09/22/2025 5:2 2 AM RESEARCH/PROGRAM DIRECTOR CBC WITH AUTO DIFFERENTIAL Routine 09/22/2025 5:22 AM RESEARCH/PROGRAM DIRECTOR MAGNESIUM Routine 09/22/2025 5:22 AM RESEARCH/PROGRAM DIRECTOR BASIC METABOLIC PANEL Routine 09/22/2025 5:22 AM RESEARCH/PROGRAM DIRECTOR STREP PNEUMONIAE AG, URINE Routine 09/21/2025 9:25 PM RESEARCH/PROGRAM DIRECTOR TROPONIN T HIGH-SENSITIVITY 2-HOUR Timed 09/21/2025 3:48 PM RESEARCH/PROGRAM DIRECTOR B CHECK SAMPLE STAT 09/21/2025 2:40 PM RESEARCH/PROGRAM DIRECTOR URINALYSIS AND REFLEX TO MICROSCOPIC AND CULTURE STAT 09/21/2025 2:40 PM RESEARCH/PROGRAM DIRECTOR BLOOD CULTURE STAT 09/21/2025 2:15 PM RESEARCH/PROGRAM DIRECTOR BLOOD CULTURE STAT 09/21/2025 2:15 PM RESEARCH/PROGRAM DIRECTOR XR CHEST 1 VIEW ED 09/21/2025 2:04 PM RESEARCH/PROGRAM DIRECTOR INFLUENZA A/B, RSV, AND COVID-19 PCR STAT 09/21/2025 1:59 PM RESEARCH/PROGRAM DIRECTOR EGFR STAT 09/21/2025 1:57 PM RESEARCH/PROGRAM DIRECTOR DIFFERENTIAL AUTO STAT 09/21/2025 1:5 7 PM RESEARCH/PROGRAM DIRECTOR SEPSIS LACTATE WITH REFLEX STAT 09/21/2025 1:57 PM RESEARCH/PROGRAM DIRECTOR TYPE AND SCREEN STAT 09/21/2025 1:57 PM RESEARCH/PROGRAM DIRECTOR TROPONIN T HIGH-SENSITIVITY SERIES (BASELINE, 2HR, 4HR, 6HR) STAT 09/21/2025 1:57 PM RESEARCH/PROGRAM DIRECTOR PRO B-TYPE NATRIURETIC PEPTIDE STAT 09/21/2025 1:57 PM RESEARCH/PROGRAM DIRECTOR COMPREHENSIVE METABOLIC PANEL STAT 09/21/2025 1:57 PM RESEARCH/PROGRAM DIRECTOR CBC WITH AUTO DIFFERENTIAL STAT 09/21/2025 1:57 PM RESEARCH/PROGRAM DIRECTOR ECG 12-LEAD STAT 09/21/2025 1:47 PM RESEARCH/PROGRAM DIRECTOR IRON PROFILE W/ IBC Routine 08/23/2025 9 :39 AM RESEARCH/PROGRAM DIRECTOR Iron deficiency anemia, unspecified iron deficiency anemia type FERRITIN Routine 08/23/2025 9:39 AM RESEARCH/PROGRAM DIRECTOR Iron deficiency anemia, unspecified iron deficiency anemia type CBC WITH AUTO DIFFERENTIAL Routine 08/23/2025 9:39 AM RESEARCH/PROGRAM DIRECTOR Iron deficiency anemia, unspecified iron deficiency anemia type from Last 3 Months Results * eGFR (09/24/2025 5:16 AM RESEARCH/PROGRAM DIRECTOR) [facility] eGFR 90 >=60 mL/min/1. 73 m2 Comment: Interpretive Data Reference Interval Normal >/= 90 mL/min/1.73m2 Mildly decreased* 60 - 89 mL/min/1.73m2 Mildly to moderately decreased 45 - 59 mL/min/1.73m2 Moderately to severely decreased 30 - 44 mL/min/1.73m2 Severely decreased 15 - 29 mL/min/1.73m2 Kidney Failure < 15 mL/min/1.73m2 *Relative to young adult level Estimated glomerular filtration rate is determined by the 2020 CKD-EPI equation recommended by the National Kidney Foundation (A Unifying Approach to GFR Estimation: Recommendations of the NKF-ASK Task Force on Reassessing the Inclusion of Race in Diagnosing Kidney Disease, JASN 2020). The CKD-EPI equation should not be used for patients with unstable renal function and has not been validated in children and those over 70. Current interpretive data was last reviewed 2021. Testing performed by: [address] [address] Blood 09/24/2025 5:16 AM RESEARCH/PROGRAM DIRECTOR 09/24/2025 5:32 AM RESEARCH/PROGRAM DIRECTOR us Chai Lopez MD LAB BLOOD ORDERABLES Final Result JARRETT MCKAY [address] [facility] Department of Laboratories [place], [place] [id number] * (ABNORMAL) Differential, auto (09/24/2025 5:16 AM RESEARCH/PROGRAM DIRECTOR) Neutrophil abs 6.95(H) 1.50 - 6.50 K/cumm Comment:Testing performed by : [address] [address] Imm gran abs 0.06 0.00 - 0.10 K/cumm JARRETT MCKAY Comment:Testing performed by : [address] [address] Lymphocyte abs 1.20 0.80 - 3.30 K/cumm JARRETT MCKAY Comment:Testing performed by : [address] [address] Monocyte abs 0.77 0.20 - 0.80 K/cumm MARILYNJACOB Comment:Testing performed by : [address] [address] Eosinophil abs 0.01 0.00 - 0.50 K/cumm JARRETT Comment:Testing performed by : [address] [address] Basophil abs 0.02 0.00 - 0.10 K/cumm [facility] Comment:Testing performed by : [address] [address] Neutrophil pct 77.2 % [facility] Comment: Interpretive Data Percent cell count reference ranges are not reported, since discordance with absolute values may lead to misinterpretation of CBC data. Current Interpretive Data was last revised on 2018. Testing performed by: [address] [address] Imm gran pct 0.7 % [facility] Comment: Interpretive Data Percent cell count reference ranges are not reported, since discordance with absolute values may lead to misinterpretation of CBC data. Current Interpretive Data was last revised on 2018. Testing performed by: [address] [address] Lymphocyte pct 13.3 % [facility] Comment: Interpretive Data Percent cell count reference ranges are not reported, since discordance with absolute values may lead to misinterpretation of CBC data. Current Interpretive Data was last revised on 2018. Testing performed by: [address] [address] Monocyte pct 8.5 % [facility] Comment: Interpretive Data Percent cell count reference ranges are not reported, since discordance with absolute values may lead to misinterpretation of CBC data. Current Interpretive Data was last revised on 2018. Testing performed by: [address] [address] Eosinophil pct 0.1 % [facility] Comment: Interpretive Data Percent cell count reference ranges are not reported, since discordance with absolute values may lead to misinterpretation of CBC data. Current Interpretive Data was last revised on 2018. Testing performed by: [address] [address] Basophil pct 0.2 % [facility] Comment: Interpretive Data Percent cell count reference ranges are not reported, since discordance with absolute values may lead to misinterpretation of CBC data. Current Interpretive Data was last revised on 2018. Testing performed by: [address] [address] Blood 09/24/2025 5:16 AM RESEARCH/PROGRAM DIRECTOR 09/24/2025 5:41 AM RESEARCH/PROGRAM DIRECTOR us Marcelle Neil TELESALES PROFESSIONAL LAB BLOOD ORDERABLES Final R esult JARRETT [address] [facility] Department [place] [address] * (ABNORMAL) CBC with auto differential (09/24/2025 5:16 AM RESEARCH/PROGRAM DIRECTOR) WBC 9.01 3.80 - 9.90 K/cumm Comment:Testing performed by : [address] [address] Hgb 9.2(L) 11.9 - 15.5 g/dL JARRETT Comment:Testing performed by : [address] [address] Hct 29.9(L) 35.6 - 45.5 % JARRETT Comment:Testing performed by : [address] [address] Plt 222 150 - 400 K/cumm JARRETT Comment:Testing performed by : [address] [address] MPV 10.1 9.1 - 12.3 fL JARRETT Comment:Testing performed by : [address] [address] RBC 3.48(L) 3.90 - 5.20 M/cumm JARRETT Comment:Testing performed by : [address] [address] MCV 85.9 81.3 - 96.4 fL JARRETT Comment:Testing performed by : [address] [address] MCH 26.4(L) 27.1 - 33.3 pg JARRETT MCKAY Comment:Testing performed by : [address] [address] MCHC 30.8(L) 32.3 - 35.7 g/dL JARRETT MCKAY Comment:Testing performed by : [address] [address] RDW CV 15.9(H) 11.1 - 14.9 % JARRETT MCKAY Comment:Testing performed by : [address] [address] RDW SD 47.4 35.7 - 48.1 fL JARRETT MCKAY Comment:Testing performed by : [address] [address] NRBC abs 0.00 0.00 - 0.01 K/cumm JARRETT MCKAY Comment:Testing performed by : [address] [address] Blood 09/24/2025 5:16 AM RESEARCH/PROGRAM DIRECTOR 09/24/2025 5:41 AM RESEARCH/PROGRAM DIRECTOR us Marcelle Neil NP LAB BLOOD ORDERABLES Final R esult JARRETT MCKAY [address] [facility] Department of Laboratories [place], [place] [id number] * (ABNORMAL) Basic metabolic panel (09/24/2025 5:16 AM RESEARCH/PROGRAM DIRECTOR) Sodium 140 135 - 145 mmol/L Comment:Testing performed by : [address] [address] Potassium, pl 4.2 3.3 - 4.9 mmol/L JARRETT MCKAY Comment:Testing performed by : [address] [address] Chloride 104 97 - 110 mmol/L JARRETT MCKAY Comment:Testing performed by : [address] [address] CO2 30 22 - 32 mmol/L JARRETT MCKAY Comment:Testing performed by : [address] [address] Anion gap 6 2 - 15 mmol/L JARRETT Comment:Testing performed by : [address] [address] BUN 15 6 - 25 mg/dL JARRETT Comment:Testing performed by : [address] [address] Creatinine 0.57(L) 0.60 - 1.10 mg/dL JARRETT Comment:Testing performed by : [address] [address] Glucose 109 70 - 199 mg/dL JARRETT Comment: Interpretive Data Fasting glucose >/= 126 mg/dl is diagnostic for diabetes. Fasting is defined as no caloric intake for at least 8 hours. Fasting glucose between 100 mg/dl to 125 mg/dl is diagnostic of prediabetes. In a patient with classic symptoms of hyperglycemia or hyperglycemic crisis, a random glucose >/= 200 mg/dl is diagnostic for diabetes. In the absence of unequivocal hyperglycemia, results should be confirmed by repeat testing. The classification and Diagnosis of Diabetes Diabetes Care 2021; 46: S19-S40. Current interpretive data was last revised 2022. Testing performed by: [address] [address] Calcium 9.0 8.5 - 10.3 mg/dL JARRETT Comment:Testing performed by : [address] [address] Blood 09/24/2025 5:16 AM RESEARCH/PROGRAM DIRECTOR 09/24/2025 5:32 AM RESEARCH/PROGRAM DIRECTOR Chai Lopez MD LAB BLOOD ORDERABLES Final Result [facility] [address] [facility] Department [place] [address] * Legionella antigen Urine (09/23/2025 6:04 AM RESEARCH/PROGRAM DIRECTOR) Legionella Ag Negative Negative Comment: Interpretive Data This test detects only Legionella pneumophila serogroup 1 antigen. Testing performed by [facility] ([phone]). Current interpretive data was last revised on 2019. Testing performed by: [facility], [address] [facility] [place]., [address] Urine 09/23/2025 6:04 AM RESEARCH/PROGRAM DIRECTOR 09/23/2025 11:43 AM RESEARCH/PROGRAM DIRECTOR Chai Lopez MD LAB MICROBIOLOGY - GENERAL ORDERABLES Final Result Performing Organization Address City/[facility]/ZIP Co de Phone Number JARRETT [address] [place] [address] * eGFR (09/23/2025 4:19 AM RESEARCH/PROGRAM DIRECTOR) eGFR >90 >=60 mL/min/1. 73 m2 Comment: Interpretive Data Reference Interval Normal >/= 90 mL/min/1.73m2 Mildly decreased* 60 - 89 mL/min/1.73m2 Mildly to moderately decreased 45 - 59 mL/min/1.73m2 Moderately to severely decreased 30 - 44 mL/min/1.73m2 Severely decreased 15 - 29 mL/min/1.73m2 Kidney Failure < 15 mL/min/1.73m2 *Relative to young adult level Estimated glomerular filtration rate is determined by the 2020 CKD-EPI equation recommended by the National Kidney Foundation (A Unifying Approach to GFR Estimation: Recommendations of the NKF-ASK Task Force on Reassessing the Inclusion of Race in Diagnosing Kidney Disease, JASN 2020). The CKD-EPI equation should not be used for patients with unstable renal function and has not been validated in children and those over 70. Current interpretive data was last reviewed 2021. Testing performed by: [facility], [address] [place] [address]., [address] Blood 09/23/2025 4:19 AM RESEARCH/PROGRAM DIRECTOR 09/23/2025 4:37 AM RESEARCH/PROGRAM DIRECTOR Marcelle Neil NP LAB BLOOD ORDERABLES Final R esult Performing Organization Address City/[facility]/ZIP Co de Phone Number MARILYN[address] [place] [address] * (ABNORMAL) Differential, auto (09/23/2025 4:19 AM RESEARCH/PROGRAM DIRECTOR) Neutrophil abs 7.09(H) 1.50 - 6.50 K/cumm Comment:Testing performed by : [address] [address] Imm gran abs 0.06 0.00 - 0.10 K/cumm JARRETT Comment:Testing performed by : [address] [address] Lymphocyte abs 0.90 0.80 - 3.30 K/cumm [facility] [place] Comment:Testing performed by : [address] [address] Monocyte abs 0.92(H) 0.20 - 0.80 K/cumm [facility] [place] Comment:Testing performed by : [address], [place]., [address] Eosinophil abs 0.02 0.00 - 0.50 K/cumm JARRETT Comment:Testing performed by : [address] [address] Basophil abs 0.02 0.00 - 0.10 K/cumm [facility] Comment:Testing performed by : [address] [address] Neutrophil pct 78.7 % [facility] Comment: Interpretive Data Percent cell count reference ranges are not reported, since discordance with absolute values may lead to misinterpretation of CBC data. Current Interpretive Data was last revised on 2018. Testing performed by: [address] [address] Imm gran pct 0.7 % [facility] [place] Comment: Interpretive Data Percent cell count reference ranges are not reported, since discordance with absolute values may lead to misinterpretation of CBC data. Current Interpretive Data was last revised on 2018. Testing performed by: [address] [address] Lymphocyte pct 10.0 % CERNER Comment: Interpretive Data Percent cell count reference ranges are not reported, since discordance with absolute values may lead to misinterpretation of CBC data. Current Interpretive Data was last revised on 2018. Testing performed by: [address] [address] Monocyte pct 10.2 % JARRETT Comment: Interpretive Data Percent cell count reference ranges are not reported, since discordance with absolute values may lead to misinterpretation of CBC data. Current Interpretive Data was last revised on 2018. Testing performed by: [address] [address] Eosinophil pct 0.2 % JARRETT MCKAY Comment: Interpretive Data Percent cell count reference ranges are not reported, since discordance with absolute values may lead to misinterpretation of CBC data. Current Interpretive Data was last revised on 2018. Testing performed by: [address] [address] Basophil pct 0.2 % JARRETT Comment: Interpretive Data Percent cell count reference ranges are not reported, since discordance with absolute values may lead to misinterpretation of CBC data. Current Interpretive Data was last revised on 2018. Testing performed by: [address] [address] Blood 09/23/2025 4:19 AM RESEARCH/PROGRAM DIRECTOR 09/23/2025 4:39 AM RESEARCH/PROGRAM DIRECTOR us Marcelle Neil NP LAB BLOOD ORDERABLES Final R esult JARRETT [address] [facility] [place] [address] * (ABNORMAL) CBC with auto differential (09/23/2025 4:19 AM RESEARCH/PROGRAM DIRECTOR) WBC 9.01 3.80 - 9.90 K/cumm Comment:Testing performed by : [address] [address] Hgb 9.0(L) 11.9 - 15.5 g/dL JARRETT MCKAY Comment:Testing performed by : [address] [address] Hct 29.0(L) 35.6 - 45.5 % JARRETT MCKAY Comment:Testing performed by : [address] [address] Plt 194 150 - 400 K/cumm JARRETT MCKAY Comment:Testing performed by : [address] [address] MPV 9.9 9.1 - 12.3 fL JARRETT MCKAY Comment:Testing performed by : [address] [address] RBC 3.39(L) 3.90 - 5.20 M/cumm JARRETT MCKAY Comment:Testing performed by : [address] [address] MCV 85.5 81.3 - 96.4 fL JARRETT Comment:Testing performed by : [address] [address] MCH 26.5(L) 27.1 - 33.3 pg JARRETT Comment:Testing performed by : [address] [address] MCHC 31.0(L) 32.3 - 35.7 g/dL JARRETT Comment:Testing performed by : [address] [address] RDW CV 15.6(H) 11.1 - 14.9 % JARRETT Comment:Testing performed by : [address] [address] RDW SD 46.5 35.7 - 48.1 fL JARRETT Comment:Testing performed by : [address] [address] NRBC abs 0.00 0.00 - 0.01 K/cumm JARRETT Comment:Testing performed by : [address] [address] Blood 09/23/2025 4:19 AM RESEARCH/PROGRAM DIRECTOR 09/23/2025 4:39 AM RESEARCH/PROGRAM DIRECTOR us Marcelle Neil NP LAB BLOOD ORDERABLES Final R esult JARRETT [address] [facility] Department of Laboratories [place], [place] [id number] * (ABNORMAL) Basic metabolic panel (09/23/2025 4:19 AM RESEARCH/PROGRAM DIRECTOR) Sodium 140 135 - 145 mmol/L Comment:Testing performed by : [address] [address] Potassium, pl 4.1 3.3 - 4.9 mmol/L JARRETT Comment:Testing performed by : [address], [place]., [address] Chloride 105 97 - 110 mmol/L JARRETT Comment:Testing performed by : [address], [place]., [address] CO2 28 22 - 32 mmol/L JARRETT Comment:Testing performed by : [address] [address] Anion gap 7 2 - 15 mmol/L JARRETT Comment:Testing performed by : [address] [address] BUN 12 6 - 25 mg/dL JARRETT Comment:Testing performed by : [address] [address] Creatinine 0.48(L) 0.60 - 1.10 mg/dL [facility] [place] Comment:Testing performed by : [address] [address] Glucose 131 70 - 199 mg/dL [facility] [place] Comment: Interpretive Data Fasting glucose >/= 126 mg/dl is diagnostic for diabetes. Fasting is defined as no caloric intake for at least 8 hours. Fasting glucose between 100 mg/dl to 125 mg/dl is diagnostic of prediabetes. In a patient with classic symptoms of hyperglycemia or hyperglycemic crisis, a random glucose >/= 200 mg/dl is diagnostic for diabetes. In the absence of unequivocal hyperglycemia, results should be confirmed by repeat testing. The classification and Diagnosis of Diabetes Diabetes Care 2021; 46: S19-S40. Current interpretive data was last revised 2022. Testing performed by: [address] [address] Calcium 8.8 8.5 - 10.3 mg/dL JARRETT Comment:Testing performed by : [address], [place]., [address] Blood 09/23/2025 4:19 AM RESEARCH/PROGRAM DIRECTOR 09/23/2025 4:37 AM RESEARCH/PROGRAM DIRECTOR Marcelle Neil NP LAB BLOOD ORDERABLES Final R esult Performing Organization Address [facility] Co de Phone Number JARRETT [address] [place] [address] * Mycoplasma pneumoniae PCR Sputum (09/22/2025 10:26 PM RESEARCH/PROGRAM DIRECTOR) M. pneumoniae DNA Not Detected Not Detected [facility] Comment: Interpretive Data: This assay tests for the presence of Mycoplasma pneumoniae. This test is laboratory developed and its performance characteristics were determined by the performing laboratory in a manner consistent with CLIA requirements. This test has not been cleared or approved by the U.S. Food and Drug Administration. Current Interpretive Data was last revised on 2020. Testing performed by: [facility], [address] [place] [address]., [address] Sputum 09/22/2025 10:2 6 PM RESEARCH/PROGRAM DIRECTOR 09/23/2025 3:58 AM RESEARCH/PROGRAM DIRECTOR Chai Lopez MD LAB MICROBIOLOGY - GENERAL ORDERABLES Final Result Performing Organization Address [facility] de Phone Number JARRETT [address] [place] [address] [facility] * (ABNORMAL) Aerobic culture and gram stain Sputum Sputum (09/22/2025 10:26 PM RESEARCH/PROGRAM DIRECTOR) Pathologist [facility] [place] Direct Specimen Exam Stain: Abundant polymorphonuclear leukocytes seen. No squamous epithelial cells seen. Rare mixed bacterial moises seen on Gram stain. Comment:Testing performed by : [facility], [address] [facility] [place]., [address] Report Final Report: Aspergillus fumigatus Plus growth of clinically insignificant bacterial moises. (.) JARRETT MCKAY Comment:Testing performed by : [facility], [address] [facility] [place]., [address] Organism PLUS GROWTH OF CLINICALLY INSIGNIFICANT MOISES. JARRETT Organism ASPERGILLUS FUMIGATUS JARRETT Sputum (Sputum) 09/22/2025 1 0:26 PM RESEARCH/PROGRAM DIRECTOR 09/23/2025 3:10 AM RESEARCH/PROGRAM DIRECTOR Narrative JARRETT - 09/28/2025 11:44 AM RESEARCH/PROGRAM DIRECTOR Testing performed by [facility] Microbiology Laboratory ([phone]) Specimens submitted from normally sterile body sites will have all bacterial morphotypes identified. Specimens that contain grossly mixed moises and/or are from body sites that are not normally sterile will be examined for Staphylococcus aureus, Pseudomonas aeruginosa, beta-hemolytic strep, vancomycin-resistant Enterococcus and fungus. If any of these are isolated, the organism will be reported. Current interpretive data was last revised on 2017. us Chai Lopez MD LAB MICROBIOLOGY - GENERAL ORDERABLES Final Result JARRETT [facility] Department [place] [address] * TRANSTHORACIC ECHO (TTE) COMPLETE W DOPPLER/CF W CONTRAST (09/22/2025 12:45 PM RESEARCH/PROGRAM DIRECTOR) Estimated EF 55-60 % CONS SCIMAGE Anatomical Region Laterality Modality Ultrasound 09/22/2025 12:1 4 PM RESEARCH/PROGRAM DIRECTOR Narrative 09/22/2025 6:31 PM RESEARCH/PROGRAM DIRECTOR Transthoracic Echocardiographic Report Patient Name: MARY ANN KLEIN A : 1940 (84y 9m) Sex: F Study Date: 09/22/2025 12:14:05 PM Ht(Inch): 61 Wt(Lb): 122.99 BSA: 1.54 Meat Smoker: Leandra Smallwood RDCS Location: [id number] Order Provider: MARCELLE NEIL Heart Rate: 88 BMI: 23.24 BP: 124 / 62 Ref Provider: MARCELLE NEIL PROCEDURES: Echocardiographic Report: ([id number]) Transthoracic complete echo with contrast, 2D, spectral and tissue Doppler, color flow Doppler, M-mode. Contrast: A contrast injection of Definity was performed to improve assessment of LV function. Definity Lot Number: [id number]. Technically difficult study due to: Technically difficult study due to underlying lung condition. INDICATIONS: shortness of breath. FINDINGS: Left Ventricle: Normal left ventricular cavity size. Normal left ventricular systolic function. The Ejection Fraction is visually estimated to be 55-60 %. Diastolic Function E to E' ratio is >15 suggesting a high pulmonary wedge pressure and LV diastolic dysfunction. Regional Wall Motion: Technically difficult to assess Left Ventricular wall motion. Right Ventricle: Normal right ventricular size. Normal right ventricular systolic function. Left Atrium: Severely dilated left atrium. Right Atrium: The right atrium is normal in size. Atrial Septum: No shunt by color Doppler. Mitral Valve: Normal mitral valve leaflet structure. There is trace mitral valve regurgitation. No mitral valve stenosis. Aortic Valve: The mean transaortic gradient is 13 mmHg. 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 The aortic prosthesis demonstrates a mildly increased transvalvular gradient for valve type and size. This is suggestive of mild prosthetic aortic stenosis. Tricuspid Valve: The tricuspid valve demonstrates normal leaflet structure. No tricuspid regurgitation seen. No tricuspid valve stenosis. Pulmonic Valve: No evidence of pulmonic regurgitation. Pericardium: Normal pericardium without evidence of pericardial effusion. Aorta: Normal aortic root. The aortic sinus is normal in size. The ascending aorta is normal in size. IVC: IVC is normal in size. CONCLUSIONS: 1. Normal left ventricular cavity size. Normal left ventricular systolic function. The Ejection Fraction is visually estimated to be 55-60 %. Diastolic Function E to E' ratio is >15 suggesting a high pulmonary wedge pressure and LV diastolic dysfunction. 2. Normal right ventricular size. Normal right ventricular systolic function. 3. Severely dilated left atrium. 4. Normal mitral valve leaflet structure. There is trace mitral valve regurgitation. No mitral valve stenosis. 5. The mean transaortic gradient is 13 mmHg. 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 The aortic prosthesis demonstrates a mildly increased transvalvular gradient for valve type and size. This is suggestive of mild prosthetic aortic stenosis. 6. Normal pericardium without evidence of pericardial effusion. MEASUREMENTS: 2D/MM Value Range Doppler Value Visually Estimated EF 55-60 % AV Peak Buck 2.58 m/s LA Length 2C 6.31 cm AV Peak PG 26.63 mmHg LA Length 4C 6.04 cm AV Mean PG 13.00 mmHg LA Volume BP 112.00 ml AV VTI 53.60 cm LA Volume Index 72.90 ml/m2 [ 16.00 - 34.00 ] LVOT Peak Buck 1.35 m/s TAPSE 1.63 cm [ 1.71 - 5.00 ] LVOT Peak PG 7.29 mmHg LVOT Mean PG 4.00 mmHg LVOT VTI 29.20 cm LVOT/AV VTI 0.54 - Dimensionless index (DVI) MV E Peak Buck 1.25 m/s MV A Peak Buck 0.99 m/s MV E/A 1.30 ratio MV Decel Time 208.00 msec Med E` Buck 0.06 m/s Lat E` Buck 0.08 m/s Average E/E` 17.86 TV Peak Buck 0.45 m/s TV Peak PG 0.81 mmHg RV S` 0.11 m/s TR Peak Buck 3.22 m/s TR Peak PG 41.5 mmHg PV Peak Buck 0.68 m/s PV Peak PG 1.85 mmHg - ATTESTATION: I have reviewed and interpreted the pertinent images and measurements of this study. I attest to the conclusions in the final report that is provided above. DISCLAIMER: The study images and the final report will be retained in the patient chart by the Echo Laboratory for the legally required time period. This chart constitutes the legal record of any testing performed. Electronically Signed By: Matheus Martin MD 09/22/2025 6:30:25 PM RESEARCH/PROGRAM DIRECTOR Procedure Note Matheus Martin MD - 09/22/2025 Transthoracic Echocardiographic Report Patient Name: MARY ANN KLEIN A : 1940 (84y 9m) Sex: F Study Date: 09/22/2025 12:14:05 PM Ht(Inch): 61 Wt(Lb): 122.99 BSA: 1.54 Meat Smoker: Leandra Small[place] [facility] Location: [place] [address] Order Provider:MARCELLE NEIL Heart Rate: 88 BMI: 23.24 BP: 124 / 62 Ref Provider: MARCELLE NEIL PROCEDURES: Echocardiographic Report: ([id number]) Transthoracic complete echo withcontrast, 2D, spectral and tissue Doppler, color flow Doppler, M-mode. Contrast: A contrast injection of Definity was performed to improveassessment of LV function. Definity Lot Number: [id number]. Technically difficult study due to: Technically difficult study due tounderlying lung condition. INDICATIONS: shortness of breath. FINDINGS: Left Ventricle: Normal left ventricular cavity size. Normal leftventricular systolic function. The Ejection Fraction is visually estimated to be 55-60 %.Diastolic Function E to E' ratio is >15 suggesting a high pulmonary wedge pressure and LVdiastolic dysfunction. Regional Wall Motion: Technically difficult to assess Left Ventricularwall motion. Right Ventricle: Normal right ventricular size. Normal right ventricularsystolic function. Left Atrium: Severely dilated left atrium. Right Atrium: The right atrium is normal in size. Atrial Septum: No shunt by color Doppler. Mitral Valve: Normal mitral valve leaflet structure. There is trace mitralvalve regurgitation. No mitral valve stenosis. Aortic Valve: The mean transaortic gradient is 13 mmHg. A bioprostheticvalve is present in the aortic position. The aortic prosthesis demonstrates a mildlyincreased transvalvular gradient for valve type and size. This is suggestive of mildprosthetic aortic stenosis. Tricuspid Valve: The tricuspid valve demonstrates normal leafletstructure. No tricuspid regurgitation seen. No tricuspid valve stenosis. Pulmonic Valve: No evidence of pulmonic regurgitation. Pericardium: Normal pericardium without evidence of pericardialeffusion. Aorta: Normal aortic root. The aortic sinus is normal in size. Theascending aorta is normal in size. IVC: IVC is normal in size. CONCLUSIONS: 1. Normal left ventricular cavity size. Normal left ventricular systolicfunction. The Ejection Fraction is visually estimated to be 55-60 %. Diastolic FunctionE to E' ratio is >15 suggesting a high pulmonary wedge pressure and LV diastolicdysfunction. 2. Normal right ventricular size. Normal right ventricular systolicfunction. 3. Severely dilated left atrium. 4. Normal mitral valve leaflet structure. There is trace mitral valveregurgitation. No mitral valve stenosis. 5. The mean transaortic gradient is 13 mmHg. A bioprosthetic valve ispresent in the aortic position. The aortic prosthesis demonstrates a mildly increasedtransvalvular gradient for valve type and size. This is suggestive of mild prostheticaortic stenosis. 6. Normal pericardium without evidence of pericardial effusion. MEASUREMENTS: 2D/MM Value Range DopplerValue Visually Estimated EF 55-60 % AV Peak Vel2.58 m/s LA Length 2C 6.31 cm AV Peak PG26.63 mmHg LA Length 4C 6.04 cm AV Mean PG13.00 mmHg LA Volume BP 112.00 ml AV VTI53.60 cm LA Volume Index 72.90 ml/m2 [ 16.00 - 34.00 ] LVOT Peak Vel1.35 m/s TAPSE 1.63 cm [ 1.71 - 5.00 ] LVOT Peak PG7.29 mmHg LVOT Mean PG 4.00 mmHg LVOT VTI 29.20 cm LVOT/AV VTI 0.54 - Dimensionless index (DVI) MV E Peak Buck 1.25 m/s MV A Peak Buck 0.99 m/s MV E/A 1.30 ratio MV Decel Time 208.00 msec Med E` Buck 0.06 m/s Lat E` Ubck 0.08 m/s Average E/E` 17.86 TV Peak Buck 0.45 m/s TV Peak PG 0.81 mmHg RV S` 0.11 m/s TR Peak Buck 3.22 m/s TR Peak PG 41.5 mmHg PV Peak Buck 0.68 m/s PV Peak PG 1.85 mmHg - ATTESTATION: I have reviewed and interpreted the pertinent images and measurements ofthis study. I attest to the conclusions in the final report that is provided above. DISCLAIMER: The study images and the final report will be retained in the patientchart by the Echo Laboratory for the legally required time period. This chart constitutesthe legal record of any testing performed. Electronically Signed By: Matheus Martin MD 09/22/2025 6:30:25 PM RESEARCH/PROGRAM DIRECTOR us Marcelle Neil NP CV ECHO PROCEDURES Final Res ult * eGFR (09/22/2025 5:22 AM RESEARCH/PROGRAM DIRECTOR) eGFR >90 >=60 mL/min/1. 73 m2 Comment: Interpretive Data Reference Interval Normal >/= 90 mL/min/1.73m2 Mildly decreased* 60 - 89 mL/min/1.73m2 Mildly to moderately decreased 45 - 59 mL/min/1.73m2 Moderately to severely decreased 30 - 44 mL/min/1.73m2 Severely decreased 15 - 29 mL/min/1.73m2 Kidney Failure < 15 mL/min/1.73m2 *Relative to young adult level Estimated glomerular filtration rate is determined by the 2020 CKD-EPI equation recommended by the National Kidney Foundation (A Unifying Approach to GFR Estimation: Recommendations of the NKF-ASK Task Force on Reassessing the Inclusion of Race in Diagnosing Kidney Disease, JASN 202). The CKD-EPI equation should not be used for patients with unstable renal function and has not been validated in children and those over 70. Current interpretive data was last reviewed 2021. Testing performed by: [facility], [address] [place] [address], [place]., [address] Blood 09/22/2025 5:22 AM RESEARCH/PROGRAM DIRECTOR 09/22/2025 6:05 AM RESEARCH/PROGRAM DIRECTOR us Marcelle Neil [employer]ESSION[employer] LAB BLOOD ORDERABLES Final R esult JARRETT [address] [facility] [place] [address] * (ABNORMAL) Differential, auto (09/22/2025 5:22 AM RESEARCH/PROGRAM DIRECTOR) Neutrophil abs 6.19 1.50 - 6.50 K/cumm Comment:Testing performed by : [address] [address] Imm gran abs 0.05 0.00 - 0.10 K/cumm JARRETT Comment:Testing performed by : [address] [address] Lymphocyte abs 1.20 0.80 - 3.30 K/cumm JARRETT Comment:Testing performed by : [address] [address] Monocyte abs 1.02(H) 0.20 - 0.80 K/cumm JARRETT Comment:Testing performed by : [address] [address] Eosinophil abs 0.19 0.00 - 0.50 K/cumm JARRETT Comment:Testing performed by : [address] [address] Basophil abs 0.02 0.00 - 0.10 K/cumm JARRETT Comment:Testing performed by : [address] [address] Neutrophil pct 71.4 % JARRETT Comment: Interpretive Data Percent cell count reference ranges are not reported, since discordance with absolute values may lead to misinterpretation of CBC data. Current Interpretive Data was last revised on 2018. Testing performed by: [address] [address] Imm gran pct 0.6 % JARRETT Comment: Interpretive Data Percent cell count reference ranges are not reported, since discordance with absolute values may lead to misinterpretation of CBC data. Current Interpretive Data was last revised on 2018. Testing performed by: [address] [address] Lymphocyte pct 13.8 % [facility] Comment: Interpretive Data Percent cell count reference ranges are not reported, since discordance with absolute values may lead to misinterpretation of CBC data. Current Interpretive Data was last revised on 2018. Testing performed by: [address] [address] Monocyte pct 11.8 % [facility] Comment: Interpretive Data Percent cell count reference ranges are not reported, since discordance with absolute values may lead to misinterpretation of CBC data. Current Interpretive Data was last revised on 2018. Testing performed by: [address] [address] Eosinophil pct 2.2 % [facility] Comment: Interpretive Data Percent cell count reference ranges are not reported, since discordance with absolute values may lead to misinterpretation of CBC data. Current Interpretive Data was last revised on 2018. Testing performed by: [address] [address] Basophil pct 0.2 % [facility] Comment: Interpretive Data Percent cell count reference ranges are not reported, since discordance with absolute values may lead to misinterpretation of CBC data. Current Interpretive Data was last revised on 2018. Testing performed by: [address] [address] Blood 09/22/2025 5:22 AM RESEARCH/PROGRAM DIRECTOR 09/22/2025 6:08 AM RESEARCH/PROGRAM DIRECTOR us Marcelle Neil NP LAB BLOOD ORDERABLES Final R esult BANNERJACOB [address] [facility] [place] [address] * (ABNORMAL) CBC with auto differential (09/22/2025 5:22 AM RESEARCH/PROGRAM DIRECTOR) WBC 8.67 3.80 - 9.90 K/cumm Comment:Testing performed by : [address] [address] Hgb 9.2(L) 11.9 - 15.5 g/dL JARRETT Comment:Testing performed by : [address] [address] Hct 29.0(L) 35.6 - 45.5 % JARRETT Comment:Testing performed by : [address] [address] Plt 205 150 - 400 K/cumm JARRETT Comment:Testing performed by : [address] [address] MPV 9.9 9.1 - 12.3 fL JARRETT Comment:Testing performed by : [address] [address] RBC 3.39(L) 3.90 - 5.20 M/cumm JARRETT Comment:Testing performed by : [address] [address] MCV 85.5 81.3 - 96.4 fL JARRETT Comment:Testing performed by : [address] [address] MCH 27.1 27.1 - 33.3 pg JARRETT Comment:Testing performed by : [address] [address] MCHC 31.7(L) 32.3 - 35.7 g/dL JARRETT Comment:Testing performed by : [address] [address] RDW CV 15.5(H) 11.1 - 14.9 % JARRETT Comment:Testing performed by : [address] [address] RDW SD 46.3 35.7 - 48.1 fL JARRETT Comment:Testing performed by : [address] [address] NRBC abs 0.00 0.00 - 0.01 K/cumm JARRETT Comment:Testing performed by : [address] [address] Blood 09/22/2025 5:22 AM RESEARCH/PROGRAM DIRECTOR 09/22/2025 6:08 AM RESEARCH/PROGRAM DIRECTOR Marcelle Gala TELESALES PROFESSIONAL LAB BLOOD ORDERABLES Final R esult Performing Organization Address City/[facility] Co de Phone Number JARRETT [address] [place] [address] * Magnesium (09/22/2025 5:22 AM RESEARCH/PROGRAM DIRECTOR) Magnesium 1.8 1.4 - 2.5 mg/dL Comment:Testing performed by : [address] [address] Blood 09/22/2025 5:22 AM RESEARCH/PROGRAM DIRECTOR 09/22/2025 6:05 AM RESEARCH/PROGRAM DIRECTOR Marcelle Gala TELESALES PROFESSIONAL LAB BLOOD ORDERABLES Final R esult Performing Organization Address [facility] Co de Phone Number JARRETT [address] [place] [address] * (ABNORMAL) Basic metabolic panel (09/22/2025 5:22 AM RESEARCH/PROGRAM DIRECTOR) Pathologist [facility] [place] Sodium 139 135 - 145 mmol/L Comment:Testing performed by : [address] [address] Potassium, pl 4.0 3.3 - 4.9 mmol/L JARRETT Comment:Testing performed by : [address] [address] Chloride 103 97 - 110 mmol/L JARRETT Comment:Testing performed by : [address] [address] CO2 27 22 - 32 mmol/L JARRETT Comment:Testing performed by : [address] [address] Anion gap 9 2 - 15 mmol/L JARRETT Comment:Testing performed by : [address] [address] BUN 9 6 - 25 mg/dL JARRETT Comment:Testing performed by : [address] [address] Creatinine 0.50(L) 0.60 - 1.10 mg/dL JARRETT MCKAY Comment:Testing performed by : [address] [address] Glucose 111 70 - 199 mg/dL JARRETT Comment: Interpretive Data Fasting glucose >/= 126 mg/dl is diagnostic for diabetes. Fasting is defined as no caloric intake for at least 8 hours. Fasting glucose between 100 mg/dl to 125 mg/dl is diagnostic of prediabetes. In a patient with classic symptoms of hyperglycemia or hyperglycemic crisis, a random glucose >/= 200 mg/dl is diagnostic for diabetes. In the absence of unequivocal hyperglycemia, results should be confirmed by repeat testing. The classification and Diagnosis of Diabetes Diabetes Care 2021; 46: S19-S40. Current interpretive data was last revised 2022. Testing performed by: [address] [address] Calcium 8.7 8.5 - 10.3 mg/dL JARRETT Comment:Testing performed by : [address] [address] Blood 09/22/2025 5:22 AM RESEARCH/PROGRAM DIRECTOR 09/22/2025 6:05 AM RESEARCH/PROGRAM DIRECTOR Marcelle Neil NP LAB BLOOD ORDERABLES Final R esult JARRETT [address] [facility] Department of Laboratories [place], [place] [id number] * Strep pneumoniae antigen, urine Urine (09/21/2025 9:25 PM RESEARCH/PROGRAM DIRECTOR) S. pneumoniae Ag Negative Negative Comment: Interpretive Data A positive result is indicative of pneumococcal pneumonia in patients with severe CAP. Cross-reactivity with closely related Streptococcus bacteria may occur. A negative result suggests no current or recent pneumococcal infection but cannot rule out infection with S. pneumoniae. The results of this testing should be used in conjunction with clinical findings and other diagnostic testing, including microbiologic culture. Current Interpretive Data was last revised on 2022 Urine 09/21/2025 9:25 PM RESEARCH/PROGRAM DIRECTOR 09/21/2025 11:03 PM RESEARCH/PROGRAM DIRECTOR Marcelle Neil NP LAB MICROBIOLOGY - GENERAL O RDERABLES Final Result Performing Organization Address [facility] Co de Phone Number JARRETT [facility] [place] [address] * (ABNORMAL) Troponin T high-sensitivity 2-hour (09/21/2025 3:48 PM RESEARCH/PROGRAM DIRECTOR) Trop T hs 29(H) <=14 ng/L Comment: Interpretive Data For further hscTnT resources including the diagnostic algorithm and an aid in interpretation, copy and paste this link: https://nrl.testcatalog.org/show/hsTrop Current Interpretive Data last revised 2020. Testing performed by: [facility], [address] [place] [address]., [address] Trop T hs delta 3 ng/L JARRETT Comment:Testing performed by : [address] [address] Trop T hs interp Insignificant JARRETT Comment:Testing performed by : [facility], [address] [place] [address]., [address] Blood 09/21/2025 3:48 PM RESEARCH/PROGRAM DIRECTOR 09/21/2025 3:53 PM RESEARCH/PROGRAM DIRECTOR Rehab Sameer BENJAMIN LAB BLOOD ORDERABLES Final Resu lt Performing Organization Address [facility] Co de Phone Number JARRETT [facility]1 [facility] [place] [address] * Check Sample (09/21/2025 2:40 PM RESEARCH/PROGRAM DIRECTOR) ABO Rh A Negative JARRETT HCLL OTHER 09/21/2025 2:40 PM RESEARCH/PROGRAM DIRECTOR 09/21/2025 2:45 PM RESEARCH/PROGRAM DIRECTOR Annmarie Estrella MD LAB BLOOD ORDERABLES Final Resu lt Performing Organization Address [facility] Co de Phone Number JARRETT [address] [facility] [place] [address] * Urinalysis reflex to microscopic and culture Urine (09/21/2025 2:40 PM RESEARCH/PROGRAM DIRECTOR) Color, ur Straw Yellow Comment:Testing performed by : [address] [address] Clarity, ur Clear Clear JARRETT Comment:Testing performed by : [address], [place]., [address] Specific gravity, ur 1.008 1.003 - 1.030 JARRETT Comment:Testing performed by : [address], [place]., [address] pH, urine 5.5 JARRETT Comment: Interpretive Data U rine pH is affected by diet, medications, systemic acid-base disturbances, and renal tubular function. pH may affect urinary stone formation. For example, urine pH below 6.0 may help reduce the tendency for calcium phosphate stones and pH greater than 6.0 may reduce the tendency for uric acid stone formation. Source: [facility] [employer] Current Interpretive Data was last revised on 2017 Testing performed by: [address] [address] Protein, ur ql Negative Negative JARRETT Comment:Testing performed by : [address] [address] Glucose, ur ql Negative Negative JARRETT Comment:Testing performed by : [address] [address] Ketones, ur Negative Negative JARRETT Comment:Testing performed by : [address] [address] Bilirubin, ur Negative Negative JARRETT Comment:Testing performed by : [address] [address] Blood, ur Negative Negative JARRETT Comment:Testing performed by : [address] [address] Urobilinogen, ur <2.0 <2.0 mg/dL JARRETT Comment:Testing performed by : [address] [address] Nitrite, ur Negative Negative JARRETT Comment:Testing performed by : [address] [address] Leukocyte esterase, ur Negative Negative JARRETT MCKAY Comment:Testing performed by : [facility], [address] [place] [address]., [address] UA reflex comment Reflex conditions for microscopic UA and culture not met. JARRETT MCKAY Comment:Testing performed by : [facility], [address] [place] [address]., [address] Urine 09/21/2025 2:40 PM RESEARCH/PROGRAM DIRECTOR 09/21/2025 2:45 PM RESEARCH/PROGRAM DIRECTOR us Rehab Sameer BENJAMIN LAB MICROBIOLOGY - GENERAL ORDE ESSIE Final Result JARRETT MCKAY [address] [facility] Department [place] [address] * Blood culture Blood Peripheral (09/21/2025 2:15 PM RESEARCH/PROGRAM DIRECTOR) Report Final Report: No growth Comment:Testing performed by : [facility], [address] [place]., [address] Blood (Peripheral) 09/21/2025 2:15 PM RESEARCH/PROGRAM DIRECTOR 09/21/2025 7:16 PM RESEARCH/PROGRAM DIRECTOR Narrative JARRETT MCKAY - 09/26/2025 7:01 AM RESEARCH/PROGRAM DIRECTOR From a different site than #1. Draw Blood cultures before administration of Antibiotics Collection->Peripheral 1. Blood cultures are incubated for 4 days on a continuously monitored blood culture system. The first report of a negative culture is issued within 24 hours of receipt of the specimen in the laboratory. 2. Positive culture results are reported as soon as they are detected. 3. The most important factor for detection of microbes in the setting of bloodstream infection is the volume of blood submitted for culture. Failure to collect an optimal blood volume can result in false negative blood cultures. 4. For pediatric patients, the recommended blood volume to collect follows a weight based strategy. See the electronic test catalog for collection instructions. 5. For positive blood cultures, a rapid molecular test may be performed for organism identification using the tremaine ePlex blood culture identification panel for gram positive (BCID-GP) and gram negative (BCID-GN) organisms. This nucleic acid amplification test detects microbial DNA in positive blood culture broth. This assay has been cleared by the [place] Food and Drug Administration and its performance characteristics have been verified by the [facility]. For questions about this culture, contact the Microbiology Laboratory at [phone]. Interpretive data was last revised on 24. us Rehab Sameer BENJAMIN LAB MICROBIOLOGY - GENERAL EMILY JESEJUAN LUIS Final Result JARRETT [address] [facility] Department [place] [address] * Blood culture Blood Peripheral (09/21/2025 2:15 PM RESEARCH/PROGRAM DIRECTOR) Report Final Report: No growth Comment:Testing performed by : [facility], [address] [facility] [place]., [address] Blood (Peripheral) 09/21/2025 2:15 PM RESEARCH/PROGRAM DIRECTOR 09/21/2025 7:11 PM RESEARCH/PROGRAM DIRECTOR Narrative JARRETT [facility] 09/26/2025 7:01 AM RESEARCH/PROGRAM DIRECTOR Draw Blood cultures before administration of Antibiotics Collection->Peripheral Received only aerobic blood culture bottle 1. Blood cultures are incubated for 4 days on a continuously monitored blood culture system. The first report of a negative culture is issued within 24 hours of receipt of the specimen in the laboratory. 2. Positive culture results are reported as soon as they are detected. 3. The most important factor for detection of microbes in the setting of bloodstream infection is the volume of blood submitted for culture. Failure to collect an optimal blood volume can result in false negative blood cultures. 4. For pediatric patients, the recommended blood volume to collect follows a weight based strategy. See the electronic test catalog for collection instructions. 5. For positive blood cultures, a rapid molecular test may be performed for organism identification using the tremaine ePlex blood culture identification panel for gram positive (BCID-GP) and gram negative (BCID-GN) organisms. This nucleic acid amplification test detects microbial DNA in positive blood culture broth. This assay has been cleared by the [place] Food and Drug Administration and its performance characteristics have been verified by the [facility]. For questions about this culture, contact the Microbiology Laboratory at [phone]. Interpretive data was last revised on 24. us Rehab Sameer BENJAMIN LAB MICROBIOLOGY - [facility] ESSIE Final Result JARRETT [address] [facility] Department [place] [address] * XR Chest 1 Vw Portable (09/21/2025 2:04 PM RESEARCH/PROGRAM DIRECTOR) Anatomical Region Laterality Modality Body, Chest N/A Computed Radiogr aphy 09/21/2025 2:14 PM RESEARCH/PROGRAM DIRECTOR Impressions 09/21/2025 2:14 PM RESEARCH/PROGRAM DIRECTOR 1. Interstitial prominence within the lungs, increased compared to the prior examination in 2019. Given pulmonary vascular enlargement consider edema superimposed on interstitial lung disease. There are patchy bilateral opacities as well, which could reflect edema or multifocal pneumonia, most evident in the right base. Small effusions pulmonary Correlate clinically. CT can be considered if necessary clinically for further evaluation. Radiographic follow-up recommended. 2. Cardiomegaly and pulmonary vascular enlargement. Electronically signed by: Marilia Bragg M.D. Narrative 09/21/2025 2:14 PM RESEARCH/PROGRAM DIRECTOR EXAM DESCRIPTION: XR CHEST 1 VIEW REASON FOR STUDY: Shortness of breath. Weakness. TECHNIQUE: Frontal radiographic view of the chest COMPARISON: 05/07/2019. FINDINGS: LUNGS/PLEURA: There is a background of interstitial prominence within the lungs, which appears greater than on prior study in 2019. Superimposed the airspace opacities are demonstrated throughout the right lung, greatest at the base and the in the upper to mid left lung field. Small effusions. No appreciable pneumothorax HEART/MEDIASTINUM: Cardiac silhouette is mildly enlarged likely magnified by technique. There is pulmonary vascular enlargement. Atherosclerotic calcification of the thoracic aorta. Sternotomy changes are noted. HARDWARE/LINES/TUBES: Sternotomy changes are present. Multiple monitoring leads. BONES: Degenerative changes. No acute abnormality. Procedure Note Marilia Bragg MD - 09/21/2025 EXAM DESCRIPTION: XR CHEST 1 VIEW REASON FOR STUDY: Shortness of breath. Weakness. TECHNIQUE: Frontal radiographic view of the chest COMPARISON: 05/07/2019. FINDINGS: LUNGS/PLEURA: There is a background of interstitial prominence within the lungs, which appears greater than on prior study in 2019. Superimposed the airspace opacities are demonstrated throughout the right lung, greatest at the base and the in the upper to mid left lung field. Small effusions. No appreciable pneumothorax HEART/MEDIASTINUM: Cardiac silhouette is mildly enlarged likely magnified by technique. There is pulmonary vascular enlargement. Atherosclerotic calcification of the thoracic aorta. Sternotomy changes are noted. HARDWARE/LINES/TUBES: Sternotomy changes are present. Multiple monitoring leads. BONES: Degenerative changes. No acute abnormality. IMPRESSION: 1. Interstitial prominence within the lungs, increased compared to the prior examination in 2019. Given pulmonary vascular enlargement consider edema superimposed on interstitial lung disease. There are patchy bilateral opacities as well, which could reflect edema or multifocal pneumonia, most evident in the right base. Small effusions pulmonary Correlate clinically. CT can be considered if necessary clinically for further evaluation. Radiographic follow-up recommended. 2. Cardiomegaly and pulmonary vascular enlargement. Electronically signed by: Marilia Bragg M.D. [facility] Same[facility] IMG XR PROCEDURES Final Result * Influenza A/B, RSV, and COVID-19 PCR Nasopharyngeal (09/21/2025 1:59 PM RESEARCH/PROGRAM DIRECTOR) COVID-19 RNA Negative Negative Comment:Testing performed by : [address] [address] Influenza A RNA Negative Negative [facility] Comment:Testing performed by : [address] [address] Influenza B RNA Negative Negative [facility] Comment:Testing performed by : [address] [address] RSV RNA Negative Negative [facility] Comment: Interpretive data: Testing performed by [facility]. This test is performed using the Voalte Xpert Xpress CoV-2/Flu/RSV plus assay. This is a multiplex, real-time reverse transcriptase PCR assay intended for the qualitative detection of nucleic acid from SARS-CoV-2, influenza A, influenza B, and respiratory syncytial virus. This assay has been cleared by the [place] Food and Drug administration. The performance characteristics have been verified by the [facility]. Results must be considered in the clinical context, and a negative result does not rule out infection. Interpretive Data last revised 2023 Testing performed by: [address] [address] Nasopharyngeal 09/21/2025 1: 59 PM RESEARCH/PROGRAM DIRECTOR 09/21/2025 2:07 PM RESEARCH/PROGRAM DIRECTOR Narrative JARRETT - 09/21/2025 2:54 PM RESEARCH/PROGRAM DIRECTOR Is the Patient experiencing symptoms consistent with COVID?->Unknown Rehab Sameer BENJAMIN LAB MICROBIOLOGY - GENERAL ORDE RABLES Final Result Performing Organization Address [facility] de Phone Number MARILYN[address] [place] [address] * (ABNORMAL) Troponin T high-sensitivity series (baseline, 2hr, 4hr, 6hr) (09/21/2025 1:57 PM RESEARCH/PROGRAM DIRECTOR) Trop T hs 26(H) <=14 ng/L Comment: Interpretive Data For further hscTnT resources including the diagnostic algorithm and an aid in interpretation, copy and paste this link: https://nrl.testcatalog.org/show/hsTrop Current Interpretive Data last revised 2020. Testing performed by: [address] [address] Blood 09/21/2025 1:57 PM RESEARCH/PROGRAM DIRECTOR 09/21/2025 2:08 PM RESEARCH/PROGRAM DIRECTOR [facility] LAB BLOOD ORDERABLES Final Resu lt Performing Organization Address [facility] Co de Phone Number [place]ILYNSARAH [place] [id number] [facility] [place] [address] * Sepsis Lactate w/ Reflex (09/21/2025 1:57 PM RESEARCH/PROGRAM DIRECTOR) Pathologist [facility] [place] Sepsis Lactate 1.6 0.7 - 2.0 mmol/L Comment:Testing performed by : [address] [address] Blood 09/21/2025 1:57 PM RESEARCH/PROGRAM DIRECTOR 09/21/2025 2:07 PM RESEARCH/PROGRAM DIRECTOR Rehab Sameer BENJAMIN LAB BLOOD ORDERABLES Final Resu lt Performing Organization Address City/[facility] Co de Phone Number JARRETT [facility] [employer] [place] [address] * eGFR (09/21/2025 1:57 PM RESEARCH/PROGRAM DIRECTOR) eGFR >90 >=60 mL/min/1. 73 m2 Comment: Interpretive Data Reference Interval Normal >/= 90 mL/min/1.73m2 Mildly decreased* 60 - 89 mL/min/1.73m2 Mildly to moderately decreased 45 - 59 mL/min/1.73m2 Moderately to severely decreased 30 - 44 mL/min/1.73m2 Severely decreased 15 - 29 mL/min/1.73m2 Kidney Failure < 15 mL/min/1.73m2 *Relative to young adult level Estimated glomerular filtration rate is determined by the 2020 CKD-EPI equation recommended by the National Kidney Foundation (A Unifying Approach to GFR Estimation: Recommendations of the NKF-ASK Task Force on Reassessing the Inclusion of Race in Diagnosing Kidney Disease, JASN 2020). The CKD-EPI equation should not be used for patients with unstable renal function and has not been validated in children and those over 70. Current interpretive data was last reviewed 2021. Testing performed by: [address] [address] Blood 09/21/2025 1:57 PM RESEARCH/PROGRAM DIRECTOR 09/21/2025 2:08 PM RESEARCH/PROGRAM DIRECTOR Rehab Sameer BENJAMIN LAB BLOOD ORDERABLES Final Resu lt Performing Organization Address City/[facility]/ZIP Co de Phone Number JARRETT [address] [facility] [employer] [place] [address] * (ABNORMAL) Differential, auto (09/21/2025 1:57 PM RESEARCH/PROGRAM DIRECTOR) Neutrophil abs 11.44(H) 1.50 - 6.50 K/cumm Comment:Testing performed by : [address] [address] Imm gran abs 0.06 0.00 - 0.10 K/cumm [facility] Comment:Testing performed by : [address] [address] Lymphocyte abs 0.82 0.80 - 3.30 K/cumm [facility] Comment:Testing performed by : [address] [address] Monocyte abs 0.92(H) 0.20 - 0.80 K/cumm [facility] Comment:Testing performed by : [address], [place]., [address] Eosinophil abs 0.09 0.00 - 0.50 K/cumm [facility] Comment:Testing performed by : [address] [address] Basophil abs 0.04 0.00 - 0.10 K/cumm [facility] Comment:Testing performed by : [address] [address] Neutrophil pct 85.6 % [facility] Comment: Interpretive Data Percent cell count reference ranges are not reported, since discordance with absolute values may lead to misinterpretation of CBC data. Current Interpretive Data was last revised on 2018. Testing performed by: [address] [address] Imm gran pct 0.4 % [facility] Comment: Interpretive Data Percent cell count reference ranges are not reported, since discordance with absolute values may lead to misinterpretation of CBC data. Current Interpretive Data was last revised on 2018. Testing performed by: [address] [address] Lymphocyte pct 6.1 % [facility] [place] Comment: Interpretive Data Percent cell count reference ranges are not reported, since discordance with absolute values may lead to misinterpretation of CBC data. Current Interpretive Data was last revised on 2018. Testing performed by: [address] [address] Monocyte pct 6.9 % [facility] [place] Comment: Interpretive Data Percent cell count reference ranges are not reported, since discordance with absolute values may lead to misinterpretation of CBC data. Current Interpretive Data was last revised on 2018. Testing performed by: [address] [address] Eosinophil pct 0.7 % JARRETT Comment: Interpretive Data Percent cell count reference ranges are not reported, since discordance with absolute values may lead to misinterpretation of CBC data. Current Interpretive Data was last revised on 2018. Testing performed by: [address] [address] Basophil pct 0.3 % JARRETT Comment: Interpretive Data Percent cell count reference ranges are not reported, since discordance with absolute values may lead to misinterpretation of CBC data. Current Interpretive Data was last revised on 2018. Testing performed by: [address] [address] Blood 09/21/2025 1:57 PM RESEARCH/PROGRAM DIRECTOR 09/21/2025 2:07 PM RESEARCH/PROGRAM DIRECTOR Rehab Sameer BENJAMIN LAB BLOOD ORDERABLES Final Resu lt JARRETT [address] [facility] [place] [address] * (ABNORMAL) Pro B-type natriuretic peptide (09/21/2025 1:57 PM RESEARCH/PROGRAM DIRECTOR) NT-proBNP 963(H) <=450 pg/mL Comment: Interpretive Comments: A. Dyspnea in Acute Care Setting All Ages: < 300 pg/ml, acute heart failure unlikely. < 50 yrs: 300 - 450 pg/ml, further investigation warranted. > 450 pg/ml, acute heart failure likely. 50 - 74 yrs: 300 - 900 pg/ml, further investigation warranted. > 900 pg/ml, acute heart failure likely . > or = 75 yrs: 450 - 1800 pg/ml, further investigation warranted. > 1800 pg/ml, acute heart failure likely. B. Non-acute Setting < 75 yrs < 125 pg/ml, rules out heart failure. > or = 125 pg/ml, further investigation warranted. > or = 75 yrs < 450 pg/ml, rules out heart failure. > or = 450 pg/ml, further investigation warranted. - Knowledge of each individual patient's NT-proBNP range may be more useful than using similar cut-points for every patient. Please note that marked elevations in NT-proBNP levels may be observed in state other than Left Ventricular Congestive Failure, including: acute coronary syndromes, right heart strain/failure (including pulmonary embolism and cor pulmonale), critical illness, renal failure, as well as advanced age. - References: 1. Karina RIVERA et.al. Eur Heart J. 2006:27:330-337. 2. Helga RIVERO, Jessica LEE. J. AM Chance Cardiol: Cardiovasc Imag. 2009;2: 216- 225. Interpretive Data Last Revised Date: 2018. Testing performed by: [address] [address] Blood 09/21/2025 1:57 PM RESEARCH/PROGRAM DIRECTOR 09/21/2025 2:08 PM RESEARCH/PROGRAM DIRECTOR us Rehab Sameer BENJAMIN LAB BLOOD ORDERABLES Final Resu lt JARRETT [address] [facility] Department [place] [address] * (ABNORMAL) CBC with auto differential (09/21/2025 1:57 PM RESEARCH/PROGRAM DIRECTOR) WBC 13.37(H) 3.80 - 9.90 K/cumm Comment:Testing performed by : [address] [address] Hgb 11.0(L) 11.9 - 15.5 g/dL JARRETT MCKAY Comment:Testing performed by : [address] [address] Hct 34.9(L) 35.6 - 45.5 % JARRETT MCKAY Comment:Testing performed by : [address] [address] Plt 265 150 - 400 K/cumm JARRETT MCKAY Comment:Testing performed by : [address] [address] MPV 9.9 9.1 - 12.3 fL JARRETT CMKAY Comment:Testing performed by : [address] [address] RBC 4.09 3.90 - 5.20 M/cumm JARRETT MCKAY Comment:Testing performed by : [address] [address] MCV 85.3 81.3 - 96.4 fL JARRETT MCKAY Comment:Testing performed by : [address] [address] MCH 26.9(L) 27.1 - 33.3 pg JARRETT MCKAY Comment:Testing performed by : [address] [address] MCHC 31.5(L) 32.3 - 35.7 g/dL JARRETT Comment:Testing performed by : [address], [address] RDW CV 15.8(H) 11.1 - 14.9 % JARRETT Comment:Testing performed by : [address] [address] RDW SD 45.6 35.7 - 48.1 fL JARRETT Comment:Testing performed by : [address] [address] NRBC abs 0.00 0.00 - 0.01 K/cumm JARRETT Comment:Testing performed by : [address] [address] Blood 09/21/2025 1:57 PM RESEARCH/PROGRAM DIRECTOR 09/21/2025 2:07 PM RESEARCH/PROGRAM DIRECTOR us Rehab Sameer BENJAMIN LAB BLOOD ORDERABLES Final Resu lt JARRETT [address] [facility] Department of Laboratories [place], [place] [id number] * Type and screen (09/21/2025 1:57 PM RESEARCH/PROGRAM DIRECTOR) Kiya, indirect Negative JARRETT MCKAY ABO Rh A Negative JARRETT MCKAY Blood 09/21/2025 1:57 PM RESEARCH/PROGRAM DIRECTOR 09/21/2025 2:07 PM RESEARCH/PROGRAM DIRECTOR Narrative JARRETT MCKAY - 09/21/2025 2:51 PM RESEARCH/PROGRAM DIRECTOR Has the patient had Daratumumab or Isatuximab in the past 6 months?->Unknown us Rehab Sameer BENJAMIN LAB BLOOD BANK TEST ORDERABLES Final Result JARRETT [address] [facility] [place] [address] * (ABNORMAL) Comprehensive metabolic panel (09/21/2025 1:57 PM RESEARCH/PROGRAM DIRECTOR) Sodium 139 135 - 145 mmol/L Comment:Testing performed by : [address] [address] Potassium, pl 4.1 3.3 - 4.9 mmol/L JARRETT Comment:Testing performed by : [address] [address] Chloride 102 97 - 110 mmol/L JARRETT Comment:Testing performed by : [address] [address] CO2 26 22 - 32 mmol/L JARRETT Comment:Testing performed by : [address] [address] Anion gap 11 2 - 15 mmol/L JARRETT Comment:Testing performed by : [address] [address] BUN 12 6 - 25 mg/dL JARRETT Comment:Testing performed by : [address] [address] Creatinine 0.50(L) 0.60 - 1.10 mg/dL JARRETT Comment:Testing performed by : [address] [address] Glucose 131 70 - 199 mg/dL JARRETT Comment: Interpretive Data Fasting glucose >/= 126 mg/dl is diagnostic for diabetes. Fasting is defined as no caloric intake for at least 8 hours. Fasting glucose between 100 mg/dl to 125 mg/dl is diagnostic of prediabetes. In a patient with classic symptoms of hyperglycemia or hyperglycemic crisis, a random glucose >/= 200 mg/dl is diagnostic for diabetes. In the absence of unequivocal hyperglycemia, results should be confirmed by repeat testing. The classification and Diagnosis of Diabetes Diabetes Care 2022; 46: S19-S40. Current interpretive data was last revised 2022. Testing performed by: [facility], [address] [place] [address], [address] Calcium 9.1 8.5 - 10.3 mg/dL JARRETT Comment:Testing performed by : [address] [address] Bilirubin, total 0.5 0.1 - 1.2 mg/dL JARRETT Comment:Testing performed by : [address], [address] Protein, pl 7.3 6.5 - 8.5 g/dL JARRETT Comment:Testing performed by : [address], [address] Albumin 3.9 3.5 - 5.0 g/dL JARRETT Comment:Testing performed by : [address], [address] Alk phos 82 40 - 130 Units/L JARRETT Comment:Testing performed by : [address] [address] ALT 7 7 - 45 Units/L JARRETT Comment:Testing performed by : [address] [address] AST 15 10 - 45 Units/L JARRETT Comment:Testing performed by : [address] [address] Blood 09/21/2025 1:57 PM RESEARCH/PROGRAM DIRECTOR 09/21/2025 2:08 PM RESEARCH/PROGRAM DIRECTOR us Rehab Sameer BENJAMIN LAB BLOOD ORDERABLES Final Resu lt JARRETT [address] [facility] Department [place] [address] * ECG 12 lead (09/21/2025 1:47 PM RESEARCH/PROGRAM DIRECTOR) Ventricular Rate EKG/Min 108 BPM [facility] Atrial Rate 108 BPM [facility] NH-Interval (MSEC) 146 ms [facility] QRS-Interval (MSEC) 86 ms [facility] QT-Interval (MSEC) 334 ms [facility] QTc 447 ms [facility] P [place] 65 degrees [facility] R [place] -12 degrees [facility] T [place] 105 degrees [facility] Diagnosis Sinus tachycardia Septal infarct , age undetermined Abnormal ECG No previous ECGs available Confirmed by MD SOLANO FAYE ([id number]) on 09/21/2025 4:33:48 PM [facility] 09/21/2025 1:47 PM RESEARCH/PROGRAM DIRECTOR 09/21/2025 4:33 PM RESEARCH/PROGRAM DIRECTOR us Annmarie Estrella MD ECG ORDERABLES Final Result Performing Organization Address [facility]/ZIP Co de Phone Number [facility] * Iron profile w/ IBC (08/23/2025 9:39 AM RESEARCH/PROGRAM DIRECTOR) Blood us Greg Brandon DO LAB BLOOD ORDERABLES Final R esult Performing Organization Address [facility] Co de Phone Number EXTERNAL LAB * CBC with auto differential (08/23/2025 9:39 AM RESEARCH/PROGRAM DIRECTOR) Blood Greg Brandon DO LAB BLOOD ORDERABLES Final R esult Performing Organization Address [facility] Co de Phone Number EXTERNAL LAB * Ferritin (08/23/2025 9:39 AM RESEARCH/PROGRAM DIRECTOR) Blood Greg Brandon DO LAB BLOOD ORDERABLES Final R esult Performing Organization Address [facility] Co de Phone Number EXTERNAL LAB from Last 3 Months Insurance [facility] [place] [id number] [employer] MEDICARE ADVANTAGE [place] [id number] MEDICARE [facility] Address: [address] [place] [id number] [facility] MEDICARE SUPPLEMENT INSURANCE [facility] Advance Directives For more information, please contact: [phone] * Full Code (Latest Code Status on File) Date Activated Date Inactivated Comments 09/21/2025 7:38 PM 09/24/2025 9:32 PM * Full Code Date Activated Date Inactivated Comments 05/01/2019 3:47 PM 05/07/2019 7:53 PM Care Teams Laborer Airport Maintenance Relationship Specialty Start Date End Date Jessie Acosta MD PCP - General Family Practice 09/03/18 Greg Brandon DO [address] [place] [id number] Medical Oncologist/Hospice Aide Hematology and Oncology 06/03/19
--- OUTSIDE RECORDS SUMMARY | 2025-10-04 16:49 | XMS_ITS | Clinical Summary ---
Author Organization [facility] [employer] Address [address] [facility] [place] [address] Care Team Providers Care Apiarist Name Role Phone Jessie Acosta MD Primary Care Provider Source Comments [facility] [employer],non-owned Affiliates and Associated Physician Practices is amultiple site organization consisting of ambulatory clinics and hospital sitesin [place], [place], [place] and [place]. This disclosure is being madepursuant to the Care Everywhere program and may not contain all information available regarding this patient. 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
--- OUTSIDE RECORDS SUMMARY | 2025-10-04 16:49 | XMS_ITS | Encounter Summary ---
Author Organization [facility] Address [address] [facility] [address] [place] [address] Care Team Providers Care Tentering Machine Off Bearer Name Role Phone Benjamin Soto Primary Care Provider [phone] Jessie Acosta MD Primary Care Provider Greg Brandon DO Unavailable [phone] Encounter Details Date Type Department Care Team (Late st Contact Info) Description 11/19/2016 Orders Only [facility] ProviderPresley MD [address] [place] [id number] Social History Tobacco Use Types Packs/Day Years Used Date Smoking Tobacco: Never Assessed Comments Unknown Sex and Gender Information Value Date Recorded Sex Assigned at Not on file Legal 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 Female 9:43 AM CARD 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 Gender Identity Not on file Sexual Orientation [...] Diagnoses Not on filedocumented in this encounter Additional Health Concerns Infection Onset Date Last Indicated Resolved Time COVID: Suspected 09/21/2025 09/21/2025 09/21/2025 2:56 PM CARD FIXER documented as of this encounter Care Teams Tentering Machine Off Bearer Relationship Specialty Start Date End Date Charles Benjamin Cornelius [address] [place] [id number] PCP - General 11/19/16 09/02/18 Jessie Acosta MD [address] [place] [id number] PCP - General Family Practice 09/03/18 Greg Brandon DO [address] [place] [id number] Medical Oncologist/Hematologis t Hematology and Oncology 06/03/19 documented as of this encounter
[2025-10-04 18:59] LABS: Alanine Aminotransferase 16 U/L (6-35); Albumin Level 3.8 g/dL (3.5-5.1); Alkaline Phosphatase 73 U/L (38-126); Anion Gap 6 mmol/L (4-12); Aspartate Amino Transferase 24 U/L (14-36); Bilirubin,Total 0.5 mg/dL (0.2-1.3); Blood Urea Nitrogen 15 mg/dL (7-17); Calcium 8.5 mg/dL (8.4-10.2); Carbon Dioxide 30 mmol/L (22-30); Chloride 105 mmol/L (98-107); Estimated Glomerular Filt Rate > 60; Glucose 125 mg/dL (65-110); Hematocrit 38.8 % (37.0-47.0); Hemoglobin 11.8 g/dL (12.0-15.0); Immature Granulocyte Percent A 0.9 % (0-0.5); Lymphocytes Absolute Auto 0.99 K/mm3 (0.9-3.2); Mean Corpuscular HGB Conc 30.4 g/dl (32-36); Mean Corpuscular Hemoglobin 27.0 pg (26-34); Mean Corpuscular Volume 88.8 fl (80-100); Nucleated Red Blood Cells Absolute Auto 0.000 K/mm3 (0.0-0.012); Nucleated Red Blood Cells Perc 0.0 % (0.0-0.2); Platelet Count Result 306 k/mm3 (150-375); Potassium 3.6 mmol/L (3.4-5.0); Red Blood Count 4.37 M/mm3 (4.2-5.4); Sodium 141 mmol/L (137-145); Total Protein 6.9 g/dL (6.3-8.2); White Blood Count 13.8 K/mm3 (4.5-10.0)
[2025-10-04 19:03] LABS: NT Pro B Type Natriuretic Pept 3290 pg/mL (19.9-100)
[2025-10-04 19:07] LABS: Hemoglobin A1C 5.6 % (<5.7)
== END 2025-10-04 15:11 | disposition home or self-care (01) ==
LOC: ANHGOSHLAB 15:10
PROVIDERS: PCP Family Medicine; Visit Provider Family Medicine
DX: D64.9 Anemia, unspecified (principal); R06.00 Dyspnea, unspecified; R60.0 Localized edema; R73.03 Prediabetes; I10 Essential (primary) hypertension
CPT/HCPCS: 36415; 80053; 83036; 83880; 85025

== ENCOUNTER 2025-10-11 11:20 | Outpatient (CLI) | payer MEDICARE, SELFPAY ==
--- OUTSIDE RECORDS SUMMARY | 2025-10-11 12:00 | XMS_ITS | Clinical Summary ---
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
--- OUTSIDE RECORDS SUMMARY | 2025-10-11 12:00 | XMS_ITS | Clinical Summary ---
Author Organization [facility] [address] Address [address] [place] [address] Care Team Providers Care Boiler Engineer Name Role Phone Jessie Acosta MD Primary Care Provider Greg Brandon DO Unavailable Allergies Active Allergy Reactions Criticality Noted [...] 09/21/2025 Assessment & Plan (09/23/2025 3:16 PM COUNTER CLERK TRACTOR PARTS): Multifocal pneumonia Suspected COPD exacerbation. Hx of [...] request. Assessment & Plan (09/22/2025 1:37 PM COUNTER CLERK TRACTOR PARTS): Multifocal pneumonia Suspected COPD exacerbation. Hx of [...] daily- Assessment & Plan (09/21/2025 6:36 PM COUNTER CLERK TRACTOR PARTS): Multifocal pneumonia Hx of COPD/pulmonary hypertension/iron-deficiency anemia [...] (04/23/2019): Added automatically from request for surgery [id number] Dyspnea on exertion 11/17/2018 01/08/20 22 Encounters Date Type Department Care Team Description 09/21/2025 1:37 PM COUNTER CLERK TRACTOR [employer]S - 09/24/2025 5:27 PM COUNTER CLERK TRACTOR [employer]S Hospital Encounter [place] [address] Med [address] [place] [address] Annmarie Estrella MD Gursahani, Kamal, MD Chowdhury, Farhanaz, MD Acute respiratory failure with hypoxia (HCC) (Primary Dx); Hypoxia Discharge Disposition: Discharge to home or self care 09/21/2025 12:45 PM COUNTER CLERK TRACTOR PARTS Infusion [facility] [place] at [address] [place] [address] Iron deficiency anemia, unspecified iron deficiency anemia type (Primary Dx); Iron deficiency anemia due to chronic blood loss 09/14/2025 12:45 PM COUNTER CLERK TRACTOR PARTS Infusion [facility] [place] at [address] [place] [address] Iron deficiency anemia, unspecified iron deficiency anemia type (Primary Dx); Iron deficiency anemia due to chronic blood loss 08/30/2025 Telephone [facility] [address] [place] [phone] Tisha Lang CMA 08/30/2025 Orders Only [facility] [address] [place] [phone] Nely Eagle, STEPHANIE 08/27/2025 2:15 PM COUNTER CLERK [employer]S Office Visit [facility] [address] [place] [address] [address] [place] [address] Greg Brandon, Iron deficiency anemia [...] than three times a week 09/22/2025 Attends S[employer] Services More than 4 times per year [...] any time in the past 12 m [facility], were you homeless or living in a mcc (including now)? 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 [employer] Not on file Not on file Not on fi le Last Filed Vital Signs Vital Sign Reading Time Taken Comments Blood Pressure 141/64 09/24/2025 3:29 PM COUNTER CLERK [employer]S Pulse 87 09/24/2025 3:29 PM COUNTER CLERK [employer]S Temperature 36.9 C (98.4 F) 09/24/2025 3:29 PM COUNTER CLERK [employer] Respiratory Rate 18 09/24/2025 3:29 PM COUNTER CLERK TRA[employer]S Oxygen Saturation 87% 09/24/2025 3:27 PM COUNTER CLERK TRACTOR [employer]S Inhaled Oxygen Concentration - - Weight 55.5 kg (122 lb 6.4 oz) 09/24/2025 4:10 A M COUNTER CLERK [employer]S Height 154.9 cm (5' 1) 09/21/2025 7:39 PM COUNTER CLERK [employer]S Body Mass Index 23.13 09/21/2025 7:39 PM COUNTER CLERK [employer]S Plan of Treatment Health Maintenance Due Date [...] 07/14 Medical Devices Implanted Type Area Gis Manager Device Identifier Shelf Expiration Date Model / Serial / Lot [employer] [id number] Inspiris Resilia Leaflet Sewing Ring 21mm Valve Aortic Bovine - [id number] - [id number] Implanted:Qty: 1 on 05/01/2019 by Doc Schneider MD at [facility] N/A: Heart [employer] 11/04/2020 [id number] / [id number] / [facility] 24-023-11 Drill-Free; Maxdrive Od2.3 Mm L11 Mm Self Retaining; Lock Sternal - [id number] Implanted:Qty: 4 on 05/01/2019 by Doc Schneider MD at [facility] N/A: Sternum [facility] 24-023-11 / / [facility] 24-025-48 Titanium 1.8mm 4 Hole Sternal Straight Plate Bone Midline - [id number] Implanted:Qty: 1 on 05/01/2019 by Doc Schneider MD at [facility] N/A: Sternum [facility] 24-025-48 / / Procedures Procedure Name Priority Date/Time Associated Diagnosis Comments HOME O2 EVAL (DESATURATION SCREEN) Routine 09/24/2025 10:00 AM COUNTER CLERK TRACTOR [employer]S EGFR Routine 09/24/2025 5:16 AM COUNTER CLERK [employer] DIFFERENTIAL AUTO Routine 09/24/2025 5:1 6 AM COUNTER CLERK [employer] BASIC METABOLIC PANEL Routine 09/24/2025 5:16 AM COUNTER CLERK [employer]S CBC WITH AUTO DIFFERENTIAL Routine 09/24/2025 5:16 AM COUNTER CLERK [employer]CTOR [employer]S LEGIONELLA ANTIGEN, URINE Routine 09/23/2025 6:04 AM COUNTER CLERK [employer]S EGFR Routine 09/23/2025 4:19 AM COUNTER CLERK [employer] DIFFERENTIAL AUTO Routine 09/23/2025 4:1 9 AM COUNTER CLERK [employer]S CBC WITH AUTO DIFFERENTIAL Routine 09/23/2025 4:19 AM COUNTER CLERK [employer]S BASIC METABOLIC PANEL Routine 09/23/2025 4:19 AM COUNTER CLERK [employer]S MYCOPLASMA PNEUMONIAE PCR Routine 09/22/2025 10:26 PM COUNTER CLERK [employer]S AEROBIC CULTURE AND GRAM STAIN Routine 09/22/2025 10:26 PM COUNTER CLERK [employer]S TRANSTHORACIC ECHO (TTE) COMPLETE W DOPPLER/CF W CONTRAST Routine 09/22/2025 12:45 PM COUNTER CLERK [employer]S EGFR Routine 09/22/2025 5:22 AM COUNTER CLERK [employer]S DIFFERENTIAL AUTO Routine 09/22/2025 5:2 2 AM COUNTER CLERK [employer]CTOR [employer]S CBC WITH AUTO DIFFERENTIAL Routine 09/22/2025 5:22 AM COUNTER CLERK [employer]S MAGNESIUM Routine 09/22/2025 5:22 AM COUNTER CLERK [employer]S BASIC METABOLIC PANEL Routine 09/22/2025 5:22 AM COUNTER CLERK [employer]S STREP PNEUMONIAE AG, URINE Routine 09/21/2025 9:25 PM COUNTER CLERK TRACTOR [employer]S TROPONIN T HIGH-SENSITIVITY 2-HOUR Timed 09/21/2025 3:48 PM COUNTER CLERK [employer]S B CHECK SAMPLE STAT 09/21/2025 2:40 PM COUNTER CLERK [employer]S URINALYSIS AND REFLEX TO MICROSCOPIC AND CULTURE STAT 09/21/2025 2:40 PM COUNTER CLERK [employer]CTOR [employer]S BLOOD CULTURE STAT 09/21/2025 2:15 PM COUNTER CLERK [employer]S BLOOD CULTURE STAT 09/21/2025 2:15 PM COUNTER CLERK TRACTOR [employer]S XR CHEST 1 VIEW ED 09/21/2025 2:04 PM COUNTER CLERK TRACTOR [employer]S INFLUENZA A/B, RSV, AND COVID-19 PCR STAT 09/21/2025 1:59 PM COUNTER CLERK TRACTOR [employer]S EGFR STAT 09/21/2025 1:57 PM COUNTER CLERK [employer]S DIFFERENTIAL AUTO STAT 09/21/2025 1:5 7 PM COUNTER CLERK [employer]S SEPSIS LACTATE WITH REFLEX STAT 09/21/2025 1:57 PM COUNTER CLERK [employer]CTOR [employer]S TYPE AND SCREEN STAT 09/21/2025 1:57 PM COUNTER CLERK TRACTOR [employer]S TROPONIN T HIGH-SENSITIVITY SERIES (BASELINE, 2HR, 4HR, 6HR) STAT 09/21/2025 1:57 PM COUNTER CLERK TRACTOR [employer]S PRO B-TYPE NATRIURETIC PEPTIDE STAT 09/21/2025 1:57 PM COUNTER CLERK [employer]S COMPREHENSIVE METABOLIC PANEL STAT 09/21/2025 1:57 PM COUNTER CLERK TRACTOR [employer]S CBC WITH AUTO DIFFERENTIAL STAT 09/21/2025 1:57 PM COUNTER CLERK TRACTOR [employer]S ECG 12-LEAD STAT 09/21/2025 1:47 PM COUNTER CLERK TRACTOR [employer]S IRON PROFILE W/ IBC Routine 08/23/2025 9 :39 AM COUNTER CLERK TRACTOR [employer]S Iron deficiency anemia, unspecified iron deficiency anemia type FERRITIN Routine 08/23/2025 9:39 AM COUNTER CLERK TRACTOR [employer]S Iron deficiency anemia, unspecified iron deficiency anemia type CBC WITH AUTO DIFFERENTIAL Routine 08/23/2025 9:39 AM COUNTER CLERK TRACTOR PARTS Iron deficiency anemia, unspecified iron deficiency anemia type from Last 3 Months Results * eGFR (09/24/2025 5:16 AM COUNTER CLERK TRACTOR PARTS) [facility] eGFR 90 >=60 mL/min/1. 73 m2 [...] was last reviewed 2021. Testing performed by: [address] [address] Blood 09/24/2025 5:16 AM COUNTER CLERK TRACTOR [employer]S 09/24/2025 5:32 AM COUNTER CLERK TRACTOR PARTS us Chai Lopez MD LAB BLOOD ORDERABLES Final Result JARRETT MCKAY [address] [facility] Department of Laboratories [place], [place] [id number] * (ABNORMAL) Differential, auto (09/24/2025 5:16 AM COUNTER CLERK TRACTOR PARTS) Neutrophil abs 6.95(H) 1.50 - 6.50 K/cumm Comment:Testing performed by : [address] [address] Imm gran abs 0.06 0.00 - 0.10 K/cumm JARRETT MCKAY Comment:Testing performed by : [address] [address] Lymphocyte abs 1.20 0.80 - 3.30 K/cumm JARRETT MCKAY Comment:Testing performed by : [address] [address] Monocyte abs 0.77 0.20 - 0.80 K/cumm MARILYNJACOB Comment:Testing performed by : [address] [address] Eosinophil abs 0.01 0.00 - 0.50 K/cumm JRARETT Comment:Testing performed by : [address] [address] Basophil abs 0.02 0.00 - 0.10 K/cumm [facility] Comment:Testing performed by : [address] [address] Neutrophil pct 77.2 % [facility] Comment: Interpretive Data Percent cell count reference ranges are not reported, since discordance with absolute values may lead to misinterpretation of CBC data. Current Interpretive Data was last revised on 2018. Testing performed by: [address] [address] Imm gran pct 0.7 % [facility] Comment: Interpretive Data Percent cell count reference ranges are not reported, since discordance with absolute values may lead to misinterpretation of CBC data. Current Interpretive Data was last revised on 2018. Testing performed by: [address] [address] Lymphocyte pct 13.3 % [facility] Comment: Interpretive Data Percent cell count reference ranges are not reported, since discordance with absolute values may lead to misinterpretation of CBC data. Current Interpretive Data was last revised on 2018. Testing performed by: [address] [address] Monocyte pct 8.5 % [facility] Comment: Interpretive Data Percent cell count reference ranges are not reported, since discordance with absolute values may lead to misinterpretation of CBC data. Current Interpretive Data was last revised on 2018. Testing performed by: [address] [address] Eosinophil pct 0.1 % [facility] Comment: Interpretive Data Percent cell count reference ranges are not reported, since discordance with absolute values may lead to misinterpretation of CBC data. Current Interpretive Data was last revised on 2018. Testing performed by: [address] [address] Basophil pct 0.2 % [facility] Comment: Interpretive Data Percent cell count reference ranges are not reported, since discordance with absolute values may lead to misinterpretation of CBC data. Current Interpretive Data was last revised on 2018. Testing performed by: [address] [address] Blood 09/24/2025 5:16 AM COUNTER CLERK TRACTOR [employer]S 09/24/2025 5:41 AM COUNTER CLERK TRACTOR [employer]S us Marcelle Neil BOOKING POLICE OFFICER LAB BLOOD ORDERABLES Final R esult JARRETT [address] [facility] Department [place] [address] * (ABNORMAL) CBC with auto differential (09/24/2025 5:16 AM COUNTER CLERK TRACTOR PARTS) WBC 9.01 3.80 - 9.90 K/cumm Comment:Testing performed by : [address] [address] Hgb 9.2(L) 11.9 - 15.5 g/dL JARRETT Comment:Testing performed by : [address] [address] Hct 29.9(L) 35.6 - 45.5 % JARRETT Comment:Testing performed by : [address] [address] Plt 222 150 - 400 K/cumm JARRETT Comment:Testing performed by : [address] [address] MPV 10.1 9.1 - 12.3 fL JARRETT Comment:Testing performed by : [address] [address] RBC 3.48(L) 3.90 - 5.20 M/cumm JARRETT Comment:Testing performed by : [address] [address] MCV 85.9 81.3 - 96.4 fL JARRETT Comment:Testing performed by : [address] [address] MCH 26.4(L) 27.1 - 33.3 pg JARRETT MCKAY Comment:Testing performed by : [address] [address] MCHC 30.8(L) 32.3 - 35.7 g/dL JARRETT MCKAY Comment:Testing performed by : [address] [address] RDW CV 15.9(H) 11.1 - 14.9 % JARRETT MCKAY Comment:Testing performed by : [address] [address] RDW SD 47.4 35.7 - 48.1 fL JARRETT MCKAY Comment:Testing performed by : [address] [address] NRBC abs 0.00 0.00 - 0.01 K/cumm JARRTET MCKAY Comment:Testing performed by : [address] [address] Blood 09/24/2025 5:16 AM COUNTER CLERK TRACTOR [employer]S 09/24/2025 5:41 AM COUNTER CLERK TRACTOR [employer]S us Marcelle Neil NP LAB BLOOD ORDERABLES Final R esult JARRETT MCKAY [address] [facility] Department of Laboratories [place], [place] [id number] * (ABNORMAL) Basic metabolic panel (09/24/2025 5:16 AM COUNTER CLERK TRACTOR PARTS) Sodium 140 135 - 145 mmol/L Comment:Testing performed by : [address] [address] Potassium, pl 4.2 3.3 - 4.9 mmol/L JARRETT MCKAY Comment:Testing performed by : [address] [address] Chloride 104 97 - 110 mmol/L JARRETT MCKAY Comment:Testing performed by : [address] [address] CO2 30 22 - 32 mmol/L JARRETT MCKAY Comment:Testing performed by : [address] [address] Anion gap 6 2 - 15 mmol/L JARRETT Comment:Testing performed by : [address] [address] BUN 15 6 - 25 mg/dL JARRETT Comment:Testing performed by : [address] [address] Creatinine 0.57(L) 0.60 - 1.10 mg/dL JARRETT Comment:Testing performed by : [address] [address] Glucose 109 70 - 199 mg/dL JARRETT [...] was last revised 2022. Testing performed by: [address] [address] Calcium 9.0 8.5 - 10.3 mg/dL JARRETT Comment:Testing performed by : [address] [address] Blood 09/24/2025 5:16 AM COUNTER CLERK TRACTOR [employer]S 09/24/2025 5:32 AM COUNTER CLERK TRACTOR PARTS Chai Lopez MD LAB BLOOD ORDERABLES Final Result [facility] [address] [facility] Department [place] [address] * Legionella antigen Urine (09/23/2025 6:04 AM COUNTER CLERK TRACTOR PARTS) Legionella Ag Negative Negative Comment: Interpretive Data This test detects only Legionella pneumophila serogroup 1 antigen. Testing performed by [facility] ([phone]). Current interpretive data was last revised on 2019. Testing performed by: [facility], [address] [place]., [address] Urine 09/23/2025 6:04 AM COUNTER CLERK TRACTOR PARTS 09/23/2025 11:43 AM COUNTER CLERK TRACTOR PARTS Chai Lopez MD LAB MICROBIOLOGY - GENERAL ORDERABLES Final Result Performing Organization Address City/[facility]/ZIP Co de Phone Number JARRETT [address] [place] [address] * eGFR (09/23/2025 4:19 AM COUNTER CLERK TRACTOR PARTS) eGFR >90 >=60 mL/min/1. 73 m2 Comment: [...] was last reviewed 2021. Testing performed by: [facility], [address] [place] [address]., [address] Blood 09/23/2025 4:19 AM COUNTER CLERK [employer]CTOR [employer]S 09/23/2025 4:37 AM COUNTER CLERK TRACTOR [employer]S Marcelle Neil NP LAB BLOOD ORDERABLES Final R esult Performing Organization Address City/[facility]/ZIP Co de Phone Number MARILYN[address] [place] [address] * (ABNORMAL) Differential, auto (09/23/2025 4:19 AM COUNTER CLERK TRACTOR PARTS) Neutrophil abs 7.09(H) 1.50 - 6.50 K/cumm Comment:Testing performed by : [address] [address] Imm gran abs 0.06 0.00 - 0.10 K/cumm JARRETT Comment:Testing performed by : [address] [address] Lymphocyte abs 0.90 0.80 - 3.30 K/cumm [facility] Comment:Testing performed by : [address] [address] Monocyte abs 0.92(H) 0.20 - 0.80 K/cumm [facility] Comment:Testing performed by : [address], [place]., [address] Eosinophil abs 0.02 0.00 - 0.50 K/cumm JARRETT Comment:Testing performed by : [address] [address] Basophil abs 0.02 0.00 - 0.10 K/cumm [facility] Comment:Testing performed by : [address] [address] Neutrophil pct 78.7 % [facility] Comment: Interpretive Data Percent cell count reference ranges are not reported, since discordance with absolute values may lead to misinterpretation of CBC data. Current Interpretive Data was last revised on 2018. Testing performed by: [address] [address] Imm gran pct 0.7 % [facility] Comment: Interpretive Data Percent cell count reference ranges are not reported, since discordance with absolute values may lead to misinterpretation of CBC data. Current Interpretive Data was last revised on 2018. Testing performed by: [address] [address] Lymphocyte pct 10.0 % CERNER Comment: Interpretive Data Percent cell count reference ranges are not reported, since discordance with absolute values may lead to misinterpretation of CBC data. Current Interpretive Data was last revised on 2018. Testing performed by: [address] [address] Monocyte pct 10.2 % JARRETT Comment: Interpretive Data Percent cell count reference ranges are not reported, since discordance with absolute values may lead to misinterpretation of CBC data. Current Interpretive Data was last revised on 2018. Testing performed by: [address] [address] Eosinophil pct 0.2 % JARRETT MCKAY Comment: Interpretive Data Percent cell count reference ranges are not reported, since discordance with absolute values may lead to misinterpretation of CBC data. Current Interpretive Data was last revised on 2018. Testing performed by: [address] [address] Basophil pct 0.2 % JARRETT Comment: Interpretive Data Percent cell count reference ranges are not reported, since discordance with absolute values may lead to misinterpretation of CBC data. Current Interpretive Data was last revised on 2018. Testing performed by: [address] [address] Blood 09/23/2025 4:19 AM COUNTER CLERK [employer]S 09/23/2025 4:39 AM COUNTER CLERK TRACTOR [employer]S us Marcelle Neil NP LAB BLOOD ORDERABLES Final R esult JARRETT [address] [facility] Department [place] [address] * (ABNORMAL) CBC with auto differential (09/23/2025 4:19 AM COUNTER CLERK TRACTOR PARTS) WBC 9.01 3.80 - 9.90 K/cumm Comment:Testing performed by : [address] [address] Hgb 9.0(L) 11.9 - 15.5 g/dL JARRETT MCKAY Comment:Testing performed by : [address] [address] Hct 29.0(L) 35.6 - 45.5 % JARRETT MCKAY Comment:Testing performed by : [address] [address] Plt 194 150 - 400 K/cumm JARRETT MCKAY Comment:Testing performed by : [address] [address] MPV 9.9 9.1 - 12.3 fL JARRETT MCKAY Comment:Testing performed by : [address] [address] RBC 3.39(L) 3.90 - 5.20 M/cumm JARRETT MCKAY Comment:Testing performed by : [address] [address] MCV 85.5 81.3 - 96.4 fL JARRETT Comment:Testing performed by : [address] [address] MCH 26.5(L) 27.1 - 33.3 pg JARRETT Comment:Testing performed by : [address] [address] MCHC 31.0(L) 32.3 - 35.7 g/dL JARRETT Comment:Testing performed by : [address] [address] RDW CV 15.6(H) 11.1 - 14.9 % JARRETT Comment:Testing performed by : [address] [address] RDW SD 46.5 35.7 - 48.1 fL JARRETT Comment:Testing performed by : [address] [address] NRBC abs 0.00 0.00 - 0.01 K/cumm JARRETT Comment:Testing performed by : [address] [address] Blood 09/23/2025 4:19 AM COUNTER CLERK [employer]S 09/23/2025 4:39 AM COUNTER CLERK TRACTOR [employer] us Marcelle Neil NP LAB BLOOD ORDERABLES Final R esult JARRETT [address] [facility] Department of Laboratories [place], [place] [id number] * (ABNORMAL) Basic metabolic panel (09/23/2025 4:19 AM COUNTER CLERK TRACTOR PARTS) Sodium 140 135 - 145 mmol/L Comment:Testing performed by : [address] [address] Potassium, pl 4.1 3.3 - 4.9 mmol/L JARRETT Comment:Testing performed by : [address], [place]., [address] Chloride 105 97 - 110 mmol/L JARRETT Comment:Testing performed by : [address], [place]., [address] CO2 28 22 - 32 mmol/L JARRETT Comment:Testing performed by : [address] [address] Anion gap 7 2 - 15 mmol/L JARRETT Comment:Testing performed by : [address] [address] BUN 12 6 - 25 mg/dL JARRETT Comment:Testing performed by : [address] [address] Creatinine 0.48(L) 0.60 - 1.10 mg/dL [facility] Comment:Testing performed by : [address] [address] Glucose 131 70 - 199 mg/dL [facility] Comment: Interpretive Data Fasting glucose >/= 126 [...] was last revised 2022. Testing performed by: [address] [address] Calcium 8.8 8.5 - 10.3 mg/dL JARRETT Comment:Testing performed by : [address], [place]., [address] Blood 09/23/2025 4:19 AM COUNTER CLERK [employer]CTOR [employer]S 09/23/2025 4:37 AM COUNTER CLERK TRACTOR [employer]S Marcelle Neil NP LAB BLOOD ORDERABLES Final R esult Performing Organization Address [facility] Co de Phone Number JARRETT [address] [place] [address] * Mycoplasma pneumoniae PCR Sputum (09/22/2025 10:26 PM COUNTER CLERK TRACTOR PARTS) M. pneumoniae DNA Not Detected Not Detected [facility] Comment: Interpretive Data: This assay tests for the presence of Mycoplasma pneumoniae. This test is laboratory developed and its performance characteristics were determined by the performing laboratory in a manner consistent with CLIA requirements. This test has not been cleared or approved by the U.S. Food and Drug Administration. Current Interpretive Data was last revised on 2020. Testing performed by: [facility], [address] [place] [address]., [address] Sputum 09/22/2025 10:2 6 PM COUNTER CLERK [employer]CTOR [employer]S 09/23/2025 3:58 AM COUNTER CLERK TRACTOR [employer]S Chai Lopez MD LAB MICROBIOLOGY - GENERAL ORDERABLES Final Result Performing Organization Address [facility] de Phone Number JARRETT [address] [place] [address] [facility] * (ABNORMAL) Aerobic culture and gram stain Sputum Sputum (09/22/2025 10:26 PM COUNTER CLERK TRACTOR PARTS) Pathologist [facility] Direct Specimen Exam Stain: Abundant polymorphonuclear leukocytes seen. No squamous epithelial cells seen. Rare mixed bacterial moises seen on Gram stain. Comment:Testing performed by : [facility], [address] [place]., [address] Report Final Report: Aspergillus fumigatus Plus growth of clinically insignificant bacterial moises. (.) JARRETT MCKAY Comment:Testing performed by : [facility], [address] [place]., [address] Organism PLUS GROWTH OF CLINICALLY INSIGNIFICANT OMISES. JARRETT Organism ASPERGILLUS FUMIGATUS JARRETT Sputum (Sputum) 09/22/2025 1 0:26 PM COUNTER CLERK TRACTOR PARTS 09/23/2025 3:10 AM COUNTER CLERK TRACTOR PARTS Narrative JARRETT - 09/28/2025 11:44 AM COUNTER CLERK TRACTOR [employer]S Testing performed by [facility] ([phone]) Specimens submitted from normally sterile body sites [...] MICROBIOLOGY - GENERAL ORDERABLES Final Result JARRETT [facility] [place] [address] * TRANSTHORACIC ECHO (TTE) COMPLETE W DOPPLER/CF W CONTRAST (09/22/2025 12:45 PM COUNTER CLERK TRACTOR PARTS) Estimated EF 55-60 % CONS SCIMAGE Anatomical Region Laterality Modality Ultrasound 09/22/2025 12:1 4 PM COUNTER CLERK TRACTOR [employer]S Narrative 09/22/2025 6:31 PM COUNTER CLERK TRACTOR [employer]S Transthoracic Echocardiographic Report Patient Name: MARY ANN KLEIN A : 1940 (84y 9m) Sex: F Study Date: 09/22/2025 12:14:05 PM Ht(Inch): 61 Wt(Lb): 122.99 BSA: 1.54 Tool Technician: Leandra Smallwood RDCS Location: [id number] Order Provider: MARCELLE NEIL Heart Rate: 88 BMI: 23.24 BP: 124 / 62 Ref Provider: MARCELLE NEIL PROCEDURES: Echocardiographic Report: ([id number]) Transthoracic complete echo with contrast, 2D, spectral [...] By: Matheus Martin MD 09/22/2025 6:30:25 PM COUNTER CLERK [employer]CTOR [employer]S Procedure Note Matheus Martin MD - 09/22/2025 Transthoracic Echocardiographic Report Patient Name: MARY ANN KLEIN A : 1940 (84y 9m) Sex: F Study Date: 09/22/2025 12:14:05 PM Ht(Inch): 61 Wt(Lb): 122.99 BSA: 1.54 Tool Technician: Leandra Smallwood [facility] Location: [place] [address] Order Provider:MARCELLE NEIL Heart Rate: 88 BMI: 23.24 BP: 124 / 62 Ref Provider: MARCELLE NEIL PROCEDURES: Echocardiographic Report: ([id number]) Transthoracic complete echo withcontrast, 2D, spectral and [...] By: Matheus Martin MD 09/22/2025 6:30:25 PM COUNTER CLERK [employer] us Marcelle Neil NP CV ECHO PROCEDURES Final Res ult * eGFR (09/22/2025 5:22 AM COUNTER CLERK [employer]) eGFR >90 >=60 mL/min/1. 73 m2 Comment: [...] was last reviewed 2021. Testing performed by: [facility], [address] [place] [address], [place]., [address] Blood 09/22/2025 5:22 AM COUNTER CLERK [employer] 09/22/2025 6:05 AM COUNTER CLERK [employer] us Marcelle Neil BOOKING POLICE OFFICER LAB BLOOD ORDERABLES Final R esult JARRETT [address] [facility] Department [place] [address] * (ABNORMAL) Differential, auto (09/22/2025 5:22 AM COUNTER CLERK [employer]) Neutrophil abs 6.19 1.50 - 6.50 K/cumm Comment:Testing performed by : [address] [address] Imm gran abs 0.05 0.00 - 0.10 K/cumm JARRETT Comment:Testing performed by : [address] [address] Lymphocyte abs 1.20 0.80 - 3.30 K/cumm JARRETT Comment:Testing performed by : [address] [address] Monocyte abs 1.02(H) 0.20 - 0.80 K/cumm JARRETT Comment:Testing performed by : [address] [address] Eosinophil abs 0.19 0.00 - 0.50 K/cumm JARRETT Comment:Testing performed by : [address] [address] Basophil abs 0.02 0.00 - 0.10 K/cumm JARRETT Comment:Testing performed by : [address] [address] Neutrophil pct 71.4 % JARRETT Comment: Interpretive Data Percent cell count reference ranges are not reported, since discordance with absolute values may lead to misinterpretation of CBC data. Current Interpretive Data was last revised on 2018. Testing performed by: [address] [address] Imm gran pct 0.6 % JARRETT Comment: Interpretive Data Percent cell count reference ranges are not reported, since discordance with absolute values may lead to misinterpretation of CBC data. Current Interpretive Data was last revised on 2018. Testing performed by: [address] [address] Lymphocyte pct 13.8 % [facility] Comment: Interpretive Data Percent cell count reference ranges are not reported, since discordance with absolute values may lead to misinterpretation of CBC data. Current Interpretive Data was last revised on 2018. Testing performed by: [address] [address] Monocyte pct 11.8 % [facility] Comment: Interpretive Data Percent cell count reference ranges are not reported, since discordance with absolute values may lead to misinterpretation of CBC data. Current Interpretive Data was last revised on 2018. Testing performed by: [address] [address] Eosinophil pct 2.2 % [facility] Comment: Interpretive Data Percent cell count reference ranges are not reported, since discordance with absolute values may lead to misinterpretation of CBC data. Current Interpretive Data was last revised on 2018. Testing performed by: [address] [address] Basophil pct 0.2 % [facility] Comment: Interpretive Data Percent cell count reference ranges are not reported, since discordance with absolute values may lead to misinterpretation of CBC data. Current Interpretive Data was last revised on 2018. Testing performed by: [address] [address] Blood 09/22/2025 5:22 AM COUNTER CLERK [employer] 09/22/2025 6:08 AM COUNTER CLERK [employer] us Marcelle Neil NP LAB BLOOD ORDERABLES Final R esult [facility] [address] [facility] Department [place] [address] * (ABNORMAL) CBC with auto differential (09/22/2025 5:22 AM COUNTER CLERK [employer]) WBC 8.67 3.80 - 9.90 K/cumm Comment:Testing performed by : [address] [address] Hgb 9.2(L) 11.9 - 15.5 g/dL JARRETT Comment:Testing performed by : [address] [address] Hct 29.0(L) 35.6 - 45.5 % JARRETT Comment:Testing performed by : [address] [address] Plt 205 150 - 400 K/cumm JARRETT Comment:Testing performed by : [address] [address] MPV 9.9 9.1 - 12.3 fL JARRETT Comment:Testing performed by : [address] [address] RBC 3.39(L) 3.90 - 5.20 M/cumm JARRETT Comment:Testing performed by : [address] [address] MCV 85.5 81.3 - 96.4 fL JARRETT Comment:Testing performed by : [address] [address] MCH 27.1 27.1 - 33.3 pg JARRETT Comment:Testing performed by : [address] [address] MCHC 31.7(L) 32.3 - 35.7 g/dL JARRETT Comment:Testing performed by : [address] [address] RDW CV 15.5(H) 11.1 - 14.9 % JARRETT Comment:Testing performed by : [address] [address] RDW SD 46.3 35.7 - 48.1 fL JARRETT Comment:Testing performed by : [address] [address] NRBC abs 0.00 0.00 - 0.01 K/cumm JARRETT Comment:Testing performed by : [address] [address] Blood 09/22/2025 5:22 AM COUNTER CLERK [employer] 09/22/2025 6:08 AM COUNTER CLERK [employer] Marcelle Gala BOOKING POLICE OFFICER LAB BLOOD ORDERABLES Final R esult Performing Organization Address City/[facility] Co de Phone Number JARRETT [address] [email or web address] [address] * Magnesium (09/22/2025 5:22 AM COUNTER CLERK [employer]) Magnesium 1.8 1.4 - 2.5 mg/dL Comment:Testing performed by : [address] [address] Blood 09/22/2025 5:22 AM COUNTER CLERK [employer] 09/22/2025 6:05 AM COUNTER CLERK [employer] Marcelle Gala BOOKING POLICE OFFICER LAB BLOOD ORDERABLES Final R esult Performing Organization Address [facility] Co de Phone Number JARRETT [address] [place] [address] * (ABNORMAL) Basic metabolic panel (09/22/2025 5:22 AM COUNTER CLERK [employer]) Pathologist [facility] Sodium 139 135 - 145 mmol/L Comment:Testing performed by : [address] [address] Potassium, pl 4.0 3.3 - 4.9 mmol/L JARRETT Comment:Testing performed by : [address] [address] Chloride 103 97 - 110 mmol/L JARRETT Comment:Testing performed by : [address] [address] CO2 27 22 - 32 mmol/L JARRETT Comment:Testing performed by : [address] [address] Anion gap 9 2 - 15 mmol/L JARRETT Comment:Testing performed by : [address] [address] BUN 9 6 - 25 mg/dL JARRETT Comment:Testing performed by : [address] [address] Creatinine 0.50(L) 0.60 - 1.10 mg/dL JARRETT MCKAY Comment:Testing performed by : [address] [address] Glucose 111 70 - 199 mg/dL JARRETT [...] was last revised 2022. Testing performed by: [address] [address] Calcium 8.7 8.5 - 10.3 mg/dL JARRETT Comment:Testing performed by : [address] [address] Blood 09/22/2025 5:22 AM COUNTER CLERK [employer] 09/22/2025 6:05 AM COUNTER CLERK [employer] Marcelle Neil NP LAB BLOOD ORDERABLES Final R esult JARRETT [address] [facility] Department of Laboratories [place], [place] [id number] * Strep pneumoniae antigen, urine Urine (09/21/2025 9:25 PM COUNTER CLERK [employer]) S. pneumoniae Ag Negative Negative Comment: Interpretive [...] revised on 2022 Urine 09/21/2025 9:25 PM COUNTER CLERK [employer] 09/21/2025 11:03 PM COUNTER CLERK [employer] Marcelle Neil NP LAB MICROBIOLOGY - GENERAL O RDERABLES Final Result Performing Organization Address [facility] Co de Phone Number JARRETT [facility]5 [facility] [place] [address] * (ABNORMAL) Troponin T high-sensitivity 2-hour (09/21/2025 3:48 PM COUNTER CLERK [employer]) Trop T hs 29(H) <=14 ng/L Comment: Interpretive Data For further hscTnT resources including the diagnostic algorithm and an aid in interpretation, copy and paste this link: https://nrl.testcatalog.org/show/hsTrop Current Interpretive Data last revised 2020. Testing performed by: [facility], [address] [place] [address]., [address] Trop T hs delta 3 ng/L JARRETT Comment:Testing performed by : [address] [address] Trop T hs interp Insignificant JARRETT Comment:Testing performed by : [facility], [address] [place] [address]., [address] Blood 09/21/2025 3:48 PM COUNTER CLERK [employer] 09/21/2025 3:53 PM COUNTER CLERK [employer] Rehab Sameer BENJAMIN LAB BLOOD ORDERABLES Final Resu lt Performing Organization Address [facility] Co de Phone Number JARRETT [facility]4 [facility] [place] [address] * Check Sample (09/21/2025 2:40 PM COUNTER CLERK [employer]) ABO Rh A Negative JARRETT HCLL OTHER 09/21/2025 2:40 PM COUNTER CLERK [employer] 09/21/2025 2:45 PM COUNTER CLERK [employer] Annmarie Estrella MD LAB BLOOD ORDERABLES Final Resu lt Performing Organization Address [facility] Co de Phone Number JARRETT [address] [facility] [place] [address] * Urinalysis reflex to microscopic and culture Urine (09/21/2025 2:40 PM COUNTER CLERK [employer]) Color, ur Straw Yellow Comment:Testing performed by : [address] [address] Clarity, ur Clear Clear JARRETT Comment:Testing performed by : [address], [place]., [address] Specific gravity, ur 1.008 1.003 - 1.030 JARRETT Comment:Testing performed by : [address], [place]., [address] pH, urine 5.5 JARRETT Comment: Interpretive Data U rine pH is affected by diet, medications, systemic acid-base disturbances, and renal tubular function. pH may affect urinary stone formation. For example, urine pH below 6.0 may help reduce the tendency for calcium phosphate stones and pH greater than 6.0 may reduce the tendency for uric acid stone formation. Source: [facility] [email or web address] Current Interpretive Data was last revised on 2017 Testing performed by: [address] [address] Protein, ur ql Negative Negative JARRETT Comment:Testing performed by : [address] [address] Glucose, ur ql Negative Negative JARRETT Comment:Testing performed by : [address] [address] Ketones, ur Negative Negative JARRETT Comment:Testing performed by : [address] [address] Bilirubin, ur Negative Negative JARRETT Comment:Testing performed by : [address] [address] Blood, ur Negative Negative JARRETT Comment:Testing performed by : [address] [address] Urobilinogen, ur <2.0 <2.0 mg/dL JARRETT Comment:Testing performed by : [address] [address] Nitrite, ur Negative Negative JARRETT Comment:Testing performed by : [address] [address] Leukocyte esterase, ur Negative Negative JARRETT MCKAY Comment:Testing performed by : [facility], [address] [place] [address]., [address] UA reflex comment Reflex conditions for microscopic UA and culture not met. JARRETT MCKAY Comment:Testing performed by : [facility], [address] [place] [address]., [address] Urine 09/21/2025 2:40 PM COUNTER CLERK [employer] 09/21/2025 2:45 PM COUNTER CLERK [employer] us Rehab Sameer BENJAMIN LAB MICROBIOLOGY - GENERAL ORDE ESSIE Final Result JARRETT MCKAY [address] [facility] Department [place] [address] * Blood culture Blood Peripheral (09/21/2025 2:15 PM COUNTER CLERK [employer]) Report Final Report: No growth Comment:Testing performed by : [facility], [address] [place]., [address] Blood (Peripheral) 09/21/2025 2:15 PM COUNTER CLERK [employer] 09/21/2025 7:16 PM COUNTER CLERK [employer] Narrative JARRETT MCKAY - 09/26/2025 7:01 AM COUNTER CLERK [employer] From a different site than #1. Draw [...] performance characteristics have been verified by the [facility] Microbiology Laboratory. For questions about this culture, contact the Microbiology Laboratory at [phone]. Interpretive data was last revised on 24. us Rehab Sameer BENJAMIN LAB MICROBIOLOGY - GENERAL EMILY JESEJUAN LUIS Final Result JARRETT [address] [facility] Department [place] [address] * Blood culture Blood Peripheral (09/21/2025 2:15 PM COUNTER CLERK [employer]) Report Final Report: No growth Comment:Testing performed by : [facility], [address] [place]., [address] Blood (Peripheral) 09/21/2025 2:15 PM COUNTER CLERK [employer] 09/21/2025 7:11 PM COUNTER CLERK [employer] Narrative JARRETT [facility] 09/26/2025 7:01 AM COUNTER CLERK [employer] Draw Blood cultures before administration of Antibiotics [...] performance characteristics have been verified by the [facility]biology [facility]. For questions about this culture, contact the Microbiology Laboratory at [phone]. Interpretive data was last revised on 24. us Rehab Sameer BENJAMIN LAB MICROBIOLOGY - [facility] ESSIE Final Result JARRETT [address] [facility] Department [place] [address] * XR Chest 1 Vw Portable (09/21/2025 2:04 PM COUNTER CLERK [employer]) Anatomical Region Laterality Modality Body, Chest N/A Computed Radiogr aphy 09/21/2025 2:14 PM COUNTER CLERK [employer] Impressions 09/21/2025 2:14 PM COUNTER CLERK [employer] 1. Interstitial prominence within the lungs, increased [...] Marilia Bragg M.D. Narrative 09/21/2025 2:14 PM COUNTER CLERK [employer] EXAM DESCRIPTION: XR CHEST 1 VIEW REASON [...] enlargement. Electronically signed by: Marilia Bragg M.D. [facility]AMIN IMG XR PROCEDURES Final Result * Influenza A/B, RSV, and COVID-19 PCR Nasopharyngeal (09/21/2025 1:59 PM COUNTER CLERK [employer]) COVID-19 RNA Negative Negative Comment:Testing performed by : [address] [address] Influenza A RNA Negative Negative [facility] Comment:Testing performed by : [address] [address] Influenza B RNA Negative Negative [facility] Comment:Testing performed by : [address] [address] RSV RNA Negative Negative [facility] Comment: Interpretive data: Testing performed by [facility]. This test is performed using the Dials Xpert Xpress CoV-2/Flu/RSV plus assay. This is a multiplex, real-time reverse transcriptase PCR assay intended for the qualitative detection of nucleic acid from SARS-CoV-2, influenza A, influenza B, and respiratory syncytial virus. This assay has been cleared by the [place] Food and Drug administration. The performance characteristics have been verified by the [facility]. Results must be considered in the clinical context, and a negative result does not rule out infection. Interpretive Data last revised 2023 Testing performed by: [address] [address] Nasopharyngeal 09/21/2025 1: 59 PM COUNTER CLERK [employer] 09/21/2025 2:07 PM COUNTER CLERK [employer] Narrative JARRETT - 09/21/2025 2:54 PM COUNTER CLERK [employer] Is the Patient experiencing symptoms consistent with COVID?->Unknown Rehab Sameer BENJAMIN LAB MICROBIOLOGY - GENERAL ORDE RABLES Final Result Performing Organization Address [facility] de Phone Number MARILYN[address] [place] [address] * (ABNORMAL) Troponin T high-sensitivity series (baseline, 2hr, 4hr, 6hr) (09/21/2025 1:57 PM COUNTER CLERK [employer]) Trop T hs 26(H) <=14 ng/L Comment: Interpretive Data For further hscTnT resources including the diagnostic algorithm and an aid in interpretation, copy and paste this link: https://nrl.testcatalog.org/show/hsTrop Current Interpretive Data last revised 2020. Testing performed by: [address] [address] Blood 09/21/2025 1:57 PM COUNTER CLERK [employer] 09/21/2025 2:08 PM COUNTER CLERK [employer]S [facility] Same[facility]ENJAMIN LAB BLOOD ORDERABLES Final Resu lt Performing Organization Address [facility] Co de Phone Number [place] [address] [facility] [place] [address] * Sepsis Lactate w/ Reflex (09/21/2025 1:57 PM COUNTER CLERK [employer]) Pathologist [facility] Sepsis Lactate 1.6 0.7 - 2.0 mmol/L Comment:Testing performed by : [address] [address] Blood 09/21/2025 1:57 PM COUNTER CLERK [employer] 09/21/2025 2:07 PM COUNTER CLERK [employer] Rehab Sameer BENJAMIN LAB BLOOD ORDERABLES Final Resu lt Performing Organization Address City/[facility] Co de Phone Number JARRETT [facility]0 [facility] [employer] [email or web address] [address] * eGFR (09/21/2025 1:57 PM COUNTER CLERK [employer]) eGFR >90 >=60 mL/min/1. 73 m2 Comment: [...] was last reviewed 2021. Testing performed by: [address] [address] Blood 09/21/2025 1:57 PM COUNTER CLERK [employer] 09/21/2025 2:08 PM COUNTER CLERK [employer] Rehab Sameer BENJAMIN LAB BLOOD ORDERABLES Final Resu lt Performing Organization Address City/[facility]/ZIP Co de Phone Number JARRETT [address] [facility] [employer] [email or web address] [address] * (ABNORMAL) Differential, auto (09/21/2025 1:57 PM COUNTER CLERK [employer]) Neutrophil abs 11.44(H) 1.50 - 6.50 K/cumm Comment:Testing performed by : [address] [address] Imm gran abs 0.06 0.00 - 0.10 K/cumm [facility] Comment:Testing performed by : [address] [address] Lymphocyte abs 0.82 0.80 - 3.30 K/cumm [facility] Comment:Testing performed by : [address] [address] Monocyte abs 0.92(H) 0.20 - 0.80 K/cumm [facility] Comment:Testing performed by : [address], [place]., [address] Eosinophil abs 0.09 0.00 - 0.50 K/cumm [facility] Comment:Testing performed by : [address] [address] Basophil abs 0.04 0.00 - 0.10 K/cumm [facility] Comment:Testing performed by : [address] [address] Neutrophil pct 85.6 % [facility] Comment: Interpretive Data Percent cell count reference ranges are not reported, since discordance with absolute values may lead to misinterpretation of CBC data. Current Interpretive Data was last revised on 2018. Testing performed by: [address] [address] Imm gran pct 0.4 % [facility] Comment: Interpretive Data Percent cell count reference ranges are not reported, since discordance with absolute values may lead to misinterpretation of CBC data. Current Interpretive Data was last revised on 2018. Testing performed by: [address] [address] Lymphocyte pct 6.1 % [facility] Comment: Interpretive Data Percent cell count reference ranges are not reported, since discordance with absolute values may lead to misinterpretation of CBC data. Current Interpretive Data was last revised on 2018. Testing performed by: [address] [address] Monocyte pct 6.9 % [facility] Comment: Interpretive Data Percent cell count reference ranges are not reported, since discordance with absolute values may lead to misinterpretation of CBC data. Current Interpretive Data was last revised on 2018. Testing performed by: [address] [address] Eosinophil pct 0.7 % JARRETT Comment: Interpretive Data Percent cell count reference ranges are not reported, since discordance with absolute values may lead to misinterpretation of CBC data. Current Interpretive Data was last revised on 2018. Testing performed by: [address] [address] Basophil pct 0.3 % JARRETT Comment: Interpretive Data Percent cell count reference ranges are not reported, since discordance with absolute values may lead to misinterpretation of CBC data. Current Interpretive Data was last revised on 2018. Testing performed by: [address] [address] Blood 09/21/2025 1:57 PM COUNTER CLERK [employer] 09/21/2025 2:07 PM COUNTER CLERK [employer] Rehab Sameer BENJAMIN LAB BLOOD ORDERABLES Final Resu lt JARRETT [address] [facility] Department [place] [address] * (ABNORMAL) Pro B-type natriuretic peptide (09/21/2025 1:57 PM COUNTER CLERK [employer]) NT-proBNP 963(H) <=450 pg/mL Comment: Interpretive Comments: [...] 2. Helga RIVERO, Jessica LEE. J. AM Cahnce Cardiol: Cardiovasc Imag. 2009;2: 216- 225. Interpretive Data Last Revised Date: 2018. Testing performed by: [address] [address] Blood 09/21/2025 1:57 PM COUNTER CLERK [employer] 09/21/2025 2:08 PM COUNTER CLERK [employer] us Rehab Sameer BENJAMIN LAB BLOOD ORDERABLES Final Resu lt JARRETT [address] [facility] Department [place] [address] * (ABNORMAL) CBC with auto differential (09/21/2025 1:57 PM COUNTER CLERK [employer]) WBC 13.37(H) 3.80 - 9.90 K/cumm Comment:Testing performed by : [address] [address] Hgb 11.0(L) 11.9 - 15.5 g/dL JARRETT MCKAY Comment:Testing performed by : [address] [address] Hct 34.9(L) 35.6 - 45.5 % JARRETT MCKAY Comment:Testing performed by : [address] [address] Plt 265 150 - 400 K/cumm JARRETT MCKAY Comment:Testing performed by : [address] [address] MPV 9.9 9.1 - 12.3 fL JARRETT MCKAY Comment:Testing performed by : [address] [address] RBC 4.09 3.90 - 5.20 M/cumm JARRETT MCKAY Comment:Testing performed by : [address] [address] MCV 85.3 81.3 - 96.4 fL JARRETT MCKAY Comment:Testing performed by : [address] [address] MCH 26.9(L) 27.1 - 33.3 pg JARRETT MCKAY Comment:Testing performed by : [address] [address] MCHC 31.5(L) 32.3 - 35.7 g/dL JARRETT Comment:Testing performed by : [address], [address] RDW CV 15.8(H) 11.1 - 14.9 % JARRETT Comment:Testing performed by : [address] [address] RDW SD 45.6 35.7 - 48.1 fL JARRETT Comment:Testing performed by : [address] [address] NRBC abs 0.00 0.00 - 0.01 K/cumm JARRETT Comment:Testing performed by : [address] [address] Blood 09/21/2025 1:57 PM COUNTER CLERK [employer] 09/21/2025 2:07 PM COUNTER CLERK [employer] us Rehab Sameer BENJAMIN LAB BLOOD ORDERABLES Final Resu lt JARRETT [address] [facility] Department of Laboratories [place], [place] [id number] * Type and screen (09/21/2025 1:57 PM COUNTER CLERK [employer]) Kiya, indirect Negative JARRETT MCKAY ABO Rh A Negative JARRETT MCKAY Blood 09/21/2025 1:57 PM COUNTER CLERK [employer] 09/21/2025 2:07 PM COUNTER CLERK [employer] Narrative JARRETT MCKAY - 09/21/2025 2:51 PM COUNTER CLERK [employer] Has the patient had Daratumumab or Isatuximab in the past 6 months?->Unknown us Rehab Sameer BENJAMIN LAB BLOOD BANK TEST ORDERABLES Final Result JARRETT [address] [facility] Department [place] [address] * (ABNORMAL) Comprehensive metabolic panel (09/21/2025 1:57 PM COUNTER CLERK [employer]) Sodium 139 135 - 145 mmol/L Comment:Testing performed by : [address] [address] Potassium, pl 4.1 3.3 - 4.9 mmol/L JARRETT Comment:Testing performed by : [address] [address] Chloride 102 97 - 110 mmol/L JARRETT Comment:Testing performed by : [address] [address] CO2 26 22 - 32 mmol/L JARRETT Comment:Testing performed by : [address] [address] Anion gap 11 2 - 15 mmol/L JARRETT Comment:Testing performed by : [address] [address] BUN 12 6 - 25 mg/dL JARRETT Comment:Testing performed by : [address] [address] Creatinine 0.50(L) 0.60 - 1.10 mg/dL JARRETT Comment:Testing performed by : [address] [address] Glucose 131 70 - 199 mg/dL JARRETT [...] was last revised 2022. Testing performed by: [facility], [address] [place] [address], [address] Calcium 9.1 8.5 - 10.3 mg/dL JARRETT Comment:Testing performed by : [address] [address] Bilirubin, total 0.5 0.1 - 1.2 mg/dL JARRETT Comment:Testing performed by : [address] [address], [address] Protein, pl 7.3 6.5 - 8.5 g/dL JARRETT Comment:Testing performed by : [address], [address] Albumin 3.9 3.5 - 5.0 g/dL JARRETT Comment:Testing performed by : [address], [address] Alk phos 82 40 - 130 Units/L JARRETT Comment:Testing performed by : [address] [address] ALT 7 7 - 45 Units/L JARRETT Comment:Testing performed by : [address] [address] AST 15 10 - 45 Units/L JARRETT Comment:Testing performed by : [address] [address] Blood 09/21/2025 1:57 PM COUNTER CLERK TRACTOR PARTS 09/21/2025 2:08 PM COUNTER CLERK [employer]CTOR [employer] [facility] Sameer BENJAMIN LAB BLOOD ORDERABLES Final Resu lt JARRETT [address] [facility] Department [place] [address] * ECG 12 lead (09/21/2025 1:47 PM COUNTER CLERK [employer]) Ventricular Rate EKG/Min 108 BPM [facility] Atrial Rate 108 BPM [facility] MI-Interval (MSEC) 146 ms [facility] QRS-Interval (MSEC) 86 ms [facility] QT-Interval (MSEC) 334 ms [facility] QTc 447 ms [facility] P Ray 65 degrees [facility] R Ray -12 degrees [facility] T Ray 105 degrees [facility] Diagnosis Sinus tachycardia Septal infarct , age undetermined Abnormal ECG No previous ECGs available Confirmed by MD SOLANO FAYE ([id number]) on 09/21/2025 4:33:48 PM [facility] 09/21/2025 1:47 PM COUNTER CLERK [employer] 09/21/2025 4:33 PM COUNTER CLERK [employer] us Annmarie Estrella MD ECG ORDERABLES Final Result Performing Organization Address [facility]/ZIP Co de Phone Number [facility] [place] * Iron profile w/ IBC (08/23/2025 9:39 AM COUNTER CLERK [employer]) Blood us Greg Brandon DO LAB BLOOD ORDERABLES Final R esult Performing Organization Address [facility] Co de Phone Number EXTERNAL LAB * CBC with auto differential (08/23/2025 9:39 AM COUNTER CLERK [employer]) Blood Greg Brandon DO LAB BLOOD ORDERABLES Final R esult Performing Organization Address [facility] Co de Phone Number EXTERNAL LAB * Ferritin (08/23/2025 9:39 AM COUNTER CLERK [employer]) Blood Greg Brandon DO LAB BLOOD ORDERABLES Final R esult Performing Organization Address [facility] Co de Phone Number EXTERNAL LAB from Last 3 Months Insurance [facility] MEDICARE ADVANTAGE [place] [id number] [employer] MEDICARE ADVANTAGE [place] [id number] MEDICARE [facility] MEDICARE SUPPLEMENT INSURANCE [facility] MEDICARE ADVANTAGE Advance Directives For more information, please contact: [phone] * Full Code (Latest Code Status on File) Date Activated Date Inactivated Comments 09/21/2025 7:38 PM 09/24/2025 9:32 PM * Full Code Date Activated Date Inactivated Comments 05/01/2019 3:47 PM 05/07/2019 7:53 PM Care Teams Boiler Engineer Relationship Specialty Start Date End Date Jessie Acosta MD PCP - General Family Practice 09/03/18 Greg Brandon DO [address] [place] [id number] Medical Oncologist/Prototype Fabricator Hematology and Oncology 06/03/19
--- OUTSIDE RECORDS SUMMARY | 2025-10-11 12:00 | XMS_ITS | Encounter Summary ---
Author Organization [facility] Address [address] [facility] [address] [place] [id number] Care Team Providers Care Radiator Repairer Name Role Phone Benjamin Soto Primary Care Provider [phone] Jessie Acosta MD Primary Care Provider Greg Brandon DO Unavailable [phone] Encounter Details Date Type Department Care Team (Late st Contact Info) Description 11/19/2016 Orders Only [facility] ProviderPresley MD [address] [place] [id number] Social History Tobacco Use Types Packs/Day Years Used Date Smoking Tobacco: Never Assessed Comments Unknown Sex and Gender Information Value Date Recorded Sex Assigned at Not on file Legal Sex Female 9:43 AM REPEATER OPERATOR Gender Identity Not on file Sexual [...] COVID: Suspected 09/21/2025 09/21/2025 09/21/2025 2:56 PM REPEATER OPERATOR documented as of this encounter Care Teams Radiator Repairer Relationship Specialty Start Date End Date Charles Benjamin Cornelius [address] [place] [id number] PCP - General 11/19/16 09/02/18 Jessie Acosta MD [address] [place] [id number] PCP - General Family Practice 09/03/18 Greg Brandon DO [address] [place] [id number] Medical Oncologist/Hematologis t Hematology and Oncology 06/03/19 documented as of this encounter
--- OUTSIDE RECORDS SUMMARY | 2025-10-11 12:00 | XMS_ITS | Clinical Summary ---
Author Organization [facility] Address [address] [facility] [address] Care Team Providers Care Combination Machine Tool Operator Name Role Phone Jessie Acosta MD Primary Care Provider Source Comments [facility],non-owned Affiliates and Associated Physician Practices is amultiple site organization consisting of ambulatory clinics and hospital sitesin [place], [place], [place] and [place]. This disclosure is being madepursuant to the Care Everywhere program and may not contain all information available regarding this patient. 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
[2025-10-11 13:40] LABS: Hematocrit 41.4 % (37.0-47.0); Hemoglobin 12.7 g/dL (12.0-15.0); Immature Granulocyte Percent A 0.6 % (0-0.5); Lymphocytes Absolute Auto 1.31 K/mm3 (0.9-3.2); Mean Corpuscular HGB Conc 30.7 g/dl (32-36); Mean Corpuscular Hemoglobin 27.2 pg (26-34); Mean Corpuscular Volume 88.7 fl (80-100); Nucleated Red Blood Cells Absolute Auto 0.000 K/mm3 (0.0-0.012); Nucleated Red Blood Cells Perc 0.0 % (0.0-0.2); Platelet Count Result 251 k/mm3 (150-375); Red Blood Count 4.67 M/mm3 (4.2-5.4); White Blood Count 9.1 K/mm3 (4.5-10.0)
[2025-10-11 14:04] LABS: NT Pro B Type Natriuretic Pept 345 pg/mL (19.9-100)
[2025-10-11 14:05] LABS: Alanine Aminotransferase 16 U/L (6-35); Albumin Level 4.3 g/dL (3.5-5.1); Alkaline Phosphatase 78 U/L (38-126); Anion Gap 5 mmol/L (4-12); Aspartate Amino Transferase 30 U/L (14-36); Bilirubin,Total 0.7 mg/dL (0.2-1.3); Blood Urea Nitrogen 17 mg/dL (7-17); Carbon Dioxide 31 mmol/L (22-30); Chloride 104 mmol/L (98-107); Estimated Glomerular Filt Rate > 60; Potassium 4.3 mmol/L (3.4-5.0); Sodium 140 mmol/L (137-145); Total Protein 7.9 g/dL (6.3-8.2)
[2025-10-11 14:17] LABS: Calcium 9.6 mg/dL (8.4-10.2); Glucose 116 mg/dL (65-110)
== END 2025-10-11 11:21 | disposition home or self-care (01) ==
LOC: ANHGOSHLAB 11:21
PROVIDERS: PCP Family Medicine; Visit Provider Family Medicine
DX: I11.0 Hypertensive heart disease with heart failure (principal); I51.89 Other ill-defined heart diseases; R09.02 Hypoxemia; R60.0 Localized edema
CPT/HCPCS: 36415; 80053; 83880; 85025